=== PATIENT | female | born 1940 | race Caucasian/White ===

== ENCOUNTER 2020-02-03 07:33 | Emergency (ER) | payer MEDICARE, SELFPAY ==
--- NOTE | ~2020-02-03 | XR_ITS ---
EXAMINATION: XR chest 1V portable EXAM DATE: 02/03/2020 08:45 INDICATION: Hypoglycemia. TECHNIQUE: Portable AP frontal chest x-ray was obtained. There is no prior study for comparison. FINDINGS: Moderate chronic hyperinflation. The cardiomediastinal silhouette is prominent but magnifie d on this AP technique. No confluent consolidation, pneumothorax or pleural effusion suspected. There is aortic arteriosclerosis. The bones are osteopenic. There are bony degenerative changes. IMPRESSION: 1. Hyperinflation. Reviewed, dictated and finalized at location B. IMPRESSION: 1. Hyperinflation.
--- NOTE | ~2020-02-03 | XR_ITS ---
EXAMINATION: XR foot RT min 3V EXAM DATE: 02/03/2020 08:46 INDICATION: Postoperative right foot pain. Infection. TECHNIQUE: Right foot dorsoplantar, lateral and oblique projections obtained and reviewed. There is no prior study for comparison. FINDINGS: Surgical changes from probable recent right 5th transmetatarsal amputation, with small foc i of subcutaneous gas identified laterally. Deformities to the 2nd-4th metatarsal bones. There is sof t tissue swelling. No evidence of acute erosive change. No radiopaque foreign bodies identified. 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 IMPRESSION: 1. Subcutaneous gas probably postoperative from recent right 5th transmetatarsal amputation, assumin g surgery was within the last week. Please clinically correlate. 2. Soft tissue swelling. 3. Chronic findings. Reviewed, dictated and finalized at location B. IMPRESSION: 1. Subcutaneous gas probably postoperative from recent right 5th transmetatars al amputation, assuming surgery was within the last week. Please clinically cor relate. 2. Soft tissue swelling. 3. Chronic findings.
[2020-02-03 07:30] VITALS: BP 114/71; PULSE 68; RESP 20; TEMP 36.7; O2SAT 95
--- NOTE | 2020-02-03 07:53 | ECG_ITS ---
Measurements Intervals [place] Rate: 63 P: 83 DC: 164 QRS: 68 QRSD: 87 T: 39 QT: 396 QTc: 408 Interpretive Statements SINUS RHYTHM NORMAL ECG Electronically Signed On 02-03-2020 12:07:46 CDT by David Villasenor D.O.
[2020-02-03 08:00] VITALS: BP 123/45; PULSE 63; RESP 16; O2SAT 98
[2020-02-03 08:02] LABS: Glucose Point of Care 108 (65-105)
--- NOTE | 2020-02-03 08:02 | ED.RECABL ---
HPI - Recheck/Abnormal Lab/Rx General Chief Complaint: Recheck/Abnormal Lab/Rx Stated Complaint: Low Blood Sugar Time Seen by Provider: 02/03/20 07:36 Source: patient Mode of arrival: EMS History of Present Illness HPI narrative: This patient is an 79 year old female with history of DM, HTN, osteomyelitis s/p right partial foot amputation 01/21/20 who presents for evaluation of hypoglycemia. Patient is staying at [facility] and this morning they found patient to have glucose of 32. Patient is unsure if she takes insulin but she states she felt fine before bed. She has no complaints now. She denies chest pain, sob, nausea, vomiting or fever. Related Data Home Medications Medication Instructions Recorded Confirmed albuterol sulfate INHALATION 02/03/20 02/03/20 carvedilol 02/03/20 fluticasone propion-salmeterol INHALATION 02/03/20 furosemide 02/03/20 glimepiride mg 02/03/20 lisinopril 02/03/20 lovastatin mg 02/03/20 potassium chloride meq PO 02/03/20 Allergies Allergy/AdvReac Type Severity Reaction Status Date / Time codeine Allergy Rash Verified 02/03/20 08:28 vancomycin Allergy Difficulty Verified 02/03/20 08:29 Breathing Review of Systems Review of Systems: All systems reviewed & are unremarkable except as noted in HPI and below Constitutional: Constitutional: Denies chills, Denies fever(s) and Denies weakness Cardiovascular: Cardiovascular: Denies chest pain and Denies radiating jaw, neck or arm pain Respiratory: Respiratory: Denies cough, Denies dyspnea and Denies wheezing Gastrointestinal: Gastrointestinal: Denies abdominal pain, Denies nausea and Denies vomiting [facility] Past Medical History Medical History (Updated 02/03/20 @ 11:08 by Serina Mcintosh MD) COPD (chronic obstructive pulmonary disease) Diabetes mellitus Hypertension Hypothyroid Surgical History Surgical History (Updated 02/03/20 @ 08:04 by Serina Mcintosh MD) Partial nontraumatic amputation of right foot Partial traumatic amputation of left foot Exam Const: General: no acute distress and alert Orientation/consciousness: patient oriented x3 (oriented to person, place, and age) HENMT: Head: normocephalic and atraumatic Face and sinus: face symmetric Mouth: Yes Normal oral and palatal mucosa present and Yes lip normal Eyes: Pupils: Equal, round and reactive pupils present EOM: EOMs intact bilaterally Resp: Effort & Inspection: normal respiratory effort, no retractions and no use of accessory muscles Auscultation: clear to auscultation bilaterally Cardio: Rate: regular rate Rhythm: regular rhythm GI: Inspection: non-distended Auscultation: normal bowel sounds and bowel sounds present Skin: Other: right foot with wound with sutures in place, there is opening to wound medial with purulent discharge and erythema Neuro: General: patient oriented x3 and moves all extremities Course Reevaluation(s) Reevaluation #1: I Discussed with patient and family that she has been accepted to [facility] since she has post op infection Date: 02/03/20 Time: 11:06 Consultations Consultation #1: I spoke with Dr. Lisa copeland who request patient to be given teflaro since she has allergy to vancomycin. He states patient may be accepted to tele. Date: 02/03/20 Time: 10:40 Vital Signs Vital signs: Vital Signs Temperature 98.0 F 02/03/20 07:30 Pulse Rate 68 02/03/20 07:30 Respiratory Rate 20 02/03/20 07:30 Blood Pressure 114/71 02/03/20 07:30 Pulse Oximetry 95 02/03/20 07:30 Temperature 98.0 F 02/03/20 07:30 Pulse Rate 64 02/03/20 11:15 Respiratory Rate 18 02/03/20 11:15 Blood Pressure 121/53 L 02/03/20 11:15 Pulse Oximetry 98 02/03/20 11:15 MDM - Recheck/Abnormal Lab/Rx Lab Data Attestation: I reviewed the patient's lab results. Result diagrams: 02/03/20 08:12 02/03/20 08:12 Labs: Lab Results 02/03/20 02/03/20 02/03/20 Range/Units
[2020-02-03 08:23] LABS: Basophils Absolute Auto 0.1 K/mm3 (0.0-0.1); Basophils Percent Auto 0.6 % (0.2-1.2); Eosinophils Percent Auto 4.1 % (0-4.4); Hematocrit 29.6 % (37.0-47.0); Hemoglobin 9.2 g/dL (12.0-15.0); Immature Granulocyte Percent A 2.1 % (0-0.5); Lymphocytes Absolute Auto 1.55 K/mm3 (0.9-3.2); Lymphocytes Percent Auto 6.5 % (18.3-44.2); Mean Corpuscular HGB Conc 31.1 g/dl (32-36); Mean Corpuscular Hemoglobin 29.2 pg (26-34); Mean Platelet Volume 9.5 fl (7.4-10.4); Monocytes Absolute Auto 1.1 K/mm3 (0.1-0.6); Monocytes Percent Auto 4.4 % (2.6-8.5); Neutrophils Absolute Auto 19.7 K/mm3 (1.3-6.7); Neutrophils Percent Auto 82.3 % (45.5-73.1); Platelet Count Result 483 k/mm3 (150-375); Red Blood Count 3.15 M/mm3 (4.2-5.4); Red Cell Distribution Width 14.1 % (11.5-14.5); White Blood Count 23.9 K/mm3 (4.5-10.0)
[2020-02-03 08:34] LABS: Blood Urea Nitrogen 32 mg/dL (7-17); Calcium 8.4 mg/dL (8.4-10.2); Carbon Dioxide 29 mmol/L (22-30); Chloride 103 mmol/L (98-107); Estimated Glomerular Filt Rate 53; Glucose 157 mg/dL (65-105); Potassium 4.6 mmol/L (3.4-5.0); Sodium 137 mmol/L (137-145)
[2020-02-03 09:00] VITALS: BP 109/50; PULSE 63; RESP 18; O2SAT 98
[2020-02-03 10:00] VITALS: BP 107/41; PULSE 63; RESP 16; O2SAT 97
[2020-02-03 10:28] LABS: Glucose Point of Care 157 (65-105)
[2020-02-03] MEDS: SODIUM CHLORIDE 0.9% IV 1,000 ML 999 ML IV CONT (10:52)
[2020-02-03 10:54] LABS: Add Urine Microscopic? YES; Appearance Urine Clear (Clear); Bacteria Urine Trace /hpf; Bilirubin Urine Negative (Negative); Color Urine Yellow (Yellow); Glucose Urine UA Negative (Negative); Ketones Urine Negative (Negative); Leukocyte Esterase Ur Trace LEU/UL (Negative); Mucus Urine Rare /lpf; Nitrate Urine Negative (Negative); Protein Urine 1+ mg/dL (Negative); Specific Grav Ur 1.015 (1.001-1.035); Squamous Epithelial Cell Urine Occasional /hpf (Few); Urobilinogen Urine Negative mg/dL (<2.0)
[2020-02-03 10:55] LABS: Blood Urine Negative (Negative)
[2020-02-03 11:15] VITALS: BP 121/53; PULSE 64; RESP 18; O2SAT 98
== END 2020-02-03 12:00 | disposition short-term general hospital (02) ==
PROVIDERS: Emergency Provider General Practice
DX: T87.43 Infection of amputation stump, right lower extremity (principal); E11.649 Type 2 diabetes mellitus with hypoglycemia without coma; D72.829 Elevated white blood cell count, unspecified; J44.9 Chronic obstructive pulmonary disease, unspecified; I10 Essential (primary) hypertension; E03.9 Hypothyroidism, unspecified; Z89.432 Acquired absence of left foot; Z89.431 Acquired absence of right foot; Z79.84 Long term (current) use of oral hypoglycemic drugs
CPT/HCPCS: 36415; 71045; 73630; 80048; 81001; 85025; 86140; 87086; 93005; 96365; 96367; 99285; J0131; J0712; J2543; J7030

== ENCOUNTER 2020-02-22 16:38 | Observation (INO) | payer MEDICARE, SELFPAY ==
--- NOTE | ~2020-02-22 | XR_ITS ---
EXAMINATION: XR chest 1V portable INDICATION: Shortness of breath and hypoxia TECHNIQUE: Portable AP chest at 1811 hours COMPARISON: 02/03/2020 FINDINGS: The lungs are free of acute opacities. There is no pleural effusion or pneumothorax. The he art size is normal. There is calcified atherosclerosis. Healed left-sided rib fractures are noted. IMPRESSION: 1. No acute cardiopulmonary abnormality. Reviewed, dictated and finalized at location A.
--- NOTE | ~2020-02-22 | NM_ITS ---
EXAMINATION: NM pulmonary perfusion DATE: 02/22/2020 21:10 INDICATION: Shortness of breath TECHNIQUE: 5.23 mCi Tc-99m MAA was administered intravenously for perfusion images. Scintigraphic ida ges of the chest were obtained. COMPARISON: None FINDINGS: Perfusion images show multiple nonsegmental defects in both lungs. IMPRESSION: 1. Low probability for pulmonary embolism. Reviewed, dictated and finalized at location A.
[2020-02-22 16:46] VITALS: BP 106/57; PULSE 63; RESP 20; O2SAT 97
--- NOTE | 2020-02-22 17:28 | ECG_ITS ---
Measurements Intervals [place] Rate: 56 P: 89 TX: 178 QRS: 73 QRSD: 87 T: 69 QT: 397 QTc: 385 Interpretive Statements SINUS BRADYCARDIA BASELINE ARTIFACT- I, III, AVL BORDERLINE ECG Electronically Signed On 02-23-2020 7:35:47 CDT by David Villasenor D.O.
--- NOTE | 2020-02-22 17:46 | ED.GENADULT ---
HPI - General Adult General Chief complaint: Shortness of Breath/Dyspnea Stated complaint: SOB Time Seen by Provider: 02/22/20 16:41 History of Present Illness HPI narrative: Patient is a 79 y/o female sent from [place] for SOB. The severity and onset is unknown. Patient currently denies SOB. She states that she feels fine and does not know why she is here. She also denies any chest pain or cough. Related Data Home Medications Medication Instructions Recorded Confirmed albuterol sulfate 2 inh INHALATION BID 02/03/20 02/03/20 carvedilol 02/03/20 fluticasone propion-salmeterol INHALATION 02/03/20 furosemide 02/03/20 glimepiride mg 02/03/20 lisinopril 02/03/20 lovastatin mg 02/03/20 potassium chloride meq PO 02/03/20 Allergies Allergy/AdvReac Type Severity Reaction Status Date / Time codeine Allergy Rash Verified 02/22/20 16:52 vancomycin Allergy Difficulty Verified 02/22/20 16:52 Breathing Review of Systems Review of Systems: ROS unobtainable: Yes unobtainable due to mental status [facility] Past Medical History Medical History COPD (chronic obstructive pulmonary disease) Diabetes mellitus Hypertension Hypothyroid Surgical History Surgical History Partial nontraumatic amputation of right foot Partial traumatic amputation of left foot Social History Social History Gender identity (if verbalized by the patient): Female Exam Const: General: no acute distress and well developed Orientation/consciousness: oriented to person and oriented to place HENMT: Head: normocephalic Ears: external ears normal General nose exam: Normal external nose present Eyes: General: appearance normal, both eyes and all related structures Conjunctivae: conjunctivae normal Neck: Neck: normal visual inspection and full ROM Chest: Chest palpation & inspection: normal inspection of the chest and no tenderness Resp: Effort & Inspection: normal respiratory effort Auscultation: clear to auscultation bilaterally Cardio: Rate: regular rate Rhythm: regular rhythm GI: GI Palp: No abdominal tenderness and Yes Soft to palpation Skin: General skin exam: normal color and turgor normal Neuro: General: oriented to person and oriented to place Cognition (Neuro): normal cognition Extrem: General: normal to inspection, full ROM and no pedal edema Other: s/p bilateral partial foot amputation Psych: Appearance: grossly normal Mental Status: mental status grossly normal Affect: normal affect Course Consultations Consultation #1: Discussed with Dr. Palma, who agrees to admit. Date: 02/22/20 Time: 22:50 Vital Signs Vital signs: Vital Signs Pulse Rate 63 02/22/20 16:46 Respiratory Rate 20 02/22/20 16:46 Blood Pressure 106/57 L 02/22/20 16:46 Pulse Oximetry 97 02/22/20 16:46 Pulse Rate 88 02/22/20 21:25 Respiratory Rate 20 02/22/20 21:25 Blood Pressure 102/52 L 02/22/20 21:25 Pulse Oximetry 92 02/22/20 21:25 Medical Decision Making Vital Signs Vital Signs: Vital Signs Pulse Rate 63 02/22/20 16:46 Respiratory Rate 20 02/22/20 16:46 Blood Pressure 106/57 L 02/22/20 16:46 Pulse Oximetry 97 02/22/20 16:46 Pulse Rate 88 02/22/20 21:25 Respiratory Rate 20 02/22/20 21:25 Blood Pressure 102/52 L 02/22/20 21:25 Pulse Oximetry 92 02/22/20 21:25 Lab Data Result diagrams: 02/22/20 18:33 02/22/20 18:33 Labs: Lab Results 02/22/20 02/22/20 02/22/20 Range/Units 18:33 18:33 18:33 WBC 11.9 H (4.5-10.0) K/mm3 RBC 3.78 L (4.2-5.4) M/mm3 Hgb 11.0 L (12.0-15.0) g/dL Hct 34.9 L (37.0-47.0) % MCV 92.3 (80-100) fl MCH 29.1 (26-34) pg MCHC 31.5 L (32-36) g/dl RDW 14.7 H (11.5-14.5) % Plt Count 234 D (150-375) k/mm3 MPV 10.0 (7.4-10.4)
[2020-02-22 18:41] LABS: Basophils Absolute Auto 0.1 K/mm3 (0.0-0.1); Basophils Percent Auto 0.8 % (0.2-1.2); Eosinophils Absolute Auto 1.2 K/mm3 (0-0.3); Eosinophils Percent Auto 9.7 % (0-4.4); Hematocrit 34.9 % (37.0-47.0); Immature Granulocyte Absolute 0.06 K/mm3 (0.00-0.031); Immature Granulocyte Percent A 0.5 % (0-0.5); Lymphocytes Absolute Auto 2.36 K/mm3 (0.9-3.2); Lymphocytes Percent Auto 19.9 % (18.3-44.2); Mean Corpuscular HGB Conc 31.5 g/dl (32-36); Mean Corpuscular Hemoglobin 29.1 pg (26-34); Mean Corpuscular Volume 92.3 fl (80-100); Neutrophils Absolute Auto 7.3 K/mm3 (1.3-6.7); Neutrophils Percent Auto 61.1 % (45.5-73.1); Platelet Count Result 234 k/mm3 (150-375); Red Blood Count 3.78 M/mm3 (4.2-5.4); Red Cell Distribution Width 14.7 % (11.5-14.5); White Blood Count 11.9 K/mm3 (4.5-10.0)
[2020-02-22 18:55] LABS: Alanine Aminotransferase 25 U/L (4-35); Albumin Level 3.4 g/dL (3.5-5.1); Alkaline Phosphatase 99 U/L (38-126); Aspartate Amino Transferase 40 U/L (14-36); Bilirubin,Total 0.3 mg/dL (0.2-1.3); Blood Urea Nitrogen 64 mg/dL (7-17); Calcium 9.2 mg/dL (8.4-10.2); Carbon Dioxide 27 mmol/L (22-30); Chloride 101 mmol/L (98-107); Estimated Glomerular Filt Rate 27; Glucose 77 mg/dL (65-105); Potassium 5.4 mmol/L (3.4-5.0); Sodium 135 mmol/L (137-145)
[2020-02-22 19:03] LABS: NT Pro B Type Natriuretic Pept 334 PG/ML (5-100)
[2020-02-22 19:05] LABS: Troponin I < 0.012 ng/mL (0.000-0.034)
[2020-02-22 19:20] VITALS: BP 91/56; PULSE 56; RESP 20; O2SAT 92
[2020-02-22 20:24] VITALS: BP 106/34; PULSE 56; RESP 20; O2SAT 92
[2020-02-22] MEDS: SODIUM CHLORIDE 0.9% IV 1,000 ML 999 ML IV CONT (20:25)
--- NOTE | 2020-02-22 20:41 | PC.NURSE ---
Called lab to draw pt 3 hour
[2020-02-22 21:11] LABS: Troponin I < 0.012 ng/mL (0.000-0.034)
[2020-02-22 21:25] VITALS: BP 102/52; PULSE 88; RESP 20; O2SAT 92
[2020-02-22 23:59] LABS: Troponin I < 0.012 ng/mL (0.000-0.034)
[2020-02-23 00:35] VITALS: BP 110/36; PULSE 61; RESP 16; TEMP 36.5; O2SAT 94; BMI 23.6
[2020-02-23] MEDS: SODIUM CHLORIDE 0.9% IV 1,000 ML 999 ML IV CONT (00:43)
--- NOTE | 2020-02-23 00:54 | ADMGEN ---
This patient, Sandra Levine, was admitted to [facility] Surg Room 323-01. Patient/family oriented to hospital policies and general routines including ID bracelet, bed and alarms, visiting hours, pain management, procedures, bathroom and other care routines, personal items, smoking policy, room service/diet, and visiting hours. Valuables list has been completed. Information on how to activate the Rapid Response Team has been discussed. Patient/Family are encouraged to report perceived risks to care and to ask questions if they do not understand what they are told or what they should do.
[2020-02-23] MEDS: SODIUM CHLORIDE 0.9% IV 1,000 ML 125 ML IV CONT (01:07)
[2020-02-23 06:00] VITALS: BP 113/34; PULSE 60; RESP 16; TEMP 36.7; O2SAT 95
[2020-02-23 06:22] LABS: Blood Urea Nitrogen 56 mg/dL (7-17); Calcium 8.6 mg/dL (8.4-10.2); Carbon Dioxide 23 mmol/L (22-30); Chloride 108 mmol/L (98-107); Estimated Glomerular Filt Rate 36; Glucose 77 mg/dL (65-105); Potassium 4.5 mmol/L (3.4-5.0); Sodium 137 mmol/L (137-145)
[2020-02-23 10:05] LABS: Glucose Point of Care 78 (65-105)
--- NOTE | 2020-02-23 10:21 | PM.IMHP ---
H&P: HPI History of Present Illness Chief complaint: gurpreet Narrative: Sandra Levine is a 79 year old female with a history of COPD, DM noninsulin dependent, hypothyroidism, who presented to the ER from [facility] after the patient was feeling short of breath. Patient states yesterday she was feeling short of breath and cannot get a deep breath than that is why she came to the emergency department. She denies any other associated symptoms of chest pain, fever, chills, cough, lightheadedness, dizziness, nausea, vomiting, abdominal pain, leg swelling, calf pain, change of color to her urine in the Casanova catheter, or confusion. I called the patient's SNF and talked to the nurse in charge of her who stated that yesterday she became very short of breath and was using accessory muscle use. Her oxygen saturation was 92% on room air but normally she is in the upper 90s. he was concerned due to her recent surgery and sudden shortness of breath that she needs to be sent to the emergency room for further evaluation. He stated that this was not like her and they called 911. He denies any confusion or any other associated symptoms other than the shortness of breath. Initial vital signs showed temperature of 97.7F, blood pressure 106/57, heart rate 63, respiratory rate 20, oxygen saturation 97% on room air. Initial labs showed slight leukocytosis at 11,000, normocytic anemia with a hemoglobin of 11/ hematocrit 34%. She appeared dehydrated with a creatinine 1.8, BUN 64, sodium 135, potassium elevated at 5.4. D-dimer was elevated at 5.4. troponin was negative x2. BNP was 334. chest x-ray showed no acute cardiopulmonary disease. Patient was admitted into the hospital for further evaluation of her shortness of breath and to receive a pulmonary perfusion scan to rule out pulmonary embolism. She was started on IV fluid hydration due to dehydration and GURPREET on labs. On January 18, the patient was found to have stepped on a needle and had a deep infection to her right great toe which required amputation at [facility] [place]. She was discharged to [facility] where she received wound care treatment and physical therapy. She developed a severe infection and required IV Zosyn which was discontinued on February 15. Patient's SNF nurse states her wound has been looking were well and is still having packing and dressing changes daily. Code: Full Code POA: Daughter Vladimir PCP: Dr. 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 Needed amputation to all 5 toes Social History Social History Smoking packs per day: 1 Smoking cigarettes per day: 20.0 Years smoked: 50 Smoking pack-years: 50.00 Smoking status: Former smoker Tobacco type: cigarettes Alcohol intake: never Substance use: never Additional living arrangements comments: Currently living at [facility] due to recent toe amputation and needing therapy Occupation/Education: retired Gender identity (if verbalized by the patient): Female Sexual Orientation (if Verbalized by the Patient): Straight or Heterosexual Spiritual care concerns: No Meds Home Medications and Allergies Home Medications Medication Instructions Recorded Confirmed Type albuterol sulfate 2 inh INHALATION BID 02/03/20 02/23/20 History carvedilol [Coreg] 25 mg PO DAILY 02/03/20 History furosemide 40 mg PO DAILY 02/03/20 02/23/20 History
[2020-02-23 10:48] LABS: Basophils Absolute Auto 0.1 K/mm3 (0.0-0.1); Basophils Percent Auto 0.8 % (0.2-1.2); Hematocrit 32.6 % (37.0-47.0); Hemoglobin 10.3 g/dL (12.0-15.0); Immature Granulocyte Absolute 0.04 K/mm3 (0.00-0.031); Immature Granulocyte Percent A 0.5 % (0-0.5); Lymphocytes Percent Auto 21.1 % (18.3-44.2); Mean Corpuscular HGB Conc 31.6 g/dl (32-36); Mean Corpuscular Hemoglobin 29.3 pg (26-34); Mean Corpuscular Volume 92.9 fl (80-100); Monocytes Absolute Auto 0.7 K/mm3 (0.1-0.6); Neutrophils Absolute Auto 4.9 K/mm3 (1.3-6.7); Neutrophils Percent Auto 57.6 % (45.5-73.1); Platelet Count Result 213 k/mm3 (150-375); Red Blood Count 3.51 M/mm3 (4.2-5.4); Red Cell Distribution Width 14.6 % (11.5-14.5); White Blood Count 8.5 K/mm3 (4.5-10.0)
[2020-02-23 11:10] LABS: Troponin I < 0.012 ng/mL (0.000-0.034)
[2020-02-23] MEDS: SODIUM CHLORIDE 0.9% IV 1,000 ML 75 ML IV CONT (12:11)
[2020-02-23 12:16] LABS: Add Urine Microscopic? YES; Appearance Urine Cloudy (Clear); Bacteria Urine Trace /hpf; Bilirubin Urine Negative (Negative); Blood Urine 1+ (Negative); Budding Yeast Urine Present /hpf; Color Urine Straw (Yellow); Glucose Urine UA Negative (Negative); Ketones Urine Negative (Negative); Leukocyte Esterase Ur 3+ LEU/UL (Negative); Mucus Urine Rare /lpf; Nitrate Urine Negative (Negative); Protein Urine Negative (Negative); Specific Grav Ur 1.012 (1.001-1.035); Squamous Epithelial Cell Urine Rare /hpf (Few); Urobilinogen Urine Negative mg/dL (<2.0); WBC Urine >75 /hpf
[2020-02-23 13:36] LABS: Glucose Point of Care 97 (65-105)
[2020-02-23 13:47] VITALS: BP 126/58
[2020-02-23 14:00] VITALS: BP 126/50; PULSE 62; RESP 16; TEMP 36.3; O2SAT 92
--- NOTE | 2020-02-23 14:14 | PM.DS ---
DS: Admitting Diagnosis Admitting Diagnosis Admitting Diagnosis: Shortness of breath DS: Discharge Diagnosis Discharge Diagnosis (1) Breath shortness: Code(s): R06.02 - Shortness of breath Status: Acute Assessment and Plan: She was sent to emergency room due to shortness of breath and using accessory muscles. Could have been secondary to COPD exacerbation or possibly an anxiety attack. She was placed on oxygen in route but is now resting comfortably on room air with 95%. Her lung sounds are clear without any new acute wheezing, rales or rhonchi. Chest x-ray was negative for any acute pulmonary disease. D-dimer was elevated and pulmonary perfusion study was completed showing low probability for PE. Patient is otherwise feeling well at this time without any complaints resting comfortably on room air. She will be discharged back to her SNF to continue with her inhaler as needed for shortness of breath. (2) GURPREET (acute kidney injury): Code(s): N17.9 - Acute kidney failure, unspecified Status: Acute Assessment and Plan: appear to be dehydrated on arrival with her labs showing a creatinine 1.8, BUN 64, and elevated potassium level of 5.4. She was started on IV fluids with improvement of her electrolytes and renal function. Will check BMP in 1 week. (3) COPD (chronic obstructive pulmonary disease): Code(s): J44.9 - Chronic obstructive pulmonary disease, unspecified Status: Acute Assessment and Plan: she is on a p.r.n. albuterol inhaler which the nurse states she has not used in about a month. Will encourage use of this inhaler as needed for shortness of breath or wheezing. (4) Diabetes mellitus: Code(s): E11.9 - Type 2 diabetes mellitus without complications Status: Acute Assessment and Plan: Serum glucose this morning was 77. We are holding her home glimepiride. will have him continue checking her glucose upon discharge. (5) Hypertension: Code(s): I10 - Essential (primary) hypertension Status: Acute Assessment and Plan: blood pressure is stable. Continue her on her home medications. (6) Abnormal urinalysis: Code(s): R82.90 - Unspecified abnormal findings in urine Status: Acute Assessment and Plan: a urinalysis was ordered due to her some slight confusion on where she was and was found to be abnormal with concerns of possible UTI. I called the patient's SNF and inform them to start her on cefdinir 300 mg Q 12 for 7 days and will continue monitoring her urine culture results and will be call if there is any adjustments are needed. DS: Summary Hospital Course Reason for hospitalization: Sandra Levine is a 79 year old female with a history of COPD, DM noninsulin dependent, hypothyroidism, who presented to the ER from [facility] after the patient was feeling short of breath. Initial vital signs showed temperature of 97.7F, blood pressure 106/57, heart rate 63, respiratory rate 20, oxygen saturation 97% on room air. Initial labs showed slight leukocytosis at 11,000, normocytic anemia with a hemoglobin of 11/ hematocrit 34%. She appeared dehydrated with a creatinine 1.8, BUN 64, sodium 135, potassium elevated at 5.4. D-dimer was elevated at 5.4. troponin was negative x2. BNP was 334. chest x-ray showed no acute cardiopulmonary disease. Patient was admitted into the hospital for further evaluation of her shortness of breath and to receive a pulmonary perfusion scan to rule out pulmonary embolism. She was started on IV fluid hydration due to dehydration and GURPREET on labs. please see abov
--- NOTE | 2020-02-25 10:22 | PC.NURSE ---
Urine cx- 50,000-100,000 yeast isolated. KIRILL Rayo aware.
--- NOTE | 2020-02-28 10:40 | PC.NURSE ---
Spoke with Cecilia, nurse at [facility], caring for patient. Gave her order for Fluconazole 100 mg po for 3 days.Instructed her the urine cx grew out yeast. States agreement and understanding. KIRILL Rayo ordered med for patient.
== END 2020-02-23 17:05 ==
LOC: ANHED 23:14 → ANH3MEDSUR 23:23
PROVIDERS: Physician Assistant; Admitting Provider Family Medicine; Emergency Provider Emergency Medicine; PCP Internal Medicine; Visit Provider Family Medicine
DX: N17.9 Acute kidney failure, unspecified (principal); J44.9 Chronic obstructive pulmonary disease, unspecified; R06.02 Shortness of breath; R82.90 Unspecified abnormal findings in urine; E11.9 Type 2 diabetes mellitus without complications; E03.9 Hypothyroidism, unspecified; I10 Essential (primary) hypertension; Z87.891 Personal history of nicotine dependence; Z89.411 Acquired absence of right great toe; Z89.422 Acquired absence of other left toe(s)
CPT/HCPCS: 36415; 71045; 78580; 80048; 80053; 81001; 83880; 84484; 85025; 85380; 87086; 93005; 96360; 96361; 99285; A9540; G0378; J7030

== ENCOUNTER 2021-03-28 09:25 | Emergency (ER) | payer MEDICARE, SELFPAY ==
--- NOTE | ~2021-03-28 | XR_ITS ---
EXAMINATION: XR shoulder LT min 2V DATE: 03/28/2021 09:54 INDICATION: Left shoulder pain. Fall. TECHNIQUE: 4 views of left shoulder were obtained. COMPARISON: Chest single view 02/22/2020 FINDINGS: Bone alignment is normal. There is a nondisplaced avulsion fracture of greater tuberosity. There is moderate osteoarthritis of glenohumeral joint and mild osteoarthritis of acromioclavicular j oint. There are old healed left rib fractures. IMPRESSION: 1. Nondisplaced avulsion fracture of greater tuberosity of proximal left humerus. 2. Polyarticular osteoarthritis. Reviewed, dictated and finalized at location A. IMPRESSION: 1. Nondisplaced avulsion fracture of greater tuberosity of proximal left humeru s. 2. Polyarticular osteoarthritis.
[2021-03-28 09:30] VITALS: BP 153/91; PULSE 92; RESP 14; TEMP 36.5; O2SAT 98
--- NOTE | 2021-03-28 10:08 | ED.FALL ---
HPI - Fall General Chief Complaint: Fall Stated Complaint: Fall, L arm pain Time Seen by Provider: 03/28/21 09:37 Source: RN notes reviewed History of Present Illness HPI Narrative: Patient presents to emergency department from home for left shoulder pain. Patient states yesterday afternoon she tripped and fell onto her left side she states she had pain in her left shoulder since that time pain is with any movement she striking her head or loss of consciousness she denies any other injuries. Patient denies any pain in the elbow or wrist denies any numbness or tingling in the extremities Related Data Home Medications Medication Instructions Recorded Confirmed albuterol sulfate 2 inh INHALATION BID PRN 02/03/20 02/23/20 carvedilol [Coreg] 25 mg PO BID 02/03/20 02/23/20 furosemide 40 mg PO BID 02/03/20 02/23/20 Lantus U-100 Insulin 10 unit SUBCUT HS 02/23/20 02/23/20 levothyroxine 50 mcg PO DAILY 02/23/20 02/23/20 Allergies Allergy/AdvReac Type Severity Reaction Status Date / Time codeine Allergy Rash Verified 02/22/20 16:52 vancomycin Allergy Difficulty Verified 02/22/20 16:52 Breathing Review of Systems Review of Systems: Gen.: Denies fevers or chills Eyes: Denies eye pain or visual change ENT: Denies facial pain Respiratory: Denies shortness of breath CV: Denies chest pain GI: Denies abdominal pain nausea, emesis Musculoskeletal: See HPI Neuro: Denies numbness, tingling, weakness or focal weakness Skin: Denies rash Except as documented, all other systems reviewed and negative [facility] Past Medical History Medical History COPD (chronic obstructive pulmonary disease) Diabetes mellitus Hypertension Hypothyroid Surgical History Surgical History (Updated 02/23/20 @ 10:38 by Indira Chatterjee PA-C) 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 Needed amputation to all 5 toes Social History Social History Smoking packs per day: 1 Smoking cigarettes per day: 20.0 Years smoked: 50 Smoking pack-years: 50.00 Smoking status: Former smoker Tobacco type: cigarettes Alcohol intake: never Substance use: never Additional living arrangements comments: [facility] due to recent toe amputation and needing therapy Gender identity (if verbalized by the patient): Female Spiritual care concerns: No Exam Narrative: APPEARANCE: No acute distress, nontoxic, resting in bed EYES: EOMI HEENT: Normocephalic, atraumatic, RESPIRATORY: No respiratory distress Clear to auscultation bilaterally with no rhonchi wheezing or rales. CARDIOVASCULAR: Regular rate and rhythm without murmurs rubs or gallops. ABDOMINAL: Soft, nontender MUSCULOSKELETAl: No clubbing, cyanosis or edema. Tender to palpation in the left anterior lateral shoulder pain with any movement of the shoulder no tenderness left elbow or wrist, radial pulse 2+ neurovascular intact NEURO: Awake and alert. Following commands, speech normal, no focal deficits SKIN:: Warm, dry. No rashes lesions or abrasions PSYCHIATRIC: Normal affect/mood, Course Course Emergency Course: Discussed with patient results of workup and diagnosis. Discussed need for follow-up with primary care, proper use of medication, and reasons to return to the emergency department. Patient understands and agrees to current treatment plan. Discussed pain medication states she has taken [place] in the past with no allergic reaction Vital Signs Vital signs: Vital Signs Temperature 97.7 F 03/28/21 09:30 Pulse Rate 92 03/28/21 09:30 Respiratory Rate 14 03/28/21 09:30 Blood Pressure 153/91 H 03/28/21 09:30 Pulse Oximetry 98 03/28/21 09:30 Temperature 97.7 F 03/28/21 09:30 Pulse Rate 92 03/28/21 09:30 Respiratory Rate 14 03/28/21 09:3
[2021-03-28] MEDS: HYDROcodone/acetaminophen (*CRX) 5-325 MG TABLET 1 TAB PO (10:23)
[2021-03-28 10:38] VITALS: PULSE 70; RESP 12; O2SAT 99
== END 2021-03-28 10:39 | disposition home or self-care (01) ==
PROVIDERS: Emergency Provider Emergency Medicine; PCP Internal Medicine
DX: S42.255A Nondisplaced fracture of greater tuberosity of left humerus, initial encounter for closed fracture (principal); J44.9 Chronic obstructive pulmonary disease, unspecified; E11.9 Type 2 diabetes mellitus without complications; I10 Essential (primary) hypertension; E03.9 Hypothyroidism, unspecified; Z79.4 Long term (current) use of insulin; Z89.431 Acquired absence of right foot; Z87.891 Personal history of nicotine dependence; Z89.412 Acquired absence of left great toe; Z89.422 Acquired absence of other left toe(s); W01.0XXA Fall on same level from slipping, tripping and stumbling without subsequent striking against object, initial encounter
CPT/HCPCS: 73030; 99284; A4565; A9270

== ENCOUNTER 2021-04-26 14:40 | Emergency (ER) | payer MEDICARE, SELFPAY ==
--- NOTE | ~2021-04-26 | XR_ITS ---
EXAMINATION: XR chest 2V DATE: 04/26/2021 15:57 INDICATION: Shortness of breath. Feeling of fluid on the lungs. TECHNIQUE: frontal and lateral views of the chest were obtained. COMPARISON: Chest radiograph dated 02/22/2020 and left shoulder radiographs dated 03/28/2021 FINDINGS: Costochondral calcification projects over a skin fold at the lateral right lower lung zone. Small lef t pericardial fat pad. No focal airspace opacities, pulmonary edema, pleural effusion or pneumothorax . The cardiomediastinal silhouette is normal. Atherosclerotic aorta. Old healed left rib fractures. S ubacute nondisplaced fracture at the left greater tuberosity. IMPRESSION: 1. No acute cardiopulmonary disease. Reviewed, dictated and finalized at location A.
[2021-04-26 14:50] VITALS: BP 170/71; PULSE 78; RESP 20; TEMP 36.6; O2SAT 95
--- NOTE | 2021-04-26 14:57 | ECG_ITS ---
Measurements Intervals [place] Rate: 74 P: 78 LA: 165 QRS: 64 QRSD: 95 T: 89 QT: 382 QTc: 425 Interpretive Statements SINUS RHYTHM NONSPECIFIC ST & T-WAVE ABNORMALITY- INF/LAT LEADS BASELINE ARTIFACT- AVR, AVL, V3-V6 ABNORMAL ECG Electronically Signed On 04-26-2021 15:02:33 CDT by David Villasenor D.O.
[2021-04-26 15:25] LABS: Basophils Absolute Auto 0.1 K/mm3 (0.0-0.1); Eosinophils Absolute Auto 1.1 K/mm3 (0-0.3); Eosinophils Percent Auto 11.4 % (0-4.4); Hematocrit 40.4 % (37.0-47.0); Hemoglobin 13.2 g/dL (12.0-15.0); Immature Granulocyte Absolute 0.02 K/mm3 (0.00-0.031); Immature Granulocyte Percent A 0.2 % (0-0.5); Lymphocytes Percent Auto 17.1 % (18.3-44.2); Mean Corpuscular HGB Conc 32.7 g/dl (32-36); Mean Corpuscular Volume 94.8 fl (80-100); Mean Platelet Volume 10.4 fl (7.4-10.4); Monocytes Absolute Auto 0.9 K/mm3 (0.1-0.6); Monocytes Percent Auto 9.1 % (2.6-8.5); Neutrophils Absolute Auto 5.7 K/mm3 (1.3-6.7); Neutrophils Percent Auto 61.2 % (45.5-73.1); Platelet Count Result 194 k/mm3 (150-375); Red Blood Count 4.26 M/mm3 (4.2-5.4); Red Cell Distribution Width 13.4 % (11.5-14.5); White Blood Count 9.4 K/mm3 (4.5-10.0)
[2021-04-26 15:36] LABS: Alanine Aminotransferase 25 U/L (4-35); Albumin Level 3.6 g/dL (3.5-5.1); Alkaline Phosphatase 153 U/L (38-126); Anion Gap 6 mmol/L (8-16); Aspartate Amino Transferase 39 U/L (14-36); Bilirubin,Total 0.4 mg/dL (0.2-1.3); Blood Urea Nitrogen 24 mg/dL (7-17); Calcium 8.8 mg/dL (8.4-10.2); Carbon Dioxide 32 mmol/L (22-30); Chloride 101 mmol/L (98-107); Estimated CRCL calculation 30 ml/min; Estimated Glomerular Filt Rate 60; Glucose 236 mg/dL (65-110); Potassium 4.1 mmol/L (3.4-5.0); Sodium 139 mmol/L (137-145)
[2021-04-26 16:00] VITALS: BP 162/66; PULSE 70; RESP 20; O2SAT 98
[2021-04-26 16:30] LABS: NT Pro B Type Natriuretic Pept 614 pg/mL (5-100); Troponin I < 0.012 ng/mL (0.000-0.034)
--- NOTE | 2021-04-26 16:58 | ED.SOB ---
HPI - SOB/Dyspnea General Chief Complaint: Shortness of Breath/Dyspnea Stated Complaint: weakness Time Seen by Provider: 04/26/21 14:48 Source: patient and family Limitations: clinical condition History of Present Illness HPI Narrative: 81-year-old female Her daughter was getting her into the car to go to an appointment when she became short of breath and then drowsy After arriving here things seem to be pretty much back to normal, at any rate she is alert and no longer dyspneic She denied having any chest pain, no swelling, no productive cough or fever She did have a nondisplaced proximal humerus fracture a month ago but has been off of pain medication for 2 weeks and has been doing some light physical therapy Related Data Home Medications Medication Instructions Recorded Confirmed albuterol sulfate 2 inh INHALATION BID PRN 02/03/20 02/23/20 carvedilol [Coreg] 25 mg PO BID 02/03/20 02/23/20 furosemide 40 mg PO BID 02/03/20 02/23/20 Lantus U-100 Insulin 10 unit SUBCUT HS 02/23/20 02/23/20 levothyroxine 50 mcg PO DAILY 02/23/20 02/23/20 Allergies Allergy/AdvReac Type Severity Reaction Status Date / Time codeine Allergy Rash Verified 02/22/20 16:52 vancomycin Allergy Difficulty Verified 02/22/20 16:52 Breathing Review of Systems Review of Systems: All systems reviewed & are unremarkable except as noted in HPI and below Constitutional: Constitutional: Reports no additional constitutional complaints, Denies chills, Reports fatigue, Denies fever(s), Denies headache(s) and Reports weakness Eyes: Eyes: Reports no additional eye complaints and Denies change in vision ENT: Denies headache(s) and Denies sore throat Cardiovascular: Cardiovascular: Denies chest pain and Denies dyspnea Respiratory: Respiratory: Denies cough and Reports dyspnea Gastrointestinal: Gastrointestinal: Denies abdominal pain, Denies diarrhea and Denies vomiting Genitourinary: Genitourinary: Denies urinary frequency and Denies dysuria Musculoskeletal: Musculoskeletal: Denies deformity, Denies arthralgias, Denies joint swelling and Denies numbness Integumentary/Breasts: Skin/Breast: Denies rash and Denies wounds Neurologic: Denies headache(s), Denies focal weakness and Denies numbness Psychiatric: Psychiatric: Reports no additional psychiatric complaints Endocrine: Endocrine: Reports no additional endocrine complaints Hematologic/Lymphatic: Hematologic/Lymphatic: Reports no additional hematologic/lymphatic complaints Allergic/Immunologic: Allergic/Immunologic: Reports no additional allergic/immunologic complaints [facility] Past Medical History Medical History COPD (chronic obstructive pulmonary disease) Diabetes mellitus Hypertension Hypothyroid Surgical History Surgical History (Updated 02/23/20 @ 10:38 by Indira Chatterjee PA-C) 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 Needed amputation to all 5 toes Social History Social History Smoking packs per day: 1 Smoking cigarettes per day: 20.0 Years smoked: 50 Smoking pack-years: 50.00 Smoking status: Former smoker Tobacco type: cigarettes Alcohol intake: never Substance use: never Additional living arrangements comments: Currently living at [facility] due to recent toe amputation and needing therapy Gender identity (if verbalized by the patient): Female Sexual Orientation (if Verbalized by the Patient): Straight or Heterosexual Spiritual care concerns: No Exam Const: General: cooperative, no acute distress and alert Nutritional Appearance: thin Other: Frail, elderly HENMT: Head: normal to inspection, normocephalic, atraumatic, no contusions and no hematomas Ears: external ears normal General nose exam: no epistaxis Eyes: Conjunctiva
[2021-04-26 17:07] VITALS: BP 143/75; PULSE 72; RESP 20; O2SAT 96
[2021-04-26 18:00] VITALS: BP 159/67; PULSE 76; RESP 18; O2SAT 98
[2021-04-26 18:37] LABS: Troponin I < 0.012 ng/mL (0.000-0.034)
[2021-04-26 19:07] VITALS: BP 186/77; PULSE 70; RESP 18; O2SAT 99
[2021-04-26 19:20] VITALS: BP 186/77; PULSE 70; RESP 18; TEMP 36.8; O2SAT 98
== END 2021-04-26 19:20 | disposition home or self-care (01) ==
PROVIDERS: Emergency Provider Emergency Medicine; PCP Internal Medicine
DX: R06.00 Dyspnea, unspecified (principal); J44.9 Chronic obstructive pulmonary disease, unspecified; E11.9 Type 2 diabetes mellitus without complications; I10 Essential (primary) hypertension; E03.9 Hypothyroidism, unspecified; Z79.4 Long term (current) use of insulin; Z89.431 Acquired absence of right foot; Z89.422 Acquired absence of other left toe(s); Z89.412 Acquired absence of left great toe; Z87.891 Personal history of nicotine dependence; R94.31 Abnormal electrocardiogram [ECG] [EKG]
CPT/HCPCS: 36415; 71046; 80053; 83880; 84484; 85025; 93005; 99284

== ENCOUNTER 2021-05-01 07:22 | Outpatient (CLI) | payer MEDICARE, SELFPAY ==
--- NOTE | ~2021-05-01 | US_ITS ---
US right upper quadrant DATE: 05/01/2021 08:11 INDICATION: Elevated liver function tests. Elevated liver enzymes TECHNIQUE: Real-time imaging of liver, pancreas, gallbladder COMPARISON: None FINDINGS: The pancreas is not well demonstrated. There are numerous small dependent gallstones with some shadowing. No gallbladder wall thickening. Ne gative sonographic Thornton's sign. The common bile duct measures 3.8 mm, normal. IMPRESSION: Cholelithiasis Probable approximately 1 cm hepatic cyst Limited evaluation of the pancreas Reviewed, dictated and finalized at Location [facility]. Reviewed, dictated and finalized at location B.
== END 2021-05-01 07:23 | disposition home or self-care (01) ==
PROVIDERS: PCP Internal Medicine; Visit Provider Internal Medicine
DX: R74.8 Abnormal levels of other serum enzymes (principal); K80.20 Calculus of gallbladder without cholecystitis without obstruction
CPT/HCPCS: 76705

== ENCOUNTER 2022-03-28 15:30 | Emergency (ER) | payer MEDICARE, SELFPAY ==
--- NOTE | ~2022-03-28 | CT_ITS ---
EXAMINATION: CT abdomen pelvis w con DATE: 03/28/2022 16:51 INDICATION: Abdominal pain TECHNIQUE: Computed tomography (CT) of the abdomen and pelvis was performed with 100 mL Omnipaque-350 intravenous contrast. Automated exposure control and iterative reconstruction technique were employe d. The dose-length product was 262.94 mGy-cm. COMPARISON: None FINDINGS: Minimal discoid atelectasis/scarring at the lingula. Borderline heart size with atherosclerotic coron deshaun artery calcific location. No pericardial or pleural effusion. 1.2 cm cyst in the right hepatic lo be. Small high attenuation gallstones in the dependent aspect of the otherwise normal gallbladder. No intra or extrahepatic biliary ductal dilation. Splenic calcifications consistent with old granulomat ous disease. Pancreas and bilateral adrenal glands are normal. Multiple bilateral renal cysts the lar gest on the left measuring 2.7 cm. There is calcified atherosclerosis of the aorta and many of the ot her arteries. Fusiform infrarenal abdominal aortic aneurysm measuring up to 4.1 x 3.7 cm. There is mi ld colonic diverticulosis with a sigmoid predominance. There is no adjacent inflammatory change to s uggest diverticulitis. Small bowel and appendix are normal. Small right-sided bladder wall diverticul um. There is subtle haziness to the fat surrounding the bladder which could be seen with cystitis. Th e uterus is not identified and has likely been surgically resected. Pelvic floor relaxation. No free intraperitoneal gas or fluid. No pathologically enlarged abdominal or pelvic lymphadenopathy. Severe lower lumbar facet osteoarthritis. Otherwise mild scattered degenerative skeletal changes. IMPRESSION: 1. Mild haziness to the fat surrounding the bladder which could be seen with cystitis. Correlate with urinalysis. 2. 4.1 x 3.7 cm fusiform infrarenal abdominal aortic aneurysm. 3. Cholelithiasis. 4. Mild diverticulosis. Reviewed, dictated and finalized at location A. IMPRESSION: 1. Mild haziness to the fat surrounding the bladder which could be seen with cy stitis. Correlate with urinalysis. 2. 4.1 x 3.7 cm fusiform infrarenal abdominal aortic aneurysm. 3. Cholelithiasis. 4. Mild diverticulosis.
[2022-03-28 15:37] VITALS: BP 185/81; PULSE 81; RESP 20; TEMP 37.1; O2SAT 92
--- NOTE | 2022-03-28 15:44 | ED.SKABFB ---
HPI - Skin/Abscess/Foreign Bdy General Chief complaint: Skin/Abscess/Foreign Body Stated complaint: left sided abd pain Time Seen by Provider: 03/28/22 15:44 Source: patient and family Mode of arrival: wheelchair Limitations: no limitations History of Present Illness HPI narrative: 81 years old white female came to the emergency room from home complaining of left side abdominal pain for the last 2 to 3 days, today noticed some itching rash at the same area which is painful. She denies any fever, chills, nausea, vomiting. Patient complaining of general weakness, last bowel movement 2 days ago. Patient lives with her daughter and her son-in-law. Her main complaint on arrival to the emergency room is itching rash Related Data Home Medications Medication Instructions Recorded Confirmed albuterol sulfate 90 mcg/actuation 2 inh inhalation BID PRN Shortness 02/03/20 02/23/20 aerosol inhaler Of Breath carvedilol 25 mg tablet (Coreg) 25 mg PO BID 02/03/20 02/23/20 furosemide 40 mg tablet 40 mg PO BID 02/03/20 02/23/20 insulin glargine 100 unit/mL 10 unit subcut HS 02/23/20 02/23/20 subcutaneous solution (Lantus U-100 Insulin) levothyroxine 50 mcg tablet 50 mcg PO DAILY 02/23/20 02/23/20 Allergies Allergy/AdvReac Type Severity Reaction Status Date / Time codeine Allergy Rash Verified 03/28/22 15:42 vancomycin Allergy Difficulty Verified 03/28/22 15:42 Breathing Review of Systems Review of Systems: All systems reviewed & are unremarkable except as noted in HPI and below PMFSH Past Medical History Medical History COPD (chronic obstructive pulmonary disease) Diabetes mellitus Hypertension Hypothyroid Surgical History Surgical History 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 Needed amputation to all 5 toes Social History Social History Smoking packs per day: 1 Smoking cigarettes per day: 20.0 Years smoked: 50 Smoking pack-years: 50.00 Smoking status: Former smoker Tobacco type: cigarettes Alcohol intake: never Substance use: never Additional living arrangements comments: [facility] and needing therapy Gender identity (if verbalized by the patient): Female Sexual Orientation (if Verbalized by the Patient): Straight or Heterosexual Spiritual care concerns: No Exam Narrative: General appearance: Well-developed, well-nourished Skin: Normal color blisterlike rash on the left side of the abdomen and left side of the lower back consistent with shingles. Head: Normocephalic, nontraumatic Eyes: Clear conjunctiva ENT: Oropharynx normal, ears normal, nose normal Neck: Supple, nontender Chest and respiratory: Airway patent, no respiratory distress, no accessory muscle use Heart: Regular rate/rhythm Abdomen: Soft, nontender, no organomegaly, quiet bowel sounds Vascular: Normal peripheral pulses, normal capillary refill. Musculoskeletal: Normal range of motion, nontender back Neurologic: Alert and oriented ?3, [employer] is normal as tested, no gross motor deficit Course Course Emergency Course: Work-up today showed that the patient have elevated lipase, unknown underlying cause, could be the beginning of pancreatitis, patient will be discharged on clear liquid fluid and to follow-up with Dr. Puri tomorrow. Work-up also showed that patient have urinary tract infection which could be asymptomatic and her abdominal pain h
[2022-03-28] MEDS: SODIUM CHLORIDE 0.9% IV 1,000 ML 999 ML IV CONT (16:22)
[2022-03-28 16:30] LABS: Basophils Percent Auto 0.8 % (0.2-1.2); Eosinophils Percent Auto 0.4 % (0-4.4); Hematocrit 42.6 % (37.0-47.0); Hemoglobin 13.7 g/dL (12.0-15.0); Immature Granulocyte Absolute 0.01 K/mm3 (0.00-0.031); Immature Granulocyte Percent A 0.2 % (0-0.5); Lymphocytes Percent Auto 10.4 % (18.3-44.2); Mean Corpuscular HGB Conc 32.2 g/dl (32-36); Mean Corpuscular Hemoglobin 29.8 pg (26-34); Mean Corpuscular Volume 92.6 fl (80-100); Mean Platelet Volume 9.7 fl (7.4-10.4); Monocytes Absolute Auto 0.5 K/mm3 (0.1-0.6); Monocytes Percent Auto 11.2 % (2.6-8.5); Neutrophils Absolute Auto 3.7 K/mm3 (1.3-6.7); Platelet Count Result 142 k/mm3 (150-375); Red Cell Distribution Width 12.5 % (11.5-14.5); White Blood Count 4.8 K/mm3 (4.5-10.0)
[2022-03-28 16:36] LABS: Estimated CRCL calculation 25 ml/min; Estimated Glomerular Filt Rate 48
[2022-03-28 17:01] VITALS: BP 118/74; PULSE 74; RESP 16; TEMP 36.3; O2SAT 100
[2022-03-28 17:32] LABS: Appearance Urine Slightly Cloudy (Clear); Bilirubin Urine Negative (Negative); Blood Urine 1+ (Negative); Color Urine Yellow (Yellow); Glucose Urine UA Negative (Negative); Ketones Urine Negative (Negative); Leukocyte Esterase Ur 3+ LEU/UL (Negative); Nitrate Urine Negative (Negative); Protein Urine 2+ mg/dL (Negative); Specific Grav Ur 1.015 (1.001-1.035); Urobilinogen Urine 0.2 mg/dL (<2.0); pH Urine 7.5 (5.0-9.0)
[2022-03-28 17:35] LABS: Bacteria Urine Trace /hpf; Mucus Urine Rare /lpf; Squamous Epithelial Cell Urine Rare /hpf (Few); WBC Urine >75 /hpf
[2022-03-28 17:36] LABS: Add Urine Microscopic? YES
[2022-03-28 17:40] VITALS: BP 144/86; PULSE 78; RESP 16; O2SAT 97
[2022-03-28 17:43] LABS: Alanine Aminotransferase 18 U/L (6-35); Albumin Level 2.9 g/dL (3.5-5.1); Alkaline Phosphatase 91 U/L (38-126); Anion Gap 3 mmol/L (8-16); Aspartate Amino Transferase 33 U/L (14-36); Bilirubin,Total 0.7 mg/dL (0.2-1.3); Blood Urea Nitrogen 15 mg/dL (7-17); Calcium 7.9 mg/dL (8.4-10.2); Carbon Dioxide 33 mmol/L (22-30); Chloride 99 mmol/L (98-107); Estimated CRCL calculation 30 ml/min; Estimated Glomerular Filt Rate 60; Glucose 114 mg/dL (65-110); Lipase 967 U/L (23-300); Potassium 4.4 mmol/L (3.4-5.0); Sodium 135 mmol/L (137-145)
[2022-03-28 18:27] VITALS: BP 186/68; PULSE 75; RESP 16; O2SAT 95
== END 2022-03-28 18:28 | disposition home or self-care (01) ==
PROVIDERS: Emergency Provider Emergency Medicine; PCP Internal Medicine
DX: B02.9 Zoster without complications (principal); I71.4 Abdominal aortic aneurysm, without rupture; N39.0 Urinary tract infection, site not specified; R74.8 Abnormal levels of other serum enzymes; J44.9 Chronic obstructive pulmonary disease, unspecified; E11.9 Type 2 diabetes mellitus without complications; I10 Essential (primary) hypertension; E03.9 Hypothyroidism, unspecified; Z87.891 Personal history of nicotine dependence; Z79.4 Long term (current) use of insulin; Z89.431 Acquired absence of right foot; Z89.422 Acquired absence of other left toe(s); Z89.412 Acquired absence of left great toe; K80.20 Calculus of gallbladder without cholecystitis without obstruction; K57.90 Diverticulosis of intestine, part unspecified, without perforation or abscess without bleeding
CPT/HCPCS: 36415; 51701; 74177; 80053; 81001; 83690; 85025; 85055; 87086; 87147; 87181; 87186; 96360; 99284; J7030; Q9967

== ENCOUNTER 2023-01-20 23:44 | Observation (INO) | payer MEDICARE, SELFPAY ==
--- NOTE | ~2023-01-20 | XR_ITS ---
Portable chest x-ray Comparison: 04/26/2021 Clinical History: Weakness Findings: Lungs are clear, without focal consolidation or pleural effusion. Suspected COPD. Cardiom ediastinal silhouette is stable. Bones and soft tissues are unremarkable. Impression: COPD. Reviewed, dictated and finalized at location . Impression: COPD.
--- NOTE | ~2023-01-20 | CT_ITS ---
CT of the Abdomen and Pelvis: Indication: Abdominal pain Technique: 2.5 mm axial scans were obtained through the abdomen and pelvis following intravenous adm inistration of 100 cc of Omnipaque 350. Dose reduction technique was used on this scan by utilizing a utomated exposure control and iterative reconstruction technique. The dose-length product (DLP) was 1 95.55 mGy-cm. COMPARISON: 03/28/2022 Findings: Scans through the lung bases are unremarkable. The liver, spleen, and adrenal glands are within normal limits. Small gallstones present. There is be en marked interval progression of dilatation of the main pancreatic duct from the level of the pancre atic neck to the pancreatic tail. No well delineated mass lesion identified on this exam, but there i s abrupt transition point in caliber of the duct at the pancreatic neck. Multiple small bilateral uriel al cysts are present. Infrarenal abdominal aortic aneurysm measures up to 4.2 cm in maximum diameter. There are extensive atherosclerotic calcifications of the abdominal aorta. No lymphadenopathy. No bowel obstruction or bowel wall thickening. There is no evidence to suggest acute appendicitis. Images through the pelvis were performed. There is urinary bladder wall thickening diffusely. No pelv ic mass evident. No ascites. Impression: Interval development of pancreatic ductal dilatation from the level of the pancreatic neck through th e pancreatic tail. No clearly delineated obstructing mass evident on this exam, but underlying mass l esion must be suspected given the abrupt transition dilatation. Consider small IPMN or other neoplasm . Follow-up pre and postcontrast MR/MRCP advised. Urinary bladder wall thickening suggests cystitis. Correlate clinically. 4.2 cm infrarenal abdominal aortic aneurysm. Cholelithiasis. Reviewed, dictated and finalized at location . Impression: Interval development of pancreatic ductal dilatation from the level of the panc reatic neck through the pancreatic tail. No clearly delineated obstructing mass evident on this exam, but underlying mass lesion must be suspected given the a brupt transition dilatation. Consider small IPMN or other neoplasm. Follow-up p re and postcontrast MR/MRCP advised. Urinary bladder wall thickening suggests cystitis. Correlate clinically. 4.2 cm infrarenal abdominal aortic aneurysm. Cholelithiasis.
[2023-01-20 23:37] VITALS: BP 152/118; PULSE 88; RESP 16; TEMP 36.4; O2SAT 95
--- NOTE | 2023-01-20 23:58 | ECG_ITS ---
Measurements Intervals [place] Rate: 90 P: 87 [place]: 165 QRS: 80 QRSD: 88 T: 27 QT: 340 QTc: 417 Interpretive Statements SINUS RHYTHM COMPARED TO ECG 04/26/2021 14:59:47 NO SIGNIFICANT CHANGES Electronically Signed On 01-21-2023 15:02:10 CDT by Jennifer Lundberg M.D.
--- NOTE | 2023-01-21 00:36 | ED.WEAKNESS ---
HPI - Weakness General Chief complaint: Weakness Stated complaint: HYPOTENSIVE, GENERALIZED WEAKNESS Time Seen by Provider: 01/20/23 23:47 History of Present Illness HPI Narrative: This is an 82-year-old female with past history of COPD, diabetes, dementia with baseline orientation x2 brought in by EMS for generalized weakness for the past few days. EMS reports the patient lives alone, was recently discharged from outside hospital for urinary tract infection and family noted progressive weakness and decreased blood pressures. The patient complains of generalized weakness but has no other focal complaints. She denies chest pain or shortness of breath. Related Data Home Medications Medication Instructions Recorded Confirmed albuterol sulfate 90 mcg/actuation 2 inh inhalation BID PRN Shortness 02/03/20 04/01/22 aerosol inhaler Of Breath carvedilol 25 mg tablet (Coreg) 25 mg PO BID 02/03/20 04/01/22 furosemide 40 mg tablet 40 mg PO BID 02/03/20 04/01/22 insulin glargine 100 unit/mL 10 unit subcut HS 02/23/20 04/01/22 subcutaneous solution (Lantus U-100 Insulin) levothyroxine 50 mcg tablet 50 mcg PO DAILY 02/23/20 04/01/22 Allergies Allergy/AdvReac Type Severity Reaction Status Date / Time codeine Allergy Rash Verified 04/01/22 13:35 vancomycin Allergy Difficulty Verified 03/28/22 15:42 Breathing Review of Systems Review of Systems: CONSTITUTIONAL: Denies fever, chills, or sweats. CARDIOVASCULAR: Denies chest pain, palpitations, or edema. RESPIRATORY: Denies cough or dyspnea. GASTROINTESTINAL: Denies abdominal pain, nausea, vomiting, or diarrhea. GENITOURINARY: Denies dysuria or hematuria. MUSCULOSKELETAL: Denies back pain, joint pain, or myalgia. NEUROLOGIC: Denies headache, numbness, dizziness, or weakness. PSYCHIATRIC: Denies anxiety or depression. 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 Needed amputation to all 5 toes Social History Social History Smoking packs per day: 1 Smoking cigarettes per day: 20.0 Years smoked: 50 Smoking pack-years: 50.00 Smoking status: Former smoker Tobacco type: cigarettes Alcohol intake: never Substance use: never Additional living arrangements comments: Currently living at [facility] due to recent toe amputation and needing therapy Occupation/Education: retired Gender identity (if verbalized by the patient): Female Sexual Orientation (if Verbalized by the Patient): Straight or Heterosexual Spiritual care concerns: No Exam Narrative: GENERAL: Well-developed, well-nourished, and in no acute distress. HEAD: Normocephalic, atraumatic. EYES: PERRLA and EOMI. ENT: Nares clear, no rhinorrhea or epistaxis. Mucous membranes moist. Oropharynx without tonsillar hypertrophy exudate or other lesions. Bilateral TMs pearly cota nonbulging NECK: Supple. No adenopathy or masses. No carotid bruits or JVD CHEST: Clear to auscultation. No respiratory distress. No wheezes rales or rhonchi HEART: Regular rate and rhythm. No murmur heard. Normal peripheral pulses. ABDOMEN: Soft, nontender, nondistended, normal active bowel sounds. EXTREMITIES: Normal range of motion. No edema. SKIN: Warm, dry, no rash. NEURO: No focal deficits. Alert and oriented x3. PSYCH: Normal mood and affect. Course Course Emergency Course: 02:00 - Multiple IV attempts by the nursing staff have failed. I attempted to place a left AC ultrasound-guided IV that also failed. Will place a central line f
[2023-01-21] MEDS: CEFEPIME 2 GM/NS 50 ML 2 GM/50 ML BAG IVPB (00:43)
[2023-01-21 00:55] LABS: Need Manual Microscopic Reviewed; RBC Urine >100 /hpf (0-2); Squamous Epithelial Cell Urine Many /hpf (Few); WBC Urine >100 /hpf
[2023-01-21 01:00] LABS: Appearance Urine Cloudy (Clear); Bilirubin Urine 1+ (Negative); Blood Urine 3+ (Negative); Color Urine Amber (Yellow); Glucose Urine UA Negative (Negative); Ketones Urine Trace mg/dL (Negative); Leukocyte Esterase Ur 3+ LEU/UL (Negative); Nitrate Urine Negative (Negative); Protein Urine 2+ mg/dL (Negative); Specific Grav Ur 1.015 (1.001-1.035); Urobilinogen Urine 0.2 mg/dL (<2.0); pH Urine 5.5 (5.0-9.0)
[2023-01-21 01:01] LABS: Bacteria Urine 4+ /hpf
[2023-01-21 01:03] LABS: Add Urine Microscopic? YES
--- NOTE | 2023-01-21 02:15 | PC.NURSE ---
This RN and EDP obtained consent for patient to receive a central line catheter in the femoral artery from daughter who was in the waiting room. EDP went over risks and benefits of this procedure and the placement of the central line. This RN witnessed the consent and witnessed the daughter signing the consent form. The daughter verbalized understanding, and had no further questions at this time for EDP or this RN.
[2023-01-21 03:10] VITALS: PULSE 72
[2023-01-21 03:12] LABS: Basophils Absolute Auto 0.1 K/mm3 (0.0-0.1); Basophils Percent Auto 0.4 % (0.2-1.2); Eosinophils Percent Auto 0.1 % (0-4.4); Hemoglobin 12.5 g/dL (12.0-15.0); Immature Granulocyte Absolute 0.09 K/mm3 (0.00-0.031); Immature Granulocyte Percent A 0.6 % (0-0.5); Immature Platelet Fraction Pct 4.3 % (0.9-11.2); Lymphocytes Absolute Auto 0.45 K/mm3 (0.9-3.2); Lymphocytes Percent Auto 2.9 % (18.3-44.2); Mean Corpuscular HGB Conc 32.1 g/dl (32-36); Mean Corpuscular Hemoglobin 30.1 pg (26-34); Monocytes Percent Auto 6.5 % (2.6-8.5); Neutrophils Absolute Auto 13.8 K/mm3 (1.3-6.7); Neutrophils Percent Auto 89.5 % (45.5-73.1); Platelet Count Result 144 k/mm3 (150-375); Red Blood Count 4.15 M/mm3 (4.2-5.4); Red Cell Distribution Width 14.5 % (11.5-14.5); White Blood Count 15.4 K/mm3 (4.5-10.0)
[2023-01-21 03:17] LABS: Alanine Aminotransferase 21 U/L (6-35); Albumin Level 2.8 g/dL (3.5-5.1); Alkaline Phosphatase 91 U/L (38-126); Anion Gap 11 mmol/L (8-16); Aspartate Amino Transferase 43 U/L (14-36); Bilirubin,Total 0.7 mg/dL (0.2-1.3); Blood Urea Nitrogen 36 mg/dL (7-17); Calcium 8.6 mg/dL (8.4-10.2); Carbon Dioxide 18 mmol/L (22-30); Chloride 106 mmol/L (98-107); Estimated CRCL calculation 20 ml/min; Estimated Glomerular Filt Rate 36; Glucose 150 mg/dL (65-110); Potassium 4.2 mmol/L (3.4-5.0); Sodium 135 mmol/L (137-145)
[2023-01-21 03:19] LABS: Lactic Acid Reflex 1.3 mmol/L (0.7-2.0)
--- NOTE | 2023-01-21 04:43 | PM.IMHP ---
H&P: HPI History of Present Illness Date/Time: 01/21/23 04:43 Chief Complaint: generalized weakness Narrative: This is an 82 yo female with PMHx significant for T2DM, L transmetatarsal amputation, COPD, HTN, was brought to ED for evaluation due to AMS, generalized weakness, according to family. Patient is confused can not give any meaningful hx denies any pain, fevers, rigors, chills, n/v/abdominal pain/diarrhea, cough, sputum production, or pain or burning with urination. Preliminary work up was significant for ua with numerous wbc's present, BMP was significant for Cr of 1.4 BUN 36 a chest xr and a CT of abd/pel are currently in progress Review of Systems Review of Systems: ROS unobtainable: Yes unobtainable due to mental status (confusion, delirium.) [facility] Past Medical History Medical History (Updated 01/21/23 @ 04:58 by Corrie Mckeon MD) Abdominal aortic aneurysm Abdominal pain COPD (chronic obstructive pulmonary disease) Diabetes mellitus Hypertension Hypothyroid Surgical History Surgical History (Updated 01/21/23 @ 04:44 by Corrie Mckeon MD) 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 Needed amputation to all 5 toes Social History Social History Smoking packs per day: 1 Smoking cigarettes per day: 20.0 Years smoked: 50 Smoking pack-years: 50.00 Smoking status: Former smoker Tobacco type: cigarettes Alcohol intake: never Substance use: never Additional living arrangements comments: [facility] and needing therapy Occupation/Education: retired Gender identity (if verbalized by the patient): Female Sexual Orientation (if Verbalized by the Patient): Straight or Heterosexual Spiritual care concerns: No Meds Home Medications and Allergies Home Medications Medication Instructions Recorded Confirmed Type albuterol sulfate 90 mcg/actuation 2 inh inhalation BID PRN Shortness 02/03/20 04/01/22 History aerosol inhaler Of Breath carvedilol 25 mg tablet (Coreg) 25 mg PO BID 02/03/20 04/01/22 History furosemide 40 mg tablet 40 mg PO BID 02/03/20 04/01/22 History insulin glargine 100 unit/mL 10 unit subcut HS 02/23/20 04/01/22 History subcutaneous solution (Lantus U-100 Insulin) levothyroxine 50 mcg tablet 50 mcg PO DAILY 02/23/20 04/01/22 History hydrocodone 5 mg-acetaminophen 325 1 tablet PO QID PRN pain #12 tabs 03/28/21 04/01/22 Rx mg tablet cetirizine 10 mg capsule (Zyrtec) 10 mg PO DAILY PRN allergy 03/28/22 04/01/22 Rx symptoms #30 caps nitrofurantoin 100 mg PO Q12H 5 days #10 caps 03/28/22 04/01/22 Rx monohydrate/macrocrystals 100 mg capsule (Macrobid) tramadol 50 mg tablet (Ultram) 50 mg PO Q6H PRN pain #30 tabs 03/28/22 04/01/22 Rx valacyclovir 1 gram tablet 1,000 mg PO Q8H #21 tabs 03/28/22 04/01/22 Rx (Valtrex) Allergies Allergy/AdvReac Type Severity Reaction Status Date / Time codeine Allergy Rash Verified 04/01/22 13:35 vancomycin Allergy Difficulty Verified 03/28/22 15:42 Breathing Vital Signs Vital Signs - 24 hr 01/20/23 23:37 01/21/23 03:10 Temperature 97.5 F L Pulse Rate 88 72 Respiratory Rate 16 Blood Pressure 152/118 H Pulse Oximetry 95 Oxygen Delivery Room Air Exam Narrative: patient is lying in stretcher Const: General: comfortable, no acute distress, well developed, ill appearing, lethargic, patient obtunded, tired appearing and thin Nutritional Appearance: average body habitus Orientation/consciousness: patient oriented x3 HENMT: Head: normal to inspection, normocephalic and atraumatic Ears: hearing grossly normal bilaterally Face/Nose/Sinus: normal facial exam Face and sinus: normal facial exam Eyes: General: appearance normal, both eyes and all related structures Pupils: Equal, r
[2023-01-21] MEDS: SODIUM CHLORIDE 0.9% IV 1,000 ML 999 ML IV CONT (04:54)
[2023-01-21 05:08] VITALS: BP 122/77
--- NOTE | 2023-01-21 05:46 | ADMGEN ---
This patient, Sandra Levine, was admitted to 3 [facility] Surg Room 324-01. Patient/family oriented to hospital policies and general routines including ID bracelet, bed and alarms, visiting hours, pain management, procedures, bathroom and other care routines, personal items, smoking policy, room service/diet, and visiting hours. Information on how to activate the Rapid Response Team has been discussed. Patient/Family are encouraged to report perceived risks to care and to ask questions if they do not understand what they are told or what they should do.
[2023-01-21 06:10] VITALS: BP 143/106; PULSE 74; RESP 18; TEMP 36.3; O2SAT 100
[2023-01-21 06:20] VITALS: BMI 17.9
[2023-01-21 07:29] LABS: Glucose Point of Care 136 mg/dl (65-105)
[2023-01-21 10:13] VITALS: O2SAT 96
[2023-01-21] MEDS: CHOLECALCIFEROL 1,000 UNITS TABLET 1000 UNITS PO (11:21)
[2023-01-21] MEDS: ATORVASTATIN 10 MG TABLET PO (11:21)
[2023-01-21] MEDS: LOSARTAN POTASSIUM 100 MG TABLET PO (11:21)
[2023-01-21] MEDS: ASPIRIN 81 MG ENTERIC TABLET PO (11:21)
[2023-01-21] MEDS: LEVOTHYROXINE SODIUM 75 MCG TABLET PO (11:21)
[2023-01-21] MEDS: hydrOXYzine HCL 10 MG TABLET PO (11:21)
[2023-01-21] MEDS: MULTIVITAMINS /C LUTEIN (CENTRUM SILVER) TABLET *BKC 1 TAB PO (11:21)
[2023-01-21] MEDS: ONDANSETRON HCL ODT 4 MG TABLET PO (11:21)
[2023-01-21] MEDS: MIRTAZAPINE 15 MG TABLET PO (11:22)
[2023-01-21 11:32] LABS: Glucose Point of Care 130 mg/dl (65-105)
[2023-01-21] MEDS: NEOMYCIN/POLYMYXIN/BACITRACIN OINTMENT PACKET 1 PACKET (12:48)
[2023-01-21 13:58] VITALS: BMI 17.9
[2023-01-21 14:00] VITALS: BP 159/73; PULSE 79; RESP 18; TEMP 35.9; O2SAT 96
--- NOTE | 2023-01-21 14:09 | PCDIET ---
Pt needs assistance with all meals
--- NOTE | 2023-01-21 15:18 | PCPTNOTE ---
Attempted PT evaluation, patient initially agreed, but she refused to continue as she began to sit up. Will follow.
[2023-01-21 16:13] LABS: Glucose Point of Care 159 mg/dl (65-105)
[2023-01-21] MEDS: SODIUM CHLORIDE 0.9% IV 1,000 ML 50 ML IV CONT (20:15)
[2023-01-21] MEDS: CEFEPIME 1 GM/NS 50 ML 1 GM/50 ML BAG IVPB (20:16)
[2023-01-21] MEDS: diphenhydrAMINE HCl CAP 25 MG CAPSULE PO (20:16)
[2023-01-21 20:17] LABS: Glucose Point of Care 159 mg/dl (65-105)
[2023-01-21 21:01] VITALS: BP 118/54; PULSE 71; RESP 16; TEMP 36.5; O2SAT 99
[2023-01-22] MEDS: LEVOTHYROXINE SODIUM 75 MCG TABLET PO (05:33)
[2023-01-22 06:00] VITALS: BP 104/95; PULSE 88; RESP 14; TEMP 36.2; O2SAT 97
[2023-01-22 07:09] LABS: Basophils Absolute Auto 0.1 K/mm3 (0.0-0.1); Basophils Percent Auto 0.7 % (0.2-1.2); Eosinophils Absolute Auto 0.6 K/mm3 (0-0.3); Eosinophils Percent Auto 7.3 % (0-4.4); Hematocrit 33.1 % (37.0-47.0); Hemoglobin 10.5 g/dL (12.0-15.0); Immature Granulocyte Absolute 0.03 K/mm3 (0.00-0.031); Immature Granulocyte Percent A 0.4 % (0-0.5); Immature Platelet Fraction Pct 4.2 % (0.9-11.2); Lymphocytes Absolute Auto 1.39 K/mm3 (0.9-3.2); Lymphocytes Percent Auto 16.4 % (18.3-44.2); Mean Corpuscular HGB Conc 31.7 g/dl (32-36); Mean Corpuscular Hemoglobin 29.3 pg (26-34); Mean Corpuscular Volume 92.5 fl (80-100); Mean Platelet Volume 10.5 fl (7.4-10.4); Monocytes Absolute Auto 0.7 K/mm3 (0.1-0.6); Monocytes Percent Auto 8.4 % (2.6-8.5); Neutrophils Absolute Auto 5.7 K/mm3 (1.3-6.7); Neutrophils Percent Auto 66.8 % (45.5-73.1); Platelet Count Result 143 k/mm3 (150-375); Red Blood Count 3.58 M/mm3 (4.2-5.4); Red Cell Distribution Width 14.4 % (11.5-14.5); White Blood Count 8.5 K/mm3 (4.5-10.0)
[2023-01-22 07:21] LABS: Anion Gap 4 mmol/L (8-16); Blood Urea Nitrogen 26 mg/dL (7-17); Calcium 7.7 mg/dL (8.4-10.2); Carbon Dioxide 22 mmol/L (22-30); Chloride 107 mmol/L (98-107); Estimated CRCL calculation 25 ml/min; Estimated Glomerular Filt Rate 53; Glucose 100 mg/dL (65-110); Potassium 3.8 mmol/L (3.4-5.0); Sodium 133 mmol/L (137-145)
[2023-01-22 07:39] LABS: Glucose Point of Care 97 mg/dl (65-105)
[2023-01-22] MEDS: LOSARTAN POTASSIUM 100 MG TABLET PO (08:46)
[2023-01-22] MEDS: ASPIRIN 81 MG ENTERIC TABLET PO (08:46)
[2023-01-22] MEDS: hydrOXYzine HCL 10 MG TABLET PO (08:46)
[2023-01-22] MEDS: MULTIVITAMINS /C LUTEIN (CENTRUM SILVER) TABLET *BKC 1 TAB PO (08:46)
[2023-01-22] MEDS: CHOLECALCIFEROL 1,000 UNITS TABLET 1000 UNITS PO (08:46)
[2023-01-22] MEDS: ATORVASTATIN 10 MG TABLET PO (08:46)
[2023-01-22] MEDS: MIRTAZAPINE 15 MG TABLET PO (08:46)
[2023-01-22] MEDS: ONDANSETRON HCL ODT 4 MG TABLET PO (08:46)
[2023-01-22] MEDS: CEFEPIME 1 GM/NS 50 ML 1 GM/50 ML BAG IVPB ×2 (09:22→21:28)
--- NOTE | 2023-01-22 10:57 | PM.IMPN ---
Progress Note: A&P Assessment and Plan (1) Acute UTI: Code(s): N39.0 - Urinary tract infection, site not specified Status: Acute Assessment and Plan: Started on Rocephin cx in progress continue to monitor (2) Generalized weakness: Code(s): R53.1 - Weakness Status: Acute Assessment and Plan: Likely secondary to acute illness PT/OT ordered (3) Diabetes mellitus: Code(s): E11.9 - Type 2 diabetes mellitus without complications Status: Acute Assessment and Plan: Continue to monitor Accuchecks ACHS On insulin (4) Partial traumatic amputation of left foot: Code(s): S98.922A - Partial traumatic amputation of left foot, level unspecified, initial encounter Status: Acute Assessment and Plan: Fall precautions (5) GURPREET (acute kidney injury): Code(s): N17.9 - Acute kidney failure, unspecified Status: Acute Assessment and Plan: Improving. Continue IV fluids for 1 more day Likely to be pre renal azotemia continue to monitor Subjective Date/time seen: 01/22/23 10:57 Interval history: No change Review of Systems Review of Systems: ROS unobtainable: Yes unobtainable due to mental status (confusion, delirium.) Exam Const: General: comfortable, no acute distress, well developed, ill appearing, lethargic, patient obtunded, tired appearing and thin Nutritional Appearance: average body habitus Orientation/consciousness: patient oriented x3 HENMT: Head: normal to inspection, normocephalic and atraumatic Ears: hearing grossly normal bilaterally Face/Nose/Sinus: normal facial exam Face and sinus: normal facial exam Eyes: General: appearance normal, both eyes and all related structures Pupils: Equal, round and reactive pupils present EOM: EOMs intact bilaterally Neck: Neck: full ROM, no lymphadenopathy and no JVD Thyroid: thyroid normal Lymphatic: no lymphadenopathy noted Resp: Effort & Inspection: normal respiratory effort and able to speak in complete sentences Auscultation: clear to auscultation bilaterally Cardio: Jugular venous distension: no JVD Rate: regular rate Rhythm: regular rhythm Heart sounds: S1 normal heart sound present and S2 normal heart sound present GI: GI Palp: Yes Soft to palpation and Yes No hepatosplenomegaly present : General: Yes deferred Skin: Rashes: no rashes Wounds: no wounds Neuro: General: oriented to person and CN's II-XI intact bilaterally Cranial nerves: Yes CN's II-XII intact bilaterally and Yes Equal, round and reactive pupils present Cognition (Neuro): abnormal cognition (confusion, delirium) Speech: normal speech Motor exam (neuro): 5/5 motor strength present throughout Extrem: Right lower extremity: foot (amputation of toe) Left lower extremity: foot Details: other (amputation) Objective Data Vital Signs Vital Signs: Vital Signs - 24 hr 01/21/23 14:00 01/21/23 21:01 01/22/23 06:00 Temperature 96.7 F L 97.7 F 97.1 F L Pulse Rate 79 71 88 Respiratory Rate 18 16 14 Blood Pressure 159/73 H 118/54 L 104/95 H Pulse Oximetry 96 99 97 Intake/Output Intake/Output: Intake & Output 01/19/23 01/20/23 01/21/23 01/22/23 23:59 23:59 23:59 23:59 Intake Total 860 / 860 250 / 250 Output Total 500 / 500 200 / 200 Balance 360 / 360 50 / 50 Meds/Results Medications: Active Medications Generic Name Dose Route Start Last Admin Trade Name Freq PRN Reason Stop Dose Admin Albuterol 2 puff 01/21/23 08:46 Albuterol Sulfate (*Sp) Aerosol 1 Puff INHALATION Q12HRT PRN Shortness Of Breath Aspirin 81 mg 01/21/23 09:00 01/22/23 08:46 Aspirin 81 Mg Enteric Tablet PO 81 mg DAILY GENOVEVA Administration Atorvastatin Calcium 10 mg 01/21/23 09:00 01/22/23 08:46 Atorvastatin 10 Mg Tablet PO 10 mg DAILY GENOVEVA Administration Dextrose 12.5 gm 01/21/23 04:36 Dextrose 50% 25 Gm/50 Ml Syringe IV PUSH PRN PRN Hypoglycemia
[2023-01-22 11:26] LABS: Glucose Point of Care 85 mg/dl (65-105)
--- NOTE | 2023-01-22 11:53 | PCCCNOTE ---
Addendum entered by Mireya Nelson RN 01/22/23 12:00: Return phone call received from Octavia, she has reviewed and the is showing correct in the system. Original Note: PASSR completed, incorrect entered by this youth care specialist, entered today's date. PASSR showing that patient will need a legal guardian to sign. Called to [employer] hotline enrique Zaragoza. Mial changed the in the profile but states that this youth care specialist will need to contact the [facility] Octavia Thacker at [phone]. Called and left vmm regarding the noted above. Reviewed Outcomes and patient has corrected in profile and is showing NO Level II required and is no longer showing the banner notification about guardian.
--- NOTE | 2023-01-22 13:29 | PCPTNOTE ---
On 01/22/23, the student, [Evelyn Melendez], provided care and completed [facility] documentation on this patient. I have reviewed the student's documentation and agree with the findings.
[2023-01-22 13:46] VITALS: BP 115/71; PULSE 86; RESP 16; TEMP 35.5; O2SAT 99
[2023-01-22 16:23] LABS: Glucose Point of Care 130 mg/dl (65-105)
[2023-01-22 20:58] VITALS: BP 135/72; PULSE 82; RESP 20; TEMP 36.5; O2SAT 100
[2023-01-22 22:07] LABS: Glucose Point of Care 220 mg/dl (65-105)
[2023-01-22] MEDS: INSULIN GLARGINE (*BKC) 100 UNITS/ML 10 UNITS SUB-Q (22:56)
[2023-01-23] MEDS: LEVOTHYROXINE SODIUM 75 MCG TABLET PO (05:40)
--- NOTE | 2023-01-23 05:57 | PC.NURSE ---
Notified Dr. Cabello of pt's high blood pressure. Orders given to give 0900 Losartan now.
[2023-01-23] MEDS: LOSARTAN POTASSIUM 100 MG TABLET PO (05:58)
[2023-01-23 06:00] VITALS: BP 185/86; PULSE 63; RESP 20; TEMP 35.9; O2SAT 100
[2023-01-23 07:36] LABS: Glucose Point of Care 114 mg/dl (65-105)
[2023-01-23] MEDS: CEFEPIME 1 GM/NS 50 ML 1 GM/50 ML BAG IVPB (08:17)
[2023-01-23 08:20] VITALS: O2SAT 99
[2023-01-23] MEDS: SODIUM CHLORIDE 0.9% IV 1,000 ML 50 ML IV CONT (08:23)
[2023-01-23] MEDS: hydrOXYzine HCL 10 MG TABLET PO (08:24)
[2023-01-23] MEDS: ATORVASTATIN 10 MG TABLET PO (08:24)
[2023-01-23] MEDS: ONDANSETRON HCL ODT 4 MG TABLET PO (08:24)
[2023-01-23] MEDS: CHOLECALCIFEROL 1,000 UNITS TABLET 1000 UNITS PO (08:24)
[2023-01-23] MEDS: ASPIRIN 81 MG ENTERIC TABLET PO (08:24)
[2023-01-23] MEDS: MULTIVITAMINS /C LUTEIN (CENTRUM SILVER) TABLET *BKC 1 TAB PO (08:24)
[2023-01-23] MEDS: MIRTAZAPINE 15 MG TABLET PO (08:24)
[2023-01-23] MEDS: amLODIPine BESYLATE 5 MG TABLET 10 MG PO (10:47)
[2023-01-23 11:37] LABS: Glucose Point of Care 222 mg/dl (65-105)
--- NOTE | 2023-01-23 11:50 | PCNFU ---
Nutrition Follow-Up Complete: Inadequate energy intake related to appetite and ability to feed self as evidenced by nursing report, low BMI, and observation of pt during meal time. Goal:PO intake greater than 50% of meals and supplements Pt is progressing towards goal, continue with same goal. Pt current nutrition is Diabetic soft and bite sized, Ensure pudding BID, Ensure compact BID. Nutrition recommendation: continue with current plan of care Last recorded weight is 41.8 kg. Bowel Motility: +BM 01/22 Labs Reviewed: Hgb:10.5, HCT:33.1, NA:133, BUN:26 Meds Noted: novolog, lantus, remeron Skin: no skin issues noted Additional Notes: Nursing reports pt doing better with meals, ate well for breakfast and was able to feed self. Ate Ensure pudding. Intake 25-50% of meals at this time. Continue to assist and encourage as needed. Monitor intake, wt, labs. Follow up in 7 days.
[2023-01-23] MEDS: INSULIN ASPART (*BKC) 100 UNITS/ML SUB-Q (11:58)
--- NOTE | 2023-01-23 12:12 | PM.DS ---
DS: Admitting Diagnosis Discharge Date 01/23/2023 Admitting Diagnosis UTI DS: Discharge Diagnosis Discharge Diagnosis (1) Acute UTI: Code(s): N39.0 - Urinary tract infection, site not specified Status: Acute (2) Generalized weakness: Code(s): R53.1 - Weakness Status: Acute DS: Summary Hospital Course Hospital Course: This is an 82 yo female with PMHx significant for T2DM, L transmetatarsal amputation, COPD, HTN, was brought to ED for evaluation due to AMS, generalized weakness, according to family. Patient is confused can not give any meaningful hx denies any pain, fevers, rigors, chills, n/v/abdominal pain/diarrhea, cough, sputum production, or pain or burning with urination. Preliminary work up was significant for ua with numerous wbc's present, BMP was significant for Cr of 1.[address] of abd/pel :Interval development of pancreatic ductal dilatation from the level of the pancreatic neck through the pancreatic tail. No clearly delineated obstructing mass evident on this exam, but underlying mass lesion must be suspected given the abrupt transition dilatation. Consider small IPMN or other neoplasm. Follow-up pre and postcontrast MR/MRCP advised. Urinary bladder wall thickening suggests cystitis. Correlate clinically. 4.2 cm infrarenal abdominal aortic aneurysm. Cholelithiasis.. patient was started on IV Rocephin. She responded well to the IV antibiotics. Blood pressure was still elevated so amlodipine was added to her blood pressure medications. At this time she is clinically stable. Her home living conditions are not very well so patient is being discharged to rehab. Recommend outpatient follow-up with PCP regarding the CT abdomen findings which are non urgent. Time Spent with Patient Time attestation: Total time spent providing and/or coordinating discharge services: DS: Data Data Completed and Pending Labs on day of discharge: Labs from last 24 hours 01/23/23 01/23/23 01/22/23 11:32 07:34 20:34 POC Capillary Glucose 222 H 114 H 220 H 01/22/23 16:18 POC Capillary Glucose 130 H Preliminary micro results at discharge 01/21/23 02:58 Blood Culture - Preliminary Blood 01/21/23 02:58 Blood Culture - Preliminary Blood Discharge Plan Discharge Discharging Clinician: Vidal Lim Anticipated Discharge Date/Time: 01/23/23 12:10 Patient Disposition: SNF Activity: no preference Diet: heart healthy Patient Instructions: Heart Failure (DC) Stand Alone Forms: General Discharge Information Follow-up/Referrals: Luisana,Pramod Koroma MD [Primary Care Provider] - Discharge Medications: New amlodipine [Norvasc] 5 mg Tablet 10 mg PO QAM Qty: 30 0RF nitrofurantoin monohyd/m-cryst [Macrobid] 100 mg capsule 100 mg PO Q12H 3 Days Qty: 6 0RF Rx Instructions: must administer with a meal/food Continued albuterol sulfate 90 mcg/actuation HFA aerosol inhaler 2 inh INHALATION BID PRN (Reason: Shortness Of Breath) losartan 50 mg tablet 100 mg PO DAILY atorvastatin 10 mg tablet 10 mg PO DAILY ondansetron HCl 4 mg tablet 4 mg PO DAILY aspirin [Aspir-81] 81 mg Tablet,Delayed Release (Dr/Ec) 81 mg PO DAILY levothyroxine 75 mcg tablet 75 mcg PO DAILY mirtazapine 15 mg tablet 15 mg PO DAILY hydroxyzine HCl 10 mg tablet 10 mg PO DAILY cholecalciferol (vitamin D3) [Vitamin D3] 25 mcg (1,000 unit) Capsule 25 mcg PO DAILY insulin glargine [Lantus Solostar U-100 Insulin] 100 unit/mL (3 mL) insulin pen 15 unit SUBCUT HS Adults Multivitamin 18 mg iron-400 mcg-25 mcg Tablet 1 tablet PO DAILY Zyrtec 10 mg capsule 10 mg PO DAILY PRN (Reason: allergy symptoms) Qty: 30 0RF Date of admission: 01/21/23 04:36 Primary Care Provider: Doreen,Pramod Koroma Admitting Provider: Corrie Mckeon V. Attending physician on admission: Vidal Lim
[2023-01-23 14:00] VITALS: BP 121/57; PULSE 80; RESP 12; TEMP 36.3; O2SAT 94
[2023-01-23 16:29] LABS: Glucose Point of Care 92 mg/dl (65-105)
[2023-01-23 19:33] LABS: Glucose Point of Care 100 mg/dl (65-105)
[2023-01-23 21:10] VITALS: BP 114/46; PULSE 68; RESP 16; TEMP 37.1; O2SAT 99
[2023-01-23 21:29] LABS: Glucose Point of Care 92 mg/dl (65-105)
== END 2023-01-23 21:22 ==
LOC: ANHED 01-21 04:43 → ANH3MEDSUR 01-21 05:12
PROVIDERS: Chiropractor; Admitting Provider Internal Medicine; Emergency Provider Preventive Medicine Aerospace Medicine; PCP Internal Medicine; Visit Provider Hospitalist
DX: N39.0 Urinary tract infection, site not specified (principal); R53.1 Weakness; J44.9 Chronic obstructive pulmonary disease, unspecified; E11.9 Type 2 diabetes mellitus without complications; F03.90 Unspecified dementia, unspecified severity, without behavioral disturbance, psychotic disturbance, mood disturbance, and anxiety; R03.1 Nonspecific low blood-pressure reading; I10 Essential (primary) hypertension; E03.9 Hypothyroidism, unspecified; D69.6 Thrombocytopenia, unspecified; I71.40 Abdominal aortic aneurysm, without rupture, unspecified; K80.20 Calculus of gallbladder without cholecystitis without obstruction; N17.9 Acute kidney failure, unspecified; R79.89 Other specified abnormal findings of blood chemistry; D72.829 Elevated white blood cell count, unspecified; Z89.432 Acquired absence of left foot; Z89.431 Acquired absence of right foot; Z87.891 Personal history of nicotine dependence; Z79.51 Long term (current) use of inhaled steroids; Z79.4 Long term (current) use of insulin; Z79.899 Other long term (current) drug therapy
CPT/HCPCS: 36415; 36556; 71045; 74177; 80048; 80053; 81001; 82948; 83605; 84484; 85025; 85055; 87040; 87086; 93005; 96365; 96366; 97161; 97165; 99285; A9270; C1751; G0378; J0692; J1815; J7030; Q9967

== ENCOUNTER 2023-08-13 22:27 | Inpatient (IN) | payer MEDICARE, MEDICAID, SELFPAY ==
--- NOTE | ~2023-08-13 | XR_ITS ---
Portable chest x-ray Comparison: 08/13/2023 Clinical History: Pneumonia Findings: Lungs are clear, without focal consolidation or pleural effusion. Possible COPD. Cardiome diastinal silhouette is stable. Bones and soft tissues are unremarkable. Impression: Clear lungs. Possible COPD. Reviewed, dictated and finalized at [facility]. IAL SYSTEMS TECHNICIAN Impression: Clear lungs. Possible COPD.
--- NOTE | ~2023-08-13 | CT_ITS ---
EXAMINATION: CT abdomen pelvis wo con DATE: 08/21/2023 08:51 INDICATION: Diverticulitis. TECHNIQUE: Computed tomography (CT) of the abdomen and pelvis was performed without intravenous contr ast. Automated exposure control and iterative reconstruction technique were employed. The dose-length product was 228.40 mGy-cm. COMPARISON: CT abdomen and pelvis 08/18/2023, 03/28/22 FINDINGS: There is a small loculated left pleural effusion. There is bronchiectasis bilaterally. The heart size is normal. There are coronary artery calcifications. No pericardial effusion. There is a 1 0 mm cyst in the liver. There are gallstones in the gallbladder, which is normal in size. There is ca lcified atherosclerosis of the aorta and many of the other arteries. Calcifications in the spleen are consistent with old granulomatous disease. The pancreas and adrenal glands are normal. There are cys ts in the kidneys measuring up to 2.1 cm on the left. There is mild left hydronephrosis and hydrouret er. There is a 4.3 cm fusiform aneurysm of infrarenal aorta. There is a small volume of ascites. Ther e is a right inguinal hernia containing ascites. There are scattered diverticula in the colon. There is fat stranding around a diverticulum of the sigmoid colon with foci of free intraperitoneal gas lourdes r this area, consistent with diverticulitis. There is edema of the body wall and intra-abdominal fat. Pelvic floor dysfunction is noted. There is mild lumbar spondylosis. IMPRESSION: 1. Sigmoid diverticulitis with microperforation. 2. Small volume of ascites, worsened from 08/18/2023. 3. Small loculated left pleural effusion, new from 08/18/2023. 4. 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 5. Persistent mild left hydronephrosis and hydroureter. Reviewed, dictated and finalized at location E. ING AID ASSEMBLY SUPERVISOR
--- NOTE | ~2023-08-13 | XR_ITS ---
EXAMINATION: XR chest 1V portable Exam Date/Time: 08/13/2023 22:37 SUPERVISOR COOPERAGE SHOP HISTORY: weakness Comparison: 01/21/2023. RESULT: Lines, tubes, and devices: None. Lungs and pleura: Senescent/emphysematous change, otherwise clear. Cardiomediastinal silhouette: Stable. Other: No acute osseous or upper abdominal finding. IMPRESSION: No acute cardiopulmonary process. 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 RVISOR COOPERAGE SHOP
--- NOTE | ~2023-08-13 | XR_ITS ---
EXAMINATION: XR knee RT 3V DATE: 08/14/2023 10:57 INDICATION: Acute right knee pain. TECHNIQUE: 3 views of right knee were obtained. COMPARISON: None. FINDINGS: Bone alignment is normal. No fracture. There is mild tricompartmental osteoarthritis. No kn ee joint effusion. IMPRESSION: 1. Mild right knee osteoarthritis. Reviewed, dictated and finalized at location A. CAID BUSINESS ANALYST
--- NOTE | ~2023-08-13 | XR_ITS ---
Portable chest x-ray Comparison: 08/18/2023 Clinical History: Pleural effusion Findings: Lungs are clear, without focal consolidation or pleural effusion. Suspected COPD. Cardiom ediastinal silhouette is stable. Bones and soft tissues are unremarkable. Impression: Clear lungs. Suspected COPD. Reviewed, dictated and finalized at location . LFISH SORTER Impression: Clear lungs. Suspected COPD.
--- NOTE | ~2023-08-13 | CT_ITS ---
EXAMINATION: CT abdomen pelvis wo con DATE: 08/18/2023 11:09 INDICATION: Abdominal pain and anemia. TECHNIQUE: Computed tomography (CT) of the abdomen and pelvis was performed with 100 mL Omnipaque-350 intravenous contrast. Automated exposure control and iterative reconstruction technique were employe d. The dose-length product was 388.27 mGy-cm. COMPARISON: 01/21/2023 FINDINGS: Mild discoid atelectasis/scarring at the lingula. Heart size is normal. No pericardial or pleural eff usion. Small sliding-type hiatal hernia. There is a small amount of free intraperineal gas seen bilat erally in the nondependent upper abdomen. Spurs arise from a perforated sigmoid diverticulitis with i nflammatory stranding and small amount of additional extraluminal gas in the adjacent sigmoid mesente ry. No bowel obstruction. Normal appendix. Again seen is a subcapsular low-attenuation cyst cyst at t he right hepatic lobe. A few small calcified gallstones in the dependent aspect of the normal gallbla dder. No intra or extrahepatic biliary ductal dilation. Small calcified granulomata in the spleen and one in the liver. Again seen is dilation of the main pancreatic duct at the body the pancreas likely sequela of chronic pancreatitis. Bilateral adrenal glands are normal. Again seen is mild bilateral r enal atrophy with a few bilateral small low-attenuation renal cysts the largest on the left measuring 2.0 cm in maximal diameter. There is mild left hydroureteronephrosis extending the length of the ure ter to the ureterovesicular junction. No evident obstructing stones or masses identified. There are s ome wall thickening at the bladder and mild stranding to the surrounding fat suspicious for cystitis. Small amount of free fluid in the pelvis. No abscess. There is calcified atherosclerosis of the aort a and many of the other arteries. Fusiform infrarenal abdominal aortic aneurysm measuring up to 4.2 x 4.0 cm in maximal diameter. No pathologically enlarged abdominal or pelvic lymphadenopathy. Small a mount of fat and ascites extending into a small right femoral hernia. Mild lumbar and lower thoracic spondylosis with moderate to severe lower facet osteoarthritis with lower lumbar predominant. IMPRESSION: 1. Perforated sigmoid diverticulitis with free intraperineal gas but without evident abscess. Finding s were discussed with Miryam Quinones, the nurse caring for the patient, at 12:45 PM. 2. Persistent dilation of the main pancreatic duct likely sequela of chronic pancreatitis. 3. Cholelithiasis. 4. Mild left hydroureteronephrosis without evident obstructing stone or mass. 5. Mild bladder wall thickening and some from trace stranding in the surrounding fat suspicious for c ystitis. 6. Small amount of ascites in the pelvis including within a small otherwise fat-containing right femo ral hernia. 7. 4.2 cm fusiform infrarenal abdominal aortic aneurysm. Reviewed, dictated and finalized at location A. CUTTING MACHINE OPERATOR IMPRESSION: 1. Perforated sigmoid diverticulitis with free intraperineal gas but without ev ident abscess. Findings were discussed with Miryam Quinones, the nurse caring for the patient, at 12:45 PM. 2. Persistent dilation of the main pancreatic duct likely sequela of chronic pa ncreatitis. 3. Cholelithiasis. 4. Mild left hydroureteronephrosis without evident obstructing stone or mass. 5. Mild bladder wall thickening and some from trace stranding in the surroundin g fat suspicious for cystitis. 6. Small amount of ascites in the pelvis including within a small otherwise fat -containing right femoral hernia. 7. 4.2 cm fusiform infrarenal abdominal aortic aneurysm.
--- NOTE | ~2023-08-13 | CT_ITS ---
EXAMINATION: CT brain wo con DATE: 08/13/2023 22:53 INDICATION: altered mental status . TECHNIQUE: Computed tomography (CT) of the head was performed without intravenous contrast. The mA wa s adjusted according to patient size. Iterative reconstruction technique was employed. The dose-lengt h product was 605.33 mGy-cm. COMPARISON: None. FINDINGS: No acute intracranial hemorrhage or extra-axial fluid collection. No hydrocephalus, mass, or herniation. No acute ischemic infarct. Unremarkable dural venous sinus attenuation. No acute osseous abnormality. The aerated spaces are clear. Moderate atrophy and chronic white matter change. Atherosclerotic intracranial calcification. Bilater al lens replacements. 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 Focal area of left frontal encephalomalacia . Right caudate head and left thalamic lacunar infarcts. 1.7 cm partially calcified soft tissue nodul e over the right frontal scalp. IMPRESSION: No acute intracranial process. 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 OPERATIONS DIRECTOR
--- NOTE | ~2023-08-13 | US_ITS ---
EXAMINATION: US venous doppler [facility] DATE: 08/24/2023 16:09 INDICATION: rule out DVT . TECHNIQUE: Grayscale images without and with compression and Doppler images of the bilateral lower ex tremity veins were obtained. COMPARISON: None FINDINGS: The right common femoral vein, profunda (deep) femoral vein, femoral vein, popliteal vein, peroneal v ein, posterior tibial veins, and greater saphenous vein are patent. The left common femoral vein, profunda (deep) femoral vein, femoral vein, popliteal vein, peroneal v ein, posterior tibial veins, and greater saphenous vein are patent. IMPRESSION: Patent bilateral lower extremity veins. No evidence of deep venous thrombosis. 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 SORTER
[2023-08-13 22:31] VITALS: BP 118/44; PULSE 74; RESP 16; TEMP 36.8; O2SAT 95
--- NOTE | 2023-08-13 22:33 | ECG_ITS ---
Measurements Intervals [place] Rate: 67 P: 76 MA: 166 QRS: 61 QRSD: 93 T: 90 QT: 390 QTc: 413 Interpretive Statements SINUS RHYTHM CANNOT RULE OUT SEPTAL INFARCT, AGE INDETERMINATE BORDERLINE ST-T WAVE ABNORMALITY- DIFFUSE LEADS BASELINE ARTIFACT- I, II ABNORMAL ECG COMPARED TO ECG 01/21/2023 00:13:16 NO SIGNIFICANT CHANGES Electronically Signed On 08-14-2023 6:39:29 PEBBLE MILL OPERATOR by David Villasenor D.O.
[2023-08-14] VITALS (29 sets, daily range): BP systolic 100–121; BP diastolic 41–54; PULSE 58–82; RESP 12–18; TEMP 36.4–36.6; O2SAT 94–100; BMI 18.6
[2023-08-14 00:36] LABS: Basophils Percent Auto 0.3 % (0.2-1.2); Eosinophils Absolute Auto 0.1 K/mm3 (0-0.3); Eosinophils Percent Auto 0.4 % (0-4.4); Hematocrit 29.4 % (37.0-47.0); Hemoglobin 9.3 g/dL (12.0-15.0); Immature Granulocyte Absolute 0.08 K/mm3 (0.00-0.031); Immature Granulocyte Percent A 0.6 % (0-0.5); Lymphocytes Absolute Auto 1.84 K/mm3 (0.9-3.2); Lymphocytes Percent Auto 13.8 % (18.3-44.2); Mean Corpuscular HGB Conc 31.6 g/dl (32-36); Mean Corpuscular Hemoglobin 28.2 pg (26-34); Mean Corpuscular Volume 89.1 fl (80-100); Mean Platelet Volume 10.1 fl (7.4-10.4); Monocytes Absolute Auto 1.2 K/mm3 (0.1-0.6); Monocytes Percent Auto 8.9 % (2.6-8.5); Neutrophils Absolute Auto 10.1 K/mm3 (1.3-6.7); Platelet Count Result 246 k/mm3 (150-375); White Blood Count 13.3 K/mm3 (4.5-10.0)
[2023-08-14 00:46] LABS: INR 2.8; Prothrombin Time 31.6 Seconds (11.1-14.7)
[2023-08-14 00:47] LABS: Lactic Acid Reflex 0.5 mmol/L (0.7-2.0); Partial Thromboplastin Time 55.8 SECONDS (22.3-36.8)
[2023-08-14 00:50] LABS: Alanine Aminotransferase 11 U/L (6-35); Albumin Level 2.8 g/dL (3.5-5.1); Alkaline Phosphatase 66 U/L (38-126); Anion Gap 7 mmol/L (8-16); Aspartate Amino Transferase 21 U/L (14-36); Bilirubin,Total 0.8 mg/dL (0.2-1.3); Blood Urea Nitrogen 39 mg/dL (7-17); Carbon Dioxide 30 mmol/L (22-30); Chloride 99 mmol/L (98-107); Estimated CRCL calculation 19 ml/min; Estimated Glomerular Filt Rate 36; Glucose 107 mg/dL (65-110); Magnesium 1.8 mg/dL (1.6-2.3); Potassium 2.7 mmol/L (3.4-5.0); Sodium 136 mmol/L (137-145)
[2023-08-14 00:58] LABS: Troponin I < 0.012 ng/mL (0.000-0.034)
[2023-08-14 01:10] LABS: Procalcitonin 0.2 ng/mL
[2023-08-14 01:15] LABS: Influenza A QL RT-PCR Negative (Negative); Influenza B QL RT-PCR Negative (Negative); RSV RNA, RT-PCR Negative (Negative); SARS-CoV-2 RNA PCR Negative (Negative)
[2023-08-14 02:10] LABS: Appearance Urine Turbid (Clear); Bacteria Urine 4+ /hpf; Bilirubin Urine Negative (Negative); Blood Urine 3+ (Negative); Color Urine Yellow (Yellow); Glucose Urine UA Negative (Negative); Hyaline Casts Urine Present /lpf; Ketones Urine Negative (Negative); Leukocyte Esterase Ur 3+ LEU/UL (Negative); Need Manual Microscopic Reviewed; Nitrate Urine Negative (Negative); Non Pathogenic Casts >20; Protein Urine 2+ mg/dL (Negative); RBC Urine 21-50 /hpf (0-2); Specific Grav Ur 1.011 (1.001-1.035); Squamous Epithelial Cell Urine Few /hpf (Few); WBC Urine >100 /hpf; pH Urine 6.5 (5.0-9.0)
[2023-08-14] MEDS: SODIUM CHLORIDE 0.9% IV 1,000 ML 999 ML IV CONT (02:10)
[2023-08-14 02:12] LABS: Add Urine Microscopic? YES
[2023-08-14 02:29] LABS: Troponin I < 0.012 ng/mL (0.000-0.034)
--- NOTE | 2023-08-14 03:25 | ED.GENADULT ---
HPI - General Adult General Chief complaint: Altered Mental Status Stated complaint: altered mental status Time Seen by Provider: 08/13/23 22:27 History of Present Illness HPI narrative: Patient is a 83-year-old female who presents emergency department with chief complaint of generalized weakness patient is a resident of local nursing facility and was found to be decreased responsive today. The patient is normally responsive verbal and is normally a and O times 1-2 today patient was only a and O x1 an extremely drowsy. Related Data Home Medications Medication Instructions Recorded Confirmed albuterol sulfate 90 mcg/actuation 2 inh inhalation BID PRN Shortness 02/03/20 01/30/23 aerosol inhaler Of Breath aspirin 81 mg tablet,delayed 81 mg PO DAILY 01/21/23 01/30/23 release atorvastatin 10 mg tablet 10 mg PO DAILY 01/21/23 01/30/23 cholecalciferol (vitamin D3) 25 25 mcg PO DAILY 01/21/23 01/30/23 mcg (1,000 unit) capsule (Vitamin D3) hydroxyzine HCl 10 mg tablet 10 mg PO DAILY 01/21/23 01/30/23 insulin glargine 100 unit/mL (3 15 unit subcut HS 01/21/23 01/30/23 mL) subcutaneous pen (Lantus Solostar U-100 Insulin) levothyroxine 75 mcg tablet 75 mcg PO DAILY 01/21/23 01/30/23 losartan 50 mg tablet 100 mg PO DAILY 01/21/23 01/30/23 mirtazapine 15 mg tablet 15 mg PO DAILY 01/21/23 01/30/23 multivit with minerals-iron 18 1 tablet PO DAILY 01/21/23 01/30/23 mg-folic ac 400 mcg-vit K 25 mcg tablet (Adults Multivitamin) ondansetron HCl 4 mg tablet 4 mg PO DAILY 01/21/23 01/30/23 Allergies Allergy/AdvReac Type Severity Reaction Status Date / Time codeine Allergy Rash Verified 01/21/23 10:56 vancomycin Allergy Difficulty Verified 01/21/23 10:56 Breathing Review of Systems Review of Systems: A 10 system review of systems was completed on the patient and is negative except for what is stated in the HPI. Nursing and ancillary documentation was reviewed. 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 Needed amputation to all 5 toes Family History Family History Sibling Diabetes mellitus Social History Social History Smoking packs per day: 1 Smoking cigarettes per day: 20.0 Years smoked: 50 Smoking pack-years: 50.00 Smoking status: Former smoker Tobacco type: cigarettes Alcohol intake: never Substance use: never Additional living arrangements comments: Currently living at [facility] due to recent toe amputation and needing therapy Occupation/Education: retired Gender identity (if verbalized by the patient): Female Sexual Orientation (if Verbalized by the Patient): Straight or Heterosexual Spiritual care concerns: No Exam Narrative: GENERAL: Ill-appearing, thin, and in no acute distress. HEAD: Normocephalic, atraumatic. EYES: PERRLA and EOMI. ENT: Nares clear, no rhinorrhea or epistaxis. Mucous membranes moist. NECK: Supple. CHEST: Clear to auscultation. No respiratory distress. HEART: Regular rate and rhythm. No murmur heard. Normal peripheral pulses. ABDOMEN: Soft, nontender, nondistended, normal active bowel sounds. EXTREMITIES: Normal range of motion. No edema. SKIN: Warm, dry, no rash. NEURO: No focal deficits. Alert and oriented x1. PSYCH: Normal mood and affect. Course Vital Signs Vital signs: Vital Signs Temperature 36.8 C 08/13/23 22:31 Pulse Rate 74 08/13/23 22:31 Respiratory Rat
[2023-08-14] MEDS: KCL 20 MEQ/SW 100 ML 100 ML 50 MEQ IVPB ×2 (03:37→05:21)
[2023-08-14] MEDS: SODIUM CHLORIDE 0.9% IV 1,000 ML 125 ML IV CONT ×2 (05:21→20:00)
--- NOTE | 2023-08-14 05:39 | PC.NURSE ---
Pt admitted for UTI, low potassium levels. Pt is a&o x0-1 and very lethargic. Pt currently receiving fluids and IV potassium. Pt is resting comfortably in bed. Pt arrived from [facility]. Pt's call light within reach, night light on in the room, pt close to the nurse's station for better monitoring. Pt sleeping/resting. Skin intact.
[2023-08-14 08:11] LABS: Glucose Point of Care 77 mg/dl (65-105)
[2023-08-14 08:22] LABS: Hematocrit 30.1 % (37.0-47.0); Hemoglobin 9.5 g/dL (12.0-15.0); Mean Corpuscular HGB Conc 31.6 g/dl (32-36); Mean Corpuscular Hemoglobin 28.4 pg (26-34); Mean Corpuscular Volume 89.9 fl (80-100); Platelet Count Result 230 k/mm3 (150-375); Red Blood Count 3.35 M/mm3 (4.2-5.4); Red Cell Distribution Width 14.2 % (11.5-14.5); White Blood Count 11.2 K/mm3 (4.5-10.0)
[2023-08-14 08:23] LABS: Basophils Absolute Auto 0.1 K/mm3 (0.0-0.1); Basophils Percent Auto 0.4 % (0.2-1.2); Eosinophils Absolute Auto 0.2 K/mm3 (0-0.3); Eosinophils Percent Auto 1.7 % (0-4.4); Hematocrit 29.6 % (37.0-47.0); Hemoglobin 9.1 g/dL (12.0-15.0); Immature Granulocyte Absolute 0.05 K/mm3 (0.00-0.031); Immature Granulocyte Percent A 0.4 % (0-0.5); Lymphocytes Absolute Auto 1.51 K/mm3 (0.9-3.2); Lymphocytes Percent Auto 13.5 % (18.3-44.2); Mean Corpuscular HGB Conc 30.7 g/dl (32-36); Mean Corpuscular Volume 91.1 fl (80-100); Mean Platelet Volume 9.8 fl (7.4-10.4); Monocytes Absolute Auto 0.9 K/mm3 (0.1-0.6); Monocytes Percent Auto 8.3 % (2.6-8.5); Neutrophils Absolute Auto 8.4 K/mm3 (1.3-6.7); Neutrophils Percent Auto 75.7 % (45.5-73.1); Platelet Count Result 235 k/mm3 (150-375); Red Blood Count 3.25 M/mm3 (4.2-5.4); Red Cell Distribution Width 14.2 % (11.5-14.5); White Blood Count 11.2 K/mm3 (4.5-10.0)
[2023-08-14] MEDS: CHOLECALCIFEROL 1,000 UNITS TABLET 1000 UNITS PO (08:29)
[2023-08-14] MEDS: MIRTAZAPINE 15 MG TABLET PO (08:29)
[2023-08-14] MEDS: ATORVASTATIN 10 MG TABLET PO (08:29)
[2023-08-14] MEDS: LOSARTAN POTASSIUM 50 MG TABLET 100 MG PO (08:29)
[2023-08-14] MEDS: PANTOPRAZOLE 40 MG TABLET PO (08:29)
[2023-08-14] MEDS: APIXABAN 5 MG TABLET PO ×2 (08:29→17:08)
[2023-08-14] MEDS: LEVOTHYROXINE SODIUM 75 MCG TABLET PO (08:30)
[2023-08-14] MEDS: hydrOXYzine HCL 10 MG TABLET PO (08:30)
[2023-08-14] MEDS: amLODIPine BESYLATE 5 MG TABLET 10 MG PO (08:30)
[2023-08-14 08:34] LABS: Alanine Aminotransferase 10 U/L (6-35); Albumin Level 2.7 g/dL (3.5-5.1); Alkaline Phosphatase 63 U/L (38-126); Anion Gap 6 mmol/L (8-16); Aspartate Amino Transferase 20 U/L (14-36); Bilirubin,Total 0.5 mg/dL (0.2-1.3); Blood Urea Nitrogen 34 mg/dL (7-17); Carbon Dioxide 28 mmol/L (22-30); Chloride 105 mmol/L (98-107); Estimated CRCL calculation 18 ml/min; Estimated Glomerular Filt Rate 36; Glucose 81 mg/dL (65-110); Potassium 3.8 mmol/L (3.4-5.0); Sodium 139 mmol/L (137-145)
--- NOTE | 2023-08-14 10:21 | PM.IMHP ---
H&P: HPI History of Present Illness Date/Time: 08/14/23 10:21 Chief Complaint: AMS Narrative: Patient is an 83-year-old presented [facility]. Per ER notes staff had reported patient was lethargic with altered mental status prior to arrival. Patient seen bedside alert and oriented and answering questions appropriately however still lethargic with main complaints of left knee pain. Patient does not recall any fall at the nursing patient is a poor historian above events leading up to her arrival to the emergency department. CT head was negative for any acute findings, CXR with no acute cardiopulmonary process, labs showing leukocytosis of 13 and urinary tract infection. Patient did have complaints of abdominal pain to palpation have not noted any urinary output and bladder scan was ordered. Patient denied any chest pain, SOB, Nausea, vomiting, changes bowels, fever, chills, or urinary complaints. Patient with GURPREET/CKD creatinine 1.4 likely secondary to patient's UTI and dehydration however patient creatinine was 1.4 on last admission could be close to baseline. 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 Needed amputation to all 5 toes Family History Family History Sibling Diabetes mellitus Social History Social History Smoking packs per day: 1 Smoking cigarettes per day: 20.0 Years smoked: 50 Smoking pack-years: 50.00 Smoking status: Former smoker Alcohol intake: never Substance use: never Additional living arrangements comments: Currently living at [facility] due to recent toe amputation and needing therapy Occupation/Education: retired Gender identity (if verbalized by the patient): Female Sexual Orientation (if Verbalized by the Patient): Straight or Heterosexual Spiritual care concerns: No Meds Home Medications and Allergies Home Medications Medication Instructions Recorded Confirmed Type albuterol sulfate 90 mcg/actuation 2 inh inhalation BID PRN Shortness 02/03/20 08/14/23 History aerosol inhaler Of Breath cetirizine 10 mg capsule (Zyrtec) 10 mg PO DAILY PRN allergy 03/28/22 08/14/23 Rx symptoms #30 caps aspirin 81 mg tablet,delayed 81 mg PO DAILY 01/21/23 08/14/23 History release atorvastatin 10 mg tablet 10 mg PO DAILY 01/21/23 08/14/23 History cholecalciferol (vitamin D3) 25 25 mcg PO DAILY 01/21/23 08/14/23 History mcg (1,000 unit) capsule (Vitamin D3) hydroxyzine HCl 10 mg tablet 10 mg PO DAILY 01/21/23 08/14/23 History insulin glargine 100 unit/mL (3 15 unit subcut HS 01/21/23 08/14/23 History mL) subcutaneous pen (Lantus Solostar U-100 Insulin) levothyroxine 75 mcg tablet 75 mcg PO DAILY 01/21/23 08/14/23 History losartan 50 mg tablet 100 mg PO DAILY 01/21/23 08/14/23 History mirtazapine 15 mg tablet 15 mg PO DAILY 01/21/23 08/14/23 History ondansetron HCl 4 mg tablet 4 mg PO DAILY 01/21/23 08/14/23 History amlodipine 5 mg tablet (Norvasc) 10 mg PO QAM #30 tabs 01/23/23 08/14/23 Rx apixaban 5 mg tablet (Eliquis) 5 mg PO BID 08/14/23 08/14/23 History benzocaine 20 %-menthol 0.1 %-zinc 1 ea mucous membrane TID PRN mouth 08/14/23 08/14/23 History chloride 0.15 % mucosal gel sores (Orajel 3X Mouth Sores) furosemide 20 mg tablet 20 mg PO DAILY
[2023-08-14 12:00] LABS: Glucose Point of Care 169 mg/dl (65-105)
[2023-08-14 17:06] LABS: Glucose Point of Care 226 mg/dl (65-105)
[2023-08-14] MEDS: INSULIN ASPART (*BKC) 100 UNITS/ML SUB-Q (17:09)
[2023-08-14] MEDS: INSULIN GLARGINE (*BKC) 100 UNITS/ML 15 UNITS SUB-Q (19:58)
[2023-08-14 20:20] LABS: Glucose Point of Care 175 mg/dl (65-105)
[2023-08-15] VITALS (9 sets, daily range): BP systolic 98–102; BP diastolic 44–48; PULSE 60–73; RESP 17–18; TEMP 36.8–37.6; O2SAT 94–95
[2023-08-15] MEDS: SODIUM CHLORIDE 0.9% IV 1,000 ML 125 ML IV CONT (05:26)
[2023-08-15] MEDS: LEVOTHYROXINE SODIUM 75 MCG TABLET PO (05:27)
[2023-08-15 06:17] LABS: Basophils Percent Auto 0.4 % (0.2-1.2); Eosinophils Absolute Auto 0.6 K/mm3 (0-0.3); Hematocrit 28.3 % (37.0-47.0); Hemoglobin 8.9 g/dL (12.0-15.0); Immature Granulocyte Absolute 0.03 K/mm3 (0.00-0.031); Immature Granulocyte Percent A 0.3 % (0-0.5); Lymphocytes Absolute Auto 1.56 K/mm3 (0.9-3.2); Lymphocytes Percent Auto 16.4 % (18.3-44.2); Mean Corpuscular HGB Conc 31.4 g/dl (32-36); Mean Corpuscular Hemoglobin 28.8 pg (26-34); Mean Corpuscular Volume 91.6 fl (80-100); Mean Platelet Volume 10.7 fl (7.4-10.4); Monocytes Absolute Auto 0.7 K/mm3 (0.1-0.6); Monocytes Percent Auto 7.8 % (2.6-8.5); Neutrophils Absolute Auto 6.6 K/mm3 (1.3-6.7); Neutrophils Percent Auto 69.1 % (45.5-73.1); Platelet Count Result 256 k/mm3 (150-375); Red Blood Count 3.09 M/mm3 (4.2-5.4); White Blood Count 9.5 K/mm3 (4.5-10.0)
[2023-08-15 06:28] LABS: Anion Gap 6 mmol/L (8-16); Blood Urea Nitrogen 24 mg/dL (7-17); Calcium 8.1 mg/dL (8.4-10.2); Carbon Dioxide 25 mmol/L (22-30); Chloride 110 mmol/L (98-107); Estimated CRCL calculation 25 ml/min; Estimated Glomerular Filt Rate 53; Glucose 65 mg/dL (65-110); Potassium 3.1 mmol/L (3.4-5.0); Sodium 141 mmol/L (137-145)
[2023-08-15 08:04] LABS: Glucose Point of Care 67 mg/dl (65-105)
[2023-08-15] MEDS: APIXABAN 5 MG TABLET PO ×2 (08:57→17:36)
[2023-08-15] MEDS: PANTOPRAZOLE 40 MG TABLET PO (08:57)
[2023-08-15] MEDS: MIRTAZAPINE 15 MG TABLET PO (08:57)
[2023-08-15] MEDS: ATORVASTATIN 10 MG TABLET PO (08:57)
[2023-08-15] MEDS: hydrOXYzine HCL 10 MG TABLET PO (08:57)
[2023-08-15] MEDS: CHOLECALCIFEROL 1,000 UNITS TABLET 1000 UNITS PO (08:57)
[2023-08-15] MEDS: amLODIPine BESYLATE 5 MG TABLET 10 MG PO (08:57)
[2023-08-15] MEDS: LOSARTAN POTASSIUM 50 MG TABLET 100 MG PO (08:57)
[2023-08-15] MEDS: GLUCOSE ORAL GEL 15 GM OF GLUCSE IN 37.5 GM TUBE PO (12:17)
[2023-08-15 12:18] LABS: Glucose Point of Care 59 mg/dl (65-105)
[2023-08-15] MEDS: POTASSIUM CHLORIDE INJ 40 MEQ in SODIUM CHLORIDE 0.9% IV 500 ML 130 MEQ IVPB (12:26)
--- NOTE | 2023-08-15 12:26 | PM.IMPN ---
Progress Note: A&P Assessment and Plan (1) Altered mental status: Qualifiers: Altered mental status type: disorientation Qualified Code(s): R41.0 - Disorientation, unspecified Code(s): R41.82 - Altered mental status, unspecified Status: Acute (2) Acute hypokalemia: Code(s): E87.6 - Hypokalemia Status: Acute (3) GURPREET (acute kidney injury): Code(s): N17.9 - Acute kidney failure, unspecified Status: Acute (4) Generalized weakness: Code(s): R53.1 - Weakness Status: Acute (5) Acute UTI: Code(s): N39.0 - Urinary tract infection, site not specified Status: Acute (6) Abdominal pain: Qualifiers: Abdominal location: generalized Qualified Code(s): R10.84 - Generalized abdominal pain Code(s): R10.9 - Unspecified abdominal pain Status: Acute (7) Diabetes mellitus: Qualifiers: Diabetes mellitus type: type 2 Diabetes mellitus usp insulin use: with usp use Diabetes mellitus complication status: without complication Qualified Code(s): E11.9 - Type 2 diabetes mellitus without complications; Z79.4 - senior living (current) use of insulin Code(s): E11.9 - Type 2 diabetes mellitus without complications Status: Acute (8) COPD (chronic obstructive pulmonary disease): Qualifiers: COPD type: unspecified COPD Qualified Code(s): J44.9 - Chronic obstructive pulmonary disease, unspecified Code(s): J44.9 - Chronic obstructive pulmonary disease, unspecified Status: Acute (9) Knee pain, right: Qualifiers: Chronicity: acute Qualified Code(s): M25.561 - Pain in right knee Code(s): M25.561 - Pain in right knee Status: Acute (10) Hypertension: Qualifiers: Hypertension type: primary hypertension Qualified Code(s): I10 - Essential (primary) hypertension Code(s): I10 - Essential (primary) hypertension Status: Acute (11) Bacteremia: Code(s): R78.81 - Bacteremia Status: Acute Plan Bacteremia -Gram + cocci aerobic bottle -responding to Rocephin -allergic to vancomycin -ID consulted for further recommendations -F/U cultures 48hrs AMS-RESOLVED -POA per ED notes alert and oriented now but lethargic -CT head negative -UTI+ UTI -Urine cultures Proteus Mirabilis -Continue IV hydration. -Monitor CBC, CMP watch for sepsis. -Monitor vital signs. -Start Rocephin -Monitor for obstructive uropathy and pyelonephritis Acute on chronic renal failure-RESOLVED -CKD 3 -Gentle IV hydration. -Cr 1.4 POA appears close to baseline -Avoid nephrotoxic drugs. -Monitor antihypertensive drug therapy. -Avoid NSAIDs. -Routine CMP monitoring GFR. -Monitor electrolytes especially potassium. -Antibiotic doses depending on creatinine clearance. -Pharmacy does medications. -Routine follow-up with Nephrology as an outpatient. Jzbvpafetik-[id number] -2.7 POA -replenshised -continue to trend and replenish as needed -continious cardiac monitoring Generalized Weakness -Secondary to UTI -PT/OT -IV fluids -recent LT toes amputated at [facility] for therapy Acute RT knee pain -XR showing OA -NSAIDS -PT/OT ABD Pain-RESOLVED -No N/V -Mild tenderness to palpation -no Urine output noted -bladder scan ordered -HX of AAA 4.[address] scan COPD -Stable -supplemental oxygen PRN -resume home inhaler Diabetes -Accu-Cheks a.c. HS -sliding scale insulin -resume patient's home long-acting -Diabetic diet -consult to dietitian -Optimize Donnie inhibitors and statins. -Watch for hypoglycemia/hypoglycemic protocol ordered HTN HX -Stable -resumed home medication -BP per unit policy Code status: DNR DVT prophylaxis: Eliquis Stress ulcer prophylaxis: Protonix 40 daily PT/OT notes: PT/OT Pending (SNF return) Disposition: Patient continues admission to the Medical/telemetry unit for further aisha
[2023-08-15 12:47] LABS: Glucose Point of Care 107 mg/dl (65-105)
--- NOTE | 2023-08-15 14:41 | PCOTNOTE ---
The patient treatment was not able to be completed patient with PT. Will follow up tomorrow. Will plan to continue treatment per plan of care.
[2023-08-15 17:12] LABS: Glucose Point of Care 115 mg/dl (65-105)
[2023-08-15 21:11] LABS: Glucose Point of Care 147 mg/dl (65-105)
[2023-08-16] VITALS (10 sets, daily range): BP systolic 105–119; BP diastolic 37–47; PULSE 67–87; RESP 14–18; TEMP 37.5–37.7; O2SAT 93–100
[2023-08-16] MEDS: LEVOTHYROXINE SODIUM 75 MCG TABLET PO (05:52)
[2023-08-16 08:23] LABS: Glucose Point of Care 64 mg/dl (65-105)
[2023-08-16 08:26] LABS: Basophils Absolute Auto 0.1 K/mm3 (0.0-0.1); Basophils Percent Auto 0.6 % (0.2-1.2); Eosinophils Absolute Auto 0.6 K/mm3 (0-0.3); Eosinophils Percent Auto 7.6 % (0-4.4); Hematocrit 30.6 % (37.0-47.0); Hemoglobin 9.2 g/dL (12.0-15.0); Immature Granulocyte Absolute 0.04 K/mm3 (0.00-0.031); Immature Granulocyte Percent A 0.5 % (0-0.5); Lymphocytes Absolute Auto 1.19 K/mm3 (0.9-3.2); Lymphocytes Percent Auto 14.8 % (18.3-44.2); Mean Corpuscular HGB Conc 30.1 g/dl (32-36); Mean Corpuscular Hemoglobin 27.8 pg (26-34); Mean Corpuscular Volume 92.4 fl (80-100); Mean Platelet Volume 9.7 fl (7.4-10.4); Monocytes Absolute Auto 0.8 K/mm3 (0.1-0.6); Monocytes Percent Auto 9.8 % (2.6-8.5); Neutrophils Absolute Auto 5.4 K/mm3 (1.3-6.7); Neutrophils Percent Auto 66.7 % (45.5-73.1); Platelet Count Result 315 k/mm3 (150-375); Red Blood Count 3.31 M/mm3 (4.2-5.4); Red Cell Distribution Width 14.1 % (11.5-14.5); White Blood Count 8.1 K/mm3 (4.5-10.0)
[2023-08-16 08:45] LABS: Alanine Aminotransferase 11 U/L (6-35); Albumin Level 2.8 g/dL (3.5-5.1); Alkaline Phosphatase 69 U/L (38-126); Anion Gap 6 mmol/L (8-16); Aspartate Amino Transferase 25 U/L (14-36); Bilirubin,Total 0.3 mg/dL (0.2-1.3); Blood Urea Nitrogen 14 mg/dL (7-17); Calcium 8.4 mg/dL (8.4-10.2); Carbon Dioxide 26 mmol/L (22-30); Chloride 109 mmol/L (98-107); Estimated CRCL calculation 28 ml/min; Estimated Glomerular Filt Rate 60; Glucose 64 mg/dL (65-110); Potassium 4.1 mmol/L (3.4-5.0); Sodium 141 mmol/L (137-145)
[2023-08-16] MEDS: hydrOXYzine HCL 10 MG TABLET PO (09:31)
[2023-08-16] MEDS: MIRTAZAPINE 15 MG TABLET PO (09:31)
[2023-08-16] MEDS: CHOLECALCIFEROL 1,000 UNITS TABLET 1000 UNITS PO (09:32)
[2023-08-16] MEDS: ATORVASTATIN 10 MG TABLET PO (09:32)
[2023-08-16] MEDS: PANTOPRAZOLE 40 MG TABLET PO (09:32)
[2023-08-16] MEDS: amLODIPine BESYLATE 5 MG TABLET 10 MG PO (09:32)
[2023-08-16] MEDS: APIXABAN 5 MG TABLET PO ×2 (09:32→16:33)
[2023-08-16] MEDS: LOSARTAN POTASSIUM 50 MG TABLET 100 MG PO (09:32)
[2023-08-16 09:43] LABS: Glucose Point of Care 67 mg/dl (65-105)
--- NOTE | 2023-08-16 09:51 | PM.IMPN ---
Progress Note: A&P Assessment and Plan (1) Altered mental status: Qualifiers: Altered mental status type: disorientation Qualified Code(s): R41.0 - Disorientation, unspecified Code(s): R41.82 - Altered mental status, unspecified Status: Acute (2) Acute hypokalemia: Code(s): E87.6 - Hypokalemia Status: Acute (3) GURPREET (acute kidney injury): Code(s): N17.9 - Acute kidney failure, unspecified Status: Acute (4) Generalized weakness: Code(s): R53.1 - Weakness Status: Acute (5) Acute UTI: Code(s): N39.0 - Urinary tract infection, site not specified Status: Acute (6) Abdominal pain: Qualifiers: Abdominal location: generalized Qualified Code(s): R10.84 - Generalized abdominal pain Code(s): R10.9 - Unspecified abdominal pain Status: Acute (7) Diabetes mellitus: Qualifiers: Diabetes mellitus type: type 2 Diabetes mellitus assisted insulin use: with assisted use Diabetes mellitus complication status: without complication Qualified Code(s): E11.9 - Type 2 diabetes mellitus without complications; Z79.4 - FPC (current) use of insulin Code(s): E11.9 - Type 2 diabetes mellitus without complications Status: Acute (8) COPD (chronic obstructive pulmonary disease): Qualifiers: COPD type: unspecified COPD Qualified Code(s): J44.9 - Chronic obstructive pulmonary disease, unspecified Code(s): J44.9 - Chronic obstructive pulmonary disease, unspecified Status: Acute (9) Knee pain, right: Qualifiers: Chronicity: acute Qualified Code(s): M25.561 - Pain in right knee Code(s): M25.561 - Pain in right knee Status: Acute (10) Hypertension: Qualifiers: Hypertension type: primary hypertension Qualified Code(s): I10 - Essential (primary) hypertension Code(s): I10 - Essential (primary) hypertension Status: Acute (11) Bacteremia: Code(s): R78.81 - Bacteremia Status: Acute Plan Bacteremia -Gram + cocci aerobic bottle -responding to Rocephin -allergic to vancomycin -ID consulted for further recommendations -F/U cultures 48hrs AMS-RESOLVED -POA per ED notes alert and oriented now but lethargic -CT head negative -UTI+ UTI -Urine cultures Proteus Mirabilis -Continue IV hydration. -Monitor CBC, CMP watch for sepsis. -Monitor vital signs. -Rocephin -Monitor for obstructive uropathy and pyelonephritis Acute on chronic renal failure-RESOLVED -CKD 3 -Gentle IV hydration. -Cr 1.4 POA appears close to baseline -Avoid nephrotoxic drugs. -Monitor antihypertensive drug therapy. -Avoid NSAIDs. -Routine CMP monitoring GFR. -Monitor electrolytes especially potassium. -Antibiotic doses depending on creatinine clearance. -Pharmacy does medications. -Routine follow-up with Nephrology as an outpatient. Fifekjgnhmq-GLA-[id number] -2.7 POA -replenshised -continue to trend and replenish as needed -continious cardiac monitoring Generalized Weakness-Improving -Secondary to UTI -PT/OT -IV fluids -recent LT toes amputated at [facility] for therapy Acute RT knee pain -XR showing OA -NSAIDS -PT/OT ABD Pain-RESOLVED -No N/V -Mild tenderness to palpation -no Urine output noted -bladder scan ordered -HX of AAA 4.[address] scan COPD -Stable -supplemental oxygen PRN -resume home inhaler Diabetes -Accu-Cheks a.c. HS -sliding scale insulin -resume patient's home long-acting -Diabetic diet -consult to dietitian -Optimize Donnie inhibitors and statins. -Watch for hypoglycemia/hypoglycemic protocol ordered HTN HX -Stable -resumed home medication -BP per unit policy Code status: DNR DVT prophylaxis: Eliquis Stress ulcer prophylaxis: Protonix 40 daily PT/OT notes: PT/OT Pending (SNF return) Disposition: Patient continues admission to the Medical/telemetry unit for further
[2023-08-16] MEDS: DEXTROSE 50% 25 GM/50 ML SYRINGE IV PUSH (09:59)
[2023-08-16 10:30] LABS: Glucose Point of Care 165 mg/dl (65-105)
[2023-08-16 12:26] LABS: Glucose Point of Care 226 mg/dl (65-105)
[2023-08-16] MEDS: INSULIN ASPART (*BKC) 100 UNITS/ML SUB-Q (12:40)
--- NOTE | 2023-08-16 14:00 | PCOTNOTE ---
Attempted to see pt for Occupational Therapy treatment. Pt declined to participate in session today due to increase pain and not feeling well. Pt was educated on the importance of mobility and sitting up in chair to increase strengthening and decrease stiffness. Pt continues to declined and will not open eyes when speaking with therapist. Will continue per poc duration/frequency tomorrow.
[2023-08-16 17:03] LABS: Glucose Point of Care 146 mg/dl (65-105)
[2023-08-16 19:59] LABS: Glucose Point of Care 141 mg/dl (65-105)
[2023-08-17] VITALS (12 sets, daily range): BP systolic 106–161; BP diastolic 41–52; PULSE 63–93; RESP 12–17; TEMP 37–38.1; O2SAT 95–97
[2023-08-17] MEDS: ACETAMINOPHEN 325 MG TABLET 650 MG PO ×2 (01:59→18:00)
[2023-08-17] MEDS: LEVOTHYROXINE SODIUM 75 MCG TABLET PO (04:56)
[2023-08-17 05:14] LABS: Basophils Percent Auto 0.8 % (0.2-1.2); Eosinophils Absolute Auto 0.3 K/mm3 (0-0.3); Eosinophils Percent Auto 6.7 % (0-4.4); Hematocrit 24.7 % (37.0-47.0); Hemoglobin 7.5 g/dL (12.0-15.0); Immature Granulocyte Absolute 0.02 K/mm3 (0.00-0.031); Immature Granulocyte Percent A 0.4 % (0-0.5); Lymphocytes Percent Auto 16.3 % (18.3-44.2); Mean Corpuscular HGB Conc 30.4 g/dl (32-36); Mean Corpuscular Volume 92.2 fl (80-100); Monocytes Absolute Auto 0.7 K/mm3 (0.1-0.6); Monocytes Percent Auto 13.3 % (2.6-8.5); Neutrophils Absolute Auto 3.1 K/mm3 (1.3-6.7); Neutrophils Percent Auto 62.5 % (45.5-73.1); Platelet Count Result 266 k/mm3 (150-375); Red Blood Count 2.68 M/mm3 (4.2-5.4); Red Cell Distribution Width 13.8 % (11.5-14.5); White Blood Count 4.9 K/mm3 (4.5-10.0)
[2023-08-17 05:35] LABS: Alanine Aminotransferase 10 U/L (6-35); Albumin Level 2.4 g/dL (3.5-5.1); Alkaline Phosphatase 46 U/L (38-126); Anion Gap 3 mmol/L (8-16); Aspartate Amino Transferase 28 U/L (14-36); Bilirubin,Total 0.4 mg/dL (0.2-1.3); Blood Urea Nitrogen 12 mg/dL (7-17); Calcium 7.9 mg/dL (8.4-10.2); Carbon Dioxide 23 mmol/L (22-30); Chloride 110 mmol/L (98-107); Estimated CRCL calculation 28 ml/min; Estimated Glomerular Filt Rate 60; Glucose 79 mg/dL (65-110); Potassium 4.1 mmol/L (3.4-5.0); Sodium 136 mmol/L (137-145)
[2023-08-17 07:57] LABS: Glucose Point of Care 66 mg/dl (65-105)
[2023-08-17 08:03] LABS: Iron 28 ug/dL (37-170)
[2023-08-17] MEDS: GLUCAGON FOR INJ 1 MG VIAL IM (08:11)
[2023-08-17 08:12] LABS: Percent Iron Saturation 14 % (20-50)
[2023-08-17 08:43] LABS: Glucose Point of Care 101 mg/dl (65-105)
--- NOTE | 2023-08-17 12:00 | PM.IMPN ---
Progress Note: A&P Assessment and Plan (1) Altered mental status: Qualifiers: Altered mental status type: disorientation Qualified Code(s): R41.0 - Disorientation, unspecified Code(s): R41.82 - Altered mental status, unspecified Status: Acute (2) Acute hypokalemia: Code(s): E87.6 - Hypokalemia Status: Acute (3) GURPREET (acute kidney injury): Code(s): N17.9 - Acute kidney failure, unspecified Status: Acute (4) Generalized weakness: Code(s): R53.1 - Weakness Status: Acute (5) Acute UTI: Code(s): N39.0 - Urinary tract infection, site not specified Status: Acute (6) Abdominal pain: Qualifiers: Abdominal location: generalized Qualified Code(s): R10.84 - Generalized abdominal pain Code(s): R10.9 - Unspecified abdominal pain Status: Acute (7) Diabetes mellitus: Qualifiers: Diabetes mellitus complication status: without complication Diabetes mellitus buttermaker helper insulin use: with buttermaker helper use Diabetes mellitus type: type 2 Qualified Code(s): E11.9 - Type 2 diabetes mellitus without complications; Z79.4 - USP (current) use of insulin Code(s): E11.9 - Type 2 diabetes mellitus without complications Status: Acute (8) COPD (chronic obstructive pulmonary disease): Qualifiers: COPD type: unspecified COPD Qualified Code(s): J44.9 - Chronic obstructive pulmonary disease, unspecified Code(s): J44.9 - Chronic obstructive pulmonary disease, unspecified Status: Acute (9) Knee pain, right: Qualifiers: Chronicity: acute Qualified Code(s): M25.561 - Pain in right knee Code(s): M25.561 - Pain in right knee Status: Acute (10) Hypertension: Qualifiers: Hypertension type: primary hypertension Qualified Code(s): I10 - Essential (primary) hypertension Code(s): I10 - Essential (primary) hypertension Status: Acute (11) Bacteremia: Code(s): R78.81 - Bacteremia Status: Ruled-out (12) Iron deficiency anemia: Qualifiers: Iron deficiency anemia type: inadequate dietary iron intake Qualified Code(s): D50.8 - Other iron deficiency anemias Code(s): D50.9 - Iron deficiency anemia, unspecified Status: Acute Plan anemia -likely secondary to iron deficiency -poor intake currently -iron panel -Ferrous sulfate b.i.d. started -No blood in stool or sputum -will hold eliquis x 1 day -Transfuse if Hgb <7.0 AMS-RESOLVED -POA per ED notes alert and oriented now but lethargic -CT head negative -UTI+ UTI -Urine cultures Proteus Mirabilis -Continue IV hydration. -Monitor CBC, CMP watch for sepsis. -Monitor vital signs. -de-escalated to Bactrim p.o. -Monitor for obstructive uropathy and pyelonephritis Acute on chronic renal failure-RESOLVED -CKD 3 -Gentle IV hydration. -Cr 1.4 POA appears close to baseline -Avoid nephrotoxic drugs. -Monitor antihypertensive drug therapy. -Avoid NSAIDs. -Routine CMP monitoring GFR. -Monitor electrolytes especially potassium. -Antibiotic doses depending on creatinine clearance. -Pharmacy does medications. -Routine follow-up with Nephrology as an outpatient. Fyecsesrvbp-RJE-LELYHCFX -2.7 POA -replenished -continue to trend and replenish as needed -continuous cardiac monitoring Generalized Weakness -Secondary to UTI -PT/OT -IV fluids -recent LT toes amputated at [facility] for therapy Acute RT knee pain -XR showing OA -NSAIDS -PT/OT ABD Pain-RESOLVED -No N/V -Mild tenderness to palpation -no Urine output noted -bladder scan ordered -HX of AAA 4.[address] scan COPD -Stable -supplemental oxygen PRN -resume home inhaler Diabetes -Having episodes of hypoglycemia eating poorly -Accu-Cheks a.c. HS -sliding scale insulin -Holding home long-acting -Diabetic diet -consult to dietitian -Optimize Donnie inhibitors and statins. -
[2023-08-17 12:21] LABS: Glucose Point of Care 79 mg/dl (65-105)
[2023-08-17 13:48] LABS: IFOB Positive Control Positive; Immunochemical Fecal Occult Bl Positive (N)
[2023-08-17] MEDS: SALINE LOCK FLUSH 10 ML IV PUSH ×2 (14:14→21:22)
--- NOTE | 2023-08-17 16:41 | PCOTNOTE ---
Per RN, pt is not appropriate to be seen for Occupational Therapy treatment today. RN is reporting that pt is very lethargic and sleeping all day, not alert, not eating, and has low blood sugar. Will continue per poc duration/frequency when appropriate.
[2023-08-17 17:07] LABS: Glucose Point of Care 83 mg/dl (65-105)
[2023-08-17] MEDS: FERROUS SULFATE 325 MG TABLET DR PO (17:57)
[2023-08-17] MEDS: SULFAMETHOXAZOLE/TRIMETHOPRIM 800/160 MG DS TABLET 1 TAB PO (21:21)
[2023-08-17 21:27] LABS: Glucose Point of Care 66 mg/dl (65-105)
[2023-08-17] MEDS: DEXTROSE 50% 25 GM/50 ML SYRINGE IV PUSH (21:32)
[2023-08-17 21:53] LABS: Glucose Point of Care 142 mg/dl (65-105)
[2023-08-18] VITALS (13 sets, daily range): BP systolic 103–138; BP diastolic 42–52; PULSE 73–93; RESP 14–16; TEMP 36.5–38.1; O2SAT 90–99
[2023-08-18] MEDS: SALINE LOCK FLUSH 10 ML IV PUSH ×3 (05:18→20:45)
[2023-08-18] MEDS: LEVOTHYROXINE SODIUM 75 MCG TABLET PO (05:18)
[2023-08-18 05:29] LABS: Glucose Point of Care 104 mg/dl (65-105)
[2023-08-18 05:33] LABS: Basophils Percent Auto 0.5 % (0.2-1.2); Eosinophils Absolute Auto 0.3 K/mm3 (0-0.3); Eosinophils Percent Auto 4.3 % (0-4.4); Hematocrit 28.2 % (37.0-47.0); Hemoglobin 8.6 g/dL (12.0-15.0); Immature Granulocyte Absolute 0.05 K/mm3 (0.00-0.031); Immature Granulocyte Percent A 0.8 % (0-0.5); Lymphocytes Absolute Auto 0.62 K/mm3 (0.9-3.2); Lymphocytes Percent Auto 10.3 % (18.3-44.2); Mean Corpuscular HGB Conc 30.5 g/dl (32-36); Mean Corpuscular Hemoglobin 27.8 pg (26-34); Mean Corpuscular Volume 91.3 fl (80-100); Mean Platelet Volume 9.6 fl (7.4-10.4); Monocytes Absolute Auto 0.7 K/mm3 (0.1-0.6); Monocytes Percent Auto 10.8 % (2.6-8.5); Neutrophils Absolute Auto 4.4 K/mm3 (1.3-6.7); Neutrophils Percent Auto 73.3 % (45.5-73.1); Platelet Count Result 290 k/mm3 (150-375); Red Blood Count 3.09 M/mm3 (4.2-5.4); Red Cell Distribution Width 13.9 % (11.5-14.5)
[2023-08-18 05:40] LABS: Alanine Aminotransferase 13 U/L (6-35); Albumin Level 2.8 g/dL (3.5-5.1); Alkaline Phosphatase 73 U/L (38-126); Anion Gap 9 mmol/L (8-16); Aspartate Amino Transferase 30 U/L (14-36); Bilirubin,Total 0.3 mg/dL (0.2-1.3); Blood Urea Nitrogen 9 mg/dL (7-17); Calcium 8.4 mg/dL (8.4-10.2); Carbon Dioxide 22 mmol/L (22-30); Chloride 105 mmol/L (98-107); Estimated CRCL calculation 28 ml/min; Estimated Glomerular Filt Rate 60; Glucose 75 mg/dL (65-110); Potassium 3.6 mmol/L (3.4-5.0); Sodium 136 mmol/L (137-145)
[2023-08-18 08:38] LABS: Glucose Point of Care 72 mg/dl (65-105)
[2023-08-18] MEDS: amLODIPine BESYLATE 5 MG TABLET 10 MG PO (08:45)
[2023-08-18] MEDS: ATORVASTATIN 10 MG TABLET PO (08:45)
[2023-08-18] MEDS: LOSARTAN POTASSIUM 50 MG TABLET 100 MG PO (08:45)
[2023-08-18] MEDS: MIRTAZAPINE 15 MG TABLET PO (08:45)
[2023-08-18] MEDS: FERROUS SULFATE 325 MG TABLET DR PO ×2 (08:46→17:12)
[2023-08-18] MEDS: CHOLECALCIFEROL 1,000 UNITS TABLET 1000 UNITS PO (08:46)
[2023-08-18] MEDS: PANTOPRAZOLE SODIUM IV 40 MG VIAL IV PUSH (08:46)
[2023-08-18] MEDS: hydrOXYzine HCL 10 MG TABLET PO (08:46)
[2023-08-18] MEDS: SULFAMETHOXAZOLE/TRIMETHOPRIM 800/160 MG DS TABLET 1 TAB PO (08:46)
--- NOTE | 2023-08-18 10:55 | PM.IMPN ---
Progress Note: A&P Assessment and Plan (1) Altered mental status: Qualifiers: Altered mental status type: disorientation Qualified Code(s): R41.0 - Disorientation, unspecified Code(s): R41.82 - Altered mental status, unspecified Status: Acute (2) Acute hypokalemia: Code(s): E87.6 - Hypokalemia Status: Acute (3) GURPREET (acute kidney injury): Code(s): N17.9 - Acute kidney failure, unspecified Status: Acute (4) Generalized weakness: Code(s): R53.1 - Weakness Status: Acute (5) Acute UTI: Code(s): N39.0 - Urinary tract infection, site not specified Status: Acute (6) Abdominal pain: Qualifiers: Abdominal location: generalized Qualified Code(s): R10.84 - Generalized abdominal pain Code(s): R10.9 - Unspecified abdominal pain Status: Acute (7) Diabetes mellitus: Qualifiers: Diabetes mellitus type: type 2 Diabetes mellitus custodial insulin use: with custodial use Diabetes mellitus complication status: without complication Qualified Code(s): E11.9 - Type 2 diabetes mellitus without complications; Z79.4 - senior living (current) use of insulin Code(s): E11.9 - Type 2 diabetes mellitus without complications Status: Acute (8) COPD (chronic obstructive pulmonary disease): Qualifiers: COPD type: unspecified COPD Qualified Code(s): J44.9 - Chronic obstructive pulmonary disease, unspecified Code(s): J44.9 - Chronic obstructive pulmonary disease, unspecified Status: Acute (9) Knee pain, right: Qualifiers: Chronicity: acute Qualified Code(s): M25.561 - Pain in right knee Code(s): M25.561 - Pain in right knee Status: Acute (10) Hypertension: Qualifiers: Hypertension type: primary hypertension Qualified Code(s): I10 - Essential (primary) hypertension Code(s): I10 - Essential (primary) hypertension Status: Acute (11) Bacteremia: Code(s): R78.81 - Bacteremia Status: Ruled-out (12) Iron deficiency anemia: Qualifiers: Iron deficiency anemia type: inadequate dietary iron intake Qualified Code(s): D50.8 - Other iron deficiency anemias Code(s): D50.9 - Iron deficiency anemia, unspecified Status: Acute Plan anemia -Stable today 08/18/2023 -likely secondary to iron deficiency -poor intake currently -iron panel -Ferrous sulfate b.i.d. started -No blood in stool or sputum reported -Occult stool positive -GI consulted for any further recommendations -ABD CT pending -will hold eliquis -Transfuse if Hgb <7.0 Fever -Blood cultures NGTD -CT abd order reports pain and occult stool positive -CXR to r/o PNA some consolidation heard AMS-RESOLVED -POA per ED notes alert and oriented now but lethargic -CT head negative -UTI+ UTI -Urine cultures Proteus Mirabilis -Continue IV hydration. -Monitor CBC, CMP watch for sepsis. -Monitor vital signs. -de-escalated to Bactrim p.o. -Monitor for obstructive uropathy and pyelonephritis Acute on chronic renal failure-RESOLVED -CKD 3 -Gentle IV hydration. -Cr 1.4 POA appears close to baseline -Avoid nephrotoxic drugs. -Monitor antihypertensive drug therapy. -Avoid NSAIDs. -Routine CMP monitoring GFR. -Monitor electrolytes especially potassium. -Antibiotic doses depending on creatinine clearance. -Pharmacy does medications. -Routine follow-up with Nephrology as an outpatient. Mnyrmcdceyx-IKI-[id number] -2.7 POA -replenished -continue to trend and replenish as needed -continuous cardiac monitoring Generalized Weakness -Secondary to UTI -PT/OT -IV fluids -recent LT toes amputated at [facility] for therapy Acute RT knee pain -XR showing OA -NSAIDS -PT/OT COPD -Stable -supplemental oxygen PRN -resume home inhaler Diabetes -Having episodes of hypoglycemia eating poorly -Accu-Cheks a.c. HS -sliding scale insulin -Holding
[2023-08-18 11:43] LABS: Glucose Point of Care 69 mg/dl (65-105)
--- NOTE | 2023-08-18 11:49 | WPDGICN ---
Assessment and Plan Assessment and plan (1) Acute on chronic anemia: Code(s): D64.9 - Anemia, unspecified Status: Acute Assessment and Plan: no overt gib but had occult blood in stool daughter says that had unremarkable colonoscopy few years ago given advanced age, dementia and no obvious GIB family decided against colonoscopy and continue just to monitor (2) Altered mental status: Qualifiers: Altered mental status type: disorientation Qualified Code(s): R41.0 - Disorientation, unspecified Code(s): R41.82 - Altered mental status, unspecified Status: Acute Assessment and Plan: h/o dementia better since admission (3) Occult blood in stools: Code(s): R19.5 - Other fecal abnormalities Status: Acute (4) GURPREET (acute kidney injury): Code(s): N17.9 - Acute kidney failure, unspecified Status: Acute Assessment and Plan: resolved (5) Acute UTI: Code(s): N39.0 - Urinary tract infection, site not specified Status: Acute Assessment and Plan: on treatment (6) Dementia: Code(s): F03.90 - Unspecified dementia, unspecified severity, without behavioral disturbance, psychotic disturbance, mood disturbance, and anxiety Status: Acute (7) COPD (chronic obstructive pulmonary disease): Qualifiers: COPD type: unspecified COPD Qualified Code(s): J44.9 - Chronic obstructive pulmonary disease, unspecified Code(s): J44.9 - Chronic obstructive pulmonary disease, unspecified Status: Acute GI Consult Note Consult date/time: 08/18/23 11:49 Reason for consult: occult blood stool HPI: Sandra Levine is a 83 year old female who is a longterm patient with dementia, HTN, COD, DM, on eliquis. She was admitted 4 days ago with lethargic and UTI, started on abx. Noted also anemia with hgb ~ 8-9 (few months ago 10), work up c/w DEMAR. Occult blood stool positive but RN told me that had brown stool and no signs of overt gib. Patient is awake but alert 1-2 (she knows that is in the hospita, I am 24 yo ). I talked to daughter in the phone. 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 Needed amputation to all 5 toes Family History Family History Sibling Diabetes mellitus Social History Social History Smoking packs per day: 1 Smoking cigarettes per day: 20.0 Years smoked: 50 Smoking pack-years: 50.00 Smoking status: Former smoker Alcohol intake: never Substance use: never Additional living arrangements comments: Currently living at [facility] due to recent toe amputation and needing therapy Occupation/Education: retired Gender identity (if verbalized by the patient): Female Sexual Orientation (if Verbalized by the Patient): Straight or Heterosexual Spiritual care concerns: No Meds Home Medications and Allergies Home Medications Medication Instructions Recorded Confirmed Type albuterol sulfate 90 mcg/actuation 2 inh inhalation BID PRN Shortness 02/03/20 08/14/23 History aerosol inhaler Of Breath cetirizine 10 mg capsule (Zyrtec) 10 mg PO DAILY PRN allergy 03/28/22 08/14/23 Rx symptoms #30 caps aspirin 81 mg tablet,delayed 81 mg PO DAILY 01/21/23 08/14/23 History release
[2023-08-18 12:12] LABS: Glucose Point of Care 98 mg/dl (65-105)
[2023-08-18] MEDS: PIPERACILLIN/TAZ 2.25G/NS 50ML 2.25 GM/50 ML BAG IVPB ×3 (13:40→23:25)
[2023-08-18] MEDS: SODIUM CHLORIDE 0.9% IV 1,000 ML 100 ML IV CONT (14:11)
[2023-08-18 14:27] LABS: Lactic Acid Reflex 0.8 mmol/L (0.7-2.0)
--- NOTE | 2023-08-18 14:34 | PM.CNGS ---
Assessment and Plan Assessment and plan (1) Diverticulitis of colon with perforation: Code(s): K57.20 - Diverticulitis of large intestine with perforation and abscess without bleeding Status: Acute Assessment and Plan: Patient found to have CT evidence of perforated sigmoid diverticulitis with a small amount of free intraperitoneal air localized near the sigmoid and a small area distant in the upper abdomen. She is hemodynamically stable and actually not complaining of any abdominal pain at this time. She has tenderness across the lower abdomen worse in the left lower quadrant. No diffuse peritoneal signs or significant abdominal distention. I discussed the case with Dr. Soto. We would recommend to continue with conservative treatment with broad-spectrum IV antibiotics, bowel rest, and IV fluids. Agree with continuing IV Zosyn for now. Will make her NPO except ice chips and sips of meds. Will continue to closely monitor with serial abdominal exams and labs. I discussed the plan with the patient's daughter/POA. We discussed that hopefully this will continue to improve with IV antibiotics, and that we try to avoid surgery acutely as it comes with a higher risk of a colostomy. Along with the risks of a colostomy, she would also be a higher risk surgical candidate given her advanced age and multiple co-morbidities listed below. The patient's daughter understands and agrees with the plan. (2) Acute UTI: Code(s): N39.0 - Urinary tract infection, site not specified Status: Acute Assessment and Plan: Urine cx growing proteus mirabilis. IV Zosyn will cover for her UTI. Bactrim stopped. (3) Acute on chronic anemia: Code(s): D64.9 - Anemia, unspecified Status: Acute Assessment and Plan: GI consulted and family decided to avoid a colonoscopy at this time and monitor. She has not required any transfusions. Stool occult positive, but no overt bleeding noted. She is currently on iron with previous iron studies suggesting iron deficiency anemia. (4) Dementia: Code(s): F03.90 - Unspecified dementia, unspecified severity, without behavioral disturbance, psychotic disturbance, mood disturbance, and anxiety Status: Acute Assessment and Plan: Oriented to 1-2 at baseline but typically more alert than she is today. Apparently this improved initially after admission, but she is more lethargic today. (5) Anticoagulated by anticoagulation treatment: Code(s): Z79.01 - court worker (current) use of anticoagulants Status: Acute Assessment and Plan: Eliquis on hold for anemia, continue to hold for now. Unclear why she is taking Eliquis after questioning the daughter and reviewing her chart. (6) COPD (chronic obstructive pulmonary disease): Qualifiers: COPD type: unspecified COPD Qualified Code(s): J44.9 - Chronic obstructive pulmonary disease, unspecified Code(s): J44.9 - Chronic obstructive pulmonary disease, unspecified Status: Acute (7) Diabetes mellitus: Qualifiers: Diabetes mellitus type: type 2 Diabetes mellitus irrigator gravity flow insulin use: with care home use Diabetes mellitus complication status: without complication Qualified Code(s): E11.9 - Type 2 diabetes mellitus without complications; Z79.4 - MCFP (current) use of insulin Code(s): E11.9 - Type 2 diabetes mellitus without complications Status: Acute (8) Hypertension: Qualifiers: Hypertension type: primary hypertension Qualified Code(s): I10 - Essential (primary) hypertension Code(s): I10 - Essential (primary) hypertension Status: Acute Plan I have discussed the patient's case and plan of care with Dr. Soto. History of Present Illness Consult details Consult date: 08/18/23 Reason for consult: other (Perforated diverticulitis) Requesting physician: Isha Glasgow, BUDGET EXAMINER Narrative: This is an 83-year-old woman who we have been asked to
[2023-08-18 17:09] LABS: Glucose Point of Care 68 mg/dl (65-105)
[2023-08-18] MEDS: DEXTROSE 50% 25 GM/50 ML SYRINGE IV PUSH (17:12)
[2023-08-18] MEDS: ACETAMINOPHEN 325 MG TABLET 650 MG PO (17:12)
[2023-08-18 17:42] LABS: Glucose Point of Care 145 mg/dl (65-105)
[2023-08-18] MEDS: DEXTROSE 5%/0.9% SOD CHL 1,000 ML 100 ML IV CONT (18:01)
[2023-08-18] MEDS: FAMOTIDINE 20 MG TABLET PO (20:45)
[2023-08-18 23:29] LABS: Glucose Point of Care 161 mg/dl (65-105)
[2023-08-19] VITALS (13 sets, daily range): BP systolic 105–132; BP diastolic 36–82; PULSE 66–78; RESP 16–18; TEMP 36.6–37.1; O2SAT 90–93
[2023-08-19] MEDS: DEXTROSE 5%/0.9% SOD CHL 1,000 ML 100 ML IV CONT ×2 (04:30→15:07)
[2023-08-19] MEDS: LEVOTHYROXINE SODIUM 75 MCG TABLET PO (05:36)
[2023-08-19] MEDS: SALINE LOCK FLUSH 10 ML IV PUSH ×3 (05:36→20:04)
[2023-08-19] MEDS: PIPERACILLIN/TAZ 2.25G/NS 50ML 2.25 GM/50 ML BAG IVPB ×3 (05:36→17:28)
[2023-08-19 05:45] LABS: Glucose Point of Care 179 mg/dl (65-105)
[2023-08-19 06:06] LABS: Basophils Percent Auto 0.2 % (0.2-1.2); Eosinophils Absolute Auto 0.4 K/mm3 (0-0.3); Eosinophils Percent Auto 6.7 % (0-4.4); Hematocrit 27.2 % (37.0-47.0); Hemoglobin 8.3 g/dL (12.0-15.0); Immature Granulocyte Absolute 0.04 K/mm3 (0.00-0.031); Immature Granulocyte Percent A 0.7 % (0-0.5); Lymphocytes Absolute Auto 0.67 K/mm3 (0.9-3.2); Lymphocytes Percent Auto 12.2 % (18.3-44.2); Mean Corpuscular HGB Conc 30.5 g/dl (32-36); Mean Corpuscular Hemoglobin 28.1 pg (26-34); Mean Corpuscular Volume 92.2 fl (80-100); Mean Platelet Volume 9.4 fl (7.4-10.4); Monocytes Absolute Auto 0.7 K/mm3 (0.1-0.6); Monocytes Percent Auto 12.2 % (2.6-8.5); Neutrophils Absolute Auto 3.8 K/mm3 (1.3-6.7); Platelet Count Result 262 k/mm3 (150-375); Red Blood Count 2.95 M/mm3 (4.2-5.4); White Blood Count 5.5 K/mm3 (4.5-10.0)
[2023-08-19 06:22] LABS: Alanine Aminotransferase 12 U/L (6-35); Albumin Level 2.5 g/dL (3.5-5.1); Alkaline Phosphatase 65 U/L (38-126); Anion Gap 7 mmol/L (8-16); Aspartate Amino Transferase 32 U/L (14-36); Bilirubin,Total 0.3 mg/dL (0.2-1.3); Blood Urea Nitrogen 7 mg/dL (7-17); Calcium 7.7 mg/dL (8.4-10.2); Carbon Dioxide 23 mmol/L (22-30); Chloride 108 mmol/L (98-107); Estimated CRCL calculation 25 ml/min; Estimated Glomerular Filt Rate 53; Glucose 180 mg/dL (65-110); Potassium 3.8 mmol/L (3.4-5.0); Sodium 138 mmol/L (137-145)
--- NOTE | 2023-08-19 07:33 | P.CDI_ITS ---
CDI Query Clarification Request BMI 18.7 Nutritional Diagnostic Statement Moderate Malnutrition related to increased protein needs in the setting of chronic disease (COPD) as evidenced by <75% of estimated protein needs >7days ; mild muscle wasting (temporalis) and mild subcutaneous fat loss (orbital fat pads). Please refer to the comprehensive nutrition assessment for further information. Please clarify severity of protein calorie malnutrition if known: * Mild * Moderate * Severe * Other/Unspecified <Isha Lopes RN - Last Filed: 08/19/23 07:38> Clarified Diagnosis Clarified Diagnosis: Moderate Malnutrition -Secondary diverticulitis with perforation -NPO status <Isha Glasgow APRN - Last Filed: 08/19/23 10:38>
--- NOTE | 2023-08-19 07:46 | P.CDI_ITS ---
CDI Query Clarification Request Documentation in the medical record indicates that this patient has been diagnosed as having the symptoms of ALTERED MENTAL STATUS. Additional findings also documented in the medical record : * Infection: UTI * Leukocytosis (WBC 13) * Positive Urine Culture ( 08/14/23) * Acute hypokalemia * Bun 34 Creatinine 1.40 ( 08/14/23) * Dehydration Based on your medical judgement , can you further clarify in the progress notes if these findings associated with altered mental status are due to a definite or suspected underlying neurological cause such as: * Metabolic Encephalopathy * Toxic Encephalopathy * Altered mental status without encephalopathy * Other conditions (Please specify) * None of the above/Not applicable/Unknown Thank you! <Isha Lopes RN - Last Filed: 08/19/23 08:01> Clarified Diagnosis Clarified Diagnosis: Metabolic encephalopathy secondary to UTI and dehydration-resolved -At baseline HX of dementia <Isha Glasgow APRN - Last Filed: 08/19/23 10:36>
--- NOTE | 2023-08-19 07:46 | WPDCDIQUERY2 ---
CDI Query Clarification Request Documentation in the medical record indicates that this patient has been diagnosed as having the symptoms of ALTERED MENTAL STATUS. Additional findings also documented in the medical record : Infection: UTI Leukocytosis (WBC 13) Positive Urine Culture ( 08/14/23) Acute hypokalemia Bun 34 Creatinine 1.40 ( 08/14/23) Dehydration Based on your medical judgement , can you further clarify in the progress notes if these findings associated with altered mental status are due to a definite or suspected underlying neurological cause such as: Metabolic Encephalopathy Toxic Encephalopathy Altered mental status without encephalopathy Other conditions (Please specify) None of the above/Not applicable/Unknown Thank you! <Isha Lopes RN - Last Filed: 08/19/23 08:01> Clarified Diagnosis Clarified Diagnosis: Metabolic encephalopathy secondary to UTI and dehydration-resolved -At baseline HX of dementia <Isha Glasgow APRN - Last Filed: 08/19/23 10:36>
[2023-08-19 08:40] LABS: Glucose Point of Care 162 mg/dl (65-105)
[2023-08-19] MEDS: amLODIPine BESYLATE 5 MG TABLET 10 MG PO (08:52)
[2023-08-19] MEDS: CHOLECALCIFEROL 1,000 UNITS TABLET 1000 UNITS PO (08:52)
[2023-08-19] MEDS: ATORVASTATIN 10 MG TABLET PO (08:52)
[2023-08-19] MEDS: FERROUS SULFATE 325 MG TABLET DR PO ×2 (08:53→17:28)
[2023-08-19] MEDS: LOSARTAN POTASSIUM 50 MG TABLET 100 MG PO (08:53)
[2023-08-19] MEDS: MIRTAZAPINE 15 MG TABLET PO (08:53)
[2023-08-19] MEDS: hydrOXYzine HCL 10 MG TABLET PO (08:53)
[2023-08-19] MEDS: FAMOTIDINE 20 MG TABLET PO ×2 (08:53→20:02)
--- NOTE | 2023-08-19 10:38 | PM.IMPN ---
Progress Note: A&P Assessment and Plan (1) Altered mental status: Qualifiers: Altered mental status type: disorientation Qualified Code(s): R41.0 - Disorientation, unspecified Code(s): R41.82 - Altered mental status, unspecified Status: Acute (2) Acute hypokalemia: Code(s): E87.6 - Hypokalemia Status: Acute (3) GURPREET (acute kidney injury): Code(s): N17.9 - Acute kidney failure, unspecified Status: Acute (4) Generalized weakness: Code(s): R53.1 - Weakness Status: Acute (5) Acute UTI: Code(s): N39.0 - Urinary tract infection, site not specified Status: Acute (6) Abdominal pain: Qualifiers: Abdominal location: generalized Qualified Code(s): R10.84 - Generalized abdominal pain Code(s): R10.9 - Unspecified abdominal pain Status: Acute (7) Diabetes mellitus: Qualifiers: Diabetes mellitus type: type 2 Diabetes mellitus chcf insulin use: with chcf use Diabetes mellitus complication status: without complication Qualified Code(s): E11.9 - Type 2 diabetes mellitus without complications; Z79.4 - custodial (current) use of insulin Code(s): E11.9 - Type 2 diabetes mellitus without complications Status: Acute (8) COPD (chronic obstructive pulmonary disease): Qualifiers: COPD type: unspecified COPD Qualified Code(s): J44.9 - Chronic obstructive pulmonary disease, unspecified Code(s): J44.9 - Chronic obstructive pulmonary disease, unspecified Status: Acute (9) Knee pain, right: Qualifiers: Chronicity: acute Qualified Code(s): M25.561 - Pain in right knee Code(s): M25.561 - Pain in right knee Status: Acute (10) Hypertension: Qualifiers: Hypertension type: primary hypertension Qualified Code(s): I10 - Essential (primary) hypertension Code(s): I10 - Essential (primary) hypertension Status: Acute (11) Bacteremia: Code(s): R78.81 - Bacteremia Status: Ruled-out (12) Iron deficiency anemia: Qualifiers: Iron deficiency anemia type: inadequate dietary iron intake Qualified Code(s): D50.8 - Other iron deficiency anemias Code(s): D50.9 - Iron deficiency anemia, unspecified Status: Acute (13) Diverticulitis of colon with perforation: Code(s): K57.20 - Diverticulitis of large intestine with perforation and abscess without bleeding Status: Acute (14) Dementia: Qualifiers: Dementia type: unspecified type Dementia severity: mild Dementia behavioral or psychological symptom: without behavioral, psychotic, or mood disturbance or anxiety Qualified Code(s): F03.A0 - Unspecified dementia, mild, without behavioral disturbance, psychotic disturbance, mood disturbance, and anxiety Code(s): F03.90 - Unspecified dementia, unspecified severity, without behavioral disturbance, psychotic disturbance, mood disturbance, and anxiety Status: Acute (15) Acute on chronic anemia: Code(s): D64.9 - Anemia, unspecified Status: Acute (16) Occult blood in stools: Code(s): R19.5 - Other fecal abnormalities Status: Acute (17) Moderate protein-calorie malnutrition: Code(s): E44.0 - Moderate protein-calorie malnutrition Status: Acute Plan Diverticulitis with perforation no abscess -CT ABD/pelvis -Zosyn IV -NPO with ice chips/bowel rest -surgery consulted -conservative management -Daily imaging for improvement anemia -Stable trending flat -likely secondary to iron deficiency -poor intake currently -iron panel -Ferrous sulfate b.i.d. started -No blood in stool or sputum reported -Occult stool positive -GI consulted for any further recommendations -refused colonoscopy -holding eliquis -<7.0 transfuse Fever-Resolved -Blood cultures NGTD -CT abd order reports pain and occult stool positive -CXR to r/o PNA some consolidati
--- NOTE | 2023-08-19 10:56 | PCNFU ---
Nutrition Follow-Up Complete: Moderate Malnutrition related to increased protein needs in the setting of chronic disease (COPD) as evidenced by <75% of estimated protein needs > 7days; mild muscle wasting (temporalis)and milk subcutaneous fat loss (orbital fat pads). Goal: Adequate Intake of at least 75% of meals/supplements Patient is not meeting goal at this time. Will continue goal. Pt current nutrition is NPO. Last recorded weight is 43.4 kg, no new weight to report. Bowel Motility: NO BM Labs Reviewed:Glu 180, Alb 2.5,Hct 27.2,Hgb 8.3 Meds Noted:Zosyn, Remeron, Dextrose, Ferrous Sulfate Skin: WNL Additional Notes: Patient NPO with perforated bowel, plans to continue bowel rest at this time. Agree with diet orders. RD will monitor weight, labs, skin, oral intake, meds every 3 days.
[2023-08-19 11:43] LABS: Glucose Point of Care 194 mg/dl (65-105)
--- NOTE | 2023-08-19 11:59 | PM.PNGS ---
Progress Note: A&P Assessment and Plan (1) Diverticulitis of colon with perforation: Code(s): K57.20 - Diverticulitis of large intestine with perforation and abscess without bleeding Status: Acute Assessment and Plan: Patient's clinical exam and findings are much less severe than what is noted on her CT scan. Today, she has no tenderness at all. There is no peritoneal signs. There are no masses. Her white blood cell count remains normal. She has good bowel sounds. I will go ahead and try her on full liquids. Continue Zosyn (2) Acute UTI: Code(s): N39.0 - Urinary tract infection, site not specified Status: Acute Assessment and Plan: Being treated with Zosyn antibiotics (3) Anticoagulated by anticoagulation treatment: Code(s): Z79.01 - joint terminal attack controller (current) use of anticoagulants Status: Acute Assessment and Plan: Eliquis is on hold. Protime quite elevated on admission. Will recheck coags tomorrow. (4) Dementia: Qualifiers: Dementia type: unspecified type Dementia severity: mild Dementia behavioral or psychological symptom: without behavioral, psychotic, or mood disturbance or anxiety Qualified Code(s): F03.A0 - Unspecified dementia, mild, without behavioral disturbance, psychotic disturbance, mood disturbance, and anxiety Code(s): F03.90 - Unspecified dementia, unspecified severity, without behavioral disturbance, psychotic disturbance, mood disturbance, and anxiety Status: Chronic (5) Iron deficiency anemia: Qualifiers: Iron deficiency anemia type: inadequate dietary iron intake Qualified Code(s): D50.8 - Other iron deficiency anemias Code(s): D50.9 - Iron deficiency anemia, unspecified Status: Chronic (6) Bacteremia: Code(s): R78.81 - Bacteremia Status: Ruled-out Assessment and Plan: Likely a skin contaminant. No clinical significance. Subjective Subjective Date/Time Seen: 08/19/23 11:59 Patient reports: no new complaints, afebrile and other (Sleepy again today. Denies any abdominal pain. Still NPO) Review of Systems Review of Systems: ROS unobtainable: Yes unobtainable due to medical condition Exam Const: General: comfortable, lethargic, tired appearing and average body habitus GI: Inspection: non-distended GI Palp: Yes Soft to palpation, No Tenderness to palpation present (GI), No Guarding due to palpation present (GI) and No Rebound tenderness present Auscultation: normal bowel sounds Psych: Insight: Poor insight present (Psych) Judgement: Poor judgement present (Psych) Objective Data Vital Signs Vital Signs: Vital Signs - 24 hr 08/18/23 13:17 08/18/23 12:00 08/18/23 16:00 Temperature 36.9 C Pulse Rate 79 82 77 Respiratory Rate 14 Blood Pressure 103/48 L Pulse Oximetry 99 08/18/23 17:10 08/18/23 17:12 08/18/23 18:12 Temperature 38.1 C H 38.1 C H 37.6 C Pulse Rate 84 Respiratory Rate 16 Blood Pressure 121/42 L Pulse Oximetry 92 08/18/23 19:41 08/18/23 20:00 08/18/23 23:36 Temperature 36.5 C 36.7 C Pulse Rate 73 76 86 Respiratory Rate 16 16 Blood Pressure 128/45 L 116/52 L Pulse Oximetry 90 91 08/19/23 00:00 08/19/23 03:45 08/19/23 04:00 Temperature 36.7 C Pulse Rate 70 77 76 Respiratory Rate 17 Blood Pressure 116/82 Pulse Oximetry 93 Intake/Output Intake/Output: Intake & Output 08/16/23 08/17/23 08/18/23 08/19/23 23:59 23:59 23:59 23:59 Intake Total 1680 383 352 4068 Balance 1680 031 507 3460 Meds/Results Medications: Active Medications Generic Name Dose Route Start Last Admin Trade Name Freq PRN Reason Stop Dose Admin Acetaminophen 650 mg 08/14/23 03:23 08/18/23 17:12 Acetaminophen 325 Mg Tablet PO 650 mg Q4H PRN Administration Mild Pain (1-3) or Fever Albuterol 2 puff 08/14/23 07:54 Albuterol Sulfate (*Sp) Aerosol 1 Puff INHALATION BID PRN Shortness Of Debra
[2023-08-19 17:21] LABS: Glucose Point of Care 182 mg/dl (65-105)
[2023-08-19 20:24] LABS: Glucose Point of Care 164 mg/dl (65-105)
[2023-08-20] VITALS (8 sets, daily range): BP systolic 120–132; BP diastolic 43–49; PULSE 66–81; RESP 16–18; TEMP 36.4–36.7; O2SAT 90–92
[2023-08-20] MEDS: DEXTROSE 5%/0.9% SOD CHL 1,000 ML 100 ML IV CONT ×3 (00:04→22:46)
[2023-08-20] MEDS: PIPERACILLIN/TAZ 2.25G/NS 50ML 2.25 GM/50 ML BAG IVPB ×4 (00:04→17:32)
[2023-08-20] MEDS: ACETAMINOPHEN 325 MG TABLET 650 MG PO (03:41)
[2023-08-20] MEDS: LORATADINE 10 MG TABLET PO (03:41)
[2023-08-20] MEDS: SALINE LOCK FLUSH 10 ML IV PUSH ×3 (05:30→21:56)
[2023-08-20 05:34] LABS: Basophils Percent Auto 0.5 % (0.2-1.2); Eosinophils Absolute Auto 0.4 K/mm3 (0-0.3); Eosinophils Percent Auto 10.2 % (0-4.4); Immature Granulocyte Absolute 0.03 K/mm3 (0.00-0.031); Immature Granulocyte Percent A 0.8 % (0-0.5); Lymphocytes Absolute Auto 1.01 K/mm3 (0.9-3.2); Lymphocytes Percent Auto 25.8 % (18.3-44.2); Mean Corpuscular HGB Conc 29.6 g/dl (32-36); Mean Corpuscular Hemoglobin 27.9 pg (26-34); Mean Corpuscular Volume 94.1 fl (80-100); Mean Platelet Volume 9.8 fl (7.4-10.4); Monocytes Absolute Auto 0.4 K/mm3 (0.1-0.6); Monocytes Percent Auto 11.3 % (2.6-8.5); Neutrophils Percent Auto 51.4 % (45.5-73.1); Platelet Count Result 256 k/mm3 (150-375); Red Blood Count 2.87 M/mm3 (4.2-5.4); Red Cell Distribution Width 14.3 % (11.5-14.5); White Blood Count 3.9 K/mm3 (4.5-10.0)
[2023-08-20 05:39] LABS: INR 1.2; Prothrombin Time 15.7 Seconds (11.1-14.7)
[2023-08-20 05:40] LABS: Alanine Aminotransferase 10 U/L (6-35); Albumin Level 2.1 g/dL (3.5-5.1); Alkaline Phosphatase 55 U/L (38-126); Anion Gap 4 mmol/L (8-16); Aspartate Amino Transferase 26 U/L (14-36); Bilirubin,Total 0.2 mg/dL (0.2-1.3); Blood Urea Nitrogen 4 mg/dL (7-17); Calcium 7.3 mg/dL (8.4-10.2); Carbon Dioxide 22 mmol/L (22-30); Chloride 113 mmol/L (98-107); Estimated CRCL calculation 28 ml/min; Estimated Glomerular Filt Rate 60; Glucose 181 mg/dL (65-110); Partial Thromboplastin Time 33.6 SECONDS (22.3-36.8); Potassium 3.5 mmol/L (3.4-5.0); Sodium 139 mmol/L (137-145)
[2023-08-20 07:58] LABS: Platelet Estimate Adequate (Adequate)
[2023-08-20 07:59] LABS: Burr Cells 1+ (NORMAL); Hypochromasia 1+ (NORMAL); Poikilocytosis 1+ (NORMAL); Schistocytes Rare (NORMAL)
[2023-08-20 08:15] LABS: Glucose Point of Care 167 mg/dl (65-105)
[2023-08-20] MEDS: FAMOTIDINE 20 MG TABLET PO ×2 (08:46→21:56)
[2023-08-20] MEDS: LOSARTAN POTASSIUM 50 MG TABLET 100 MG PO (08:46)
[2023-08-20] MEDS: ATORVASTATIN 10 MG TABLET PO (08:46)
[2023-08-20] MEDS: hydrOXYzine HCL 10 MG TABLET PO (08:46)
[2023-08-20] MEDS: CHOLECALCIFEROL 1,000 UNITS TABLET 1000 UNITS PO (08:46)
[2023-08-20] MEDS: MIRTAZAPINE 15 MG TABLET PO (08:46)
[2023-08-20] MEDS: amLODIPine BESYLATE 5 MG TABLET 10 MG PO (08:46)
[2023-08-20] MEDS: FERROUS SULFATE 325 MG TABLET DR PO ×2 (08:46→17:32)
[2023-08-20 11:53] LABS: Glucose Point of Care 208 mg/dl (65-105)
[2023-08-20] MEDS: INSULIN ASPART (*BKC) 100 UNITS/ML SUB-Q (11:54)
--- NOTE | 2023-08-20 14:25 | PM.PNGS ---
Progress Note: A&P Assessment and Plan (1) Diverticulitis of colon with perforation: Code(s): K57.20 - Diverticulitis of large intestine with perforation and abscess without bleeding Status: Acute Assessment and Plan: Patient more awake and alert. Tolerated full liquid breakfast and took in quite a bit orally. This is much better than the last 2 days. No abdominal pain and no abdominal tenderness. Will repeat CT scan tomorrow to evaluate for radiographic signs of improvement. (2) Acute UTI: Code(s): N39.0 - Urinary tract infection, site not specified Status: Acute Assessment and Plan: Proteus parabola 6, sensitive to most antibiotics. (3) GURPREET (acute kidney injury): Code(s): N17.9 - Acute kidney failure, unspecified Status: Acute Assessment and Plan: Improved from admission (4) Anticoagulated by anticoagulation treatment: Code(s): Z79.01 - alf (current) use of anticoagulants Status: Acute Assessment and Plan: Eliquis on hold. PT PTT nearly normal. Recheck today. (5) Dementia: Qualifiers: Dementia type: unspecified type Dementia severity: mild Dementia behavioral or psychological symptom: without behavioral, psychotic, or mood disturbance or anxiety Qualified Code(s): F03.A0 - Unspecified dementia, mild, without behavioral disturbance, psychotic disturbance, mood disturbance, and anxiety Code(s): F03.90 - Unspecified dementia, unspecified severity, without behavioral disturbance, psychotic disturbance, mood disturbance, and anxiety Status: Chronic (6) Acute on chronic anemia: Code(s): D64.9 - Anemia, unspecified Status: Acute Assessment and Plan: H&H relatively stable last 4 days. Subjective Subjective Date/Time Seen: 08/20/23 14:25 Patient reports: feels better, pain is less (Patient denies abdominal pain), tolerating liquids well, no bowel movement and afebrile Interval history: Alert and conversant today. This is the 1st time I have seen her this way. Denies having abdominal pain. Review of Systems Review of Systems: ROS unobtainable: Yes unobtainable due to medical condition Exam Const: General: comfortable, no acute distress, alert and awake GI: Inspection: non-distended GI Palp: No Soft to palpation and No Tenderness to palpation present (GI) Auscultation: normal bowel sounds Objective Data Vital Signs Vital Signs: Vital Signs - 24 hr 08/19/23 16:01 08/19/23 16:00 08/19/23 19:53 Temperature 36.6 C 36.8 C Pulse Rate 73 70 72 Respiratory Rate 18 16 Blood Pressure 132/72 105/36 L Pulse Oximetry 92 91 Oxygen Delivery 08/19/23 20:00 08/19/23 23:30 08/19/23 20:00 Temperature 36.6 C Pulse Rate 72 78 Respiratory Rate 16 Blood Pressure 116/47 L Pulse Oximetry 90 Oxygen Delivery Room Air 08/20/23 00:00 08/20/23 03:39 08/20/23 04:00 Temperature 36.7 C Pulse Rate 73 72 69 Respiratory Rate 17 Blood Pressure 124/43 L Pulse Oximetry 90 Oxygen Delivery 08/20/23 08:00 08/20/23 08:01 08/20/23 08:46 Temperature 36.6 C Pulse Rate 67 67 Respiratory Rate 17 Blood Pressure 120/48 L Pulse Oximetry 92 Oxygen Delivery Room Air Intake/Output Intake/Output: Intake & Output 08/17/23 08/18/23 08/19/23 08/20/23 23:59 23:59 23:59 23:59 Intake Total 570 546 7357 2610 Balance 245 481 3794 2610 Meds/Results Medications: Active Medications Generic Name Dose Route Start Last Admin Trade Name Freq PRN Reason Stop Dose Admin Acetaminophen 650 mg 08/14/23 03:23 08/20/23 03:41 Acetaminophen 325 Mg Tablet PO 650 mg Q4H PRN Administration Mild Pain (1-3) or Fever Albuterol 2 puff 08/14/23 07:54 Albuterol Sulfate (*Sp) Aerosol 1 Puff INHALATION BID PRN Shortness Of Breath Amlodipine Besylate 10 mg 08/14/23 09:00 08/20/23 08:46 Amlodipine Besylate 5 Mg Tablet PO 10 mg QAM SC
--- NOTE | 2023-08-20 14:29 | PM.IMPN ---
Progress Note: A&P Assessment and Plan (1) Altered mental status: Qualifiers: Altered mental status type: disorientation Qualified Code(s): R41.0 - Disorientation, unspecified Code(s): R41.82 - Altered mental status, unspecified Status: Resolved Assessment and Plan: CT head negative UTI+ (2) GURPREET (acute kidney injury): Code(s): N17.9 - Acute kidney failure, unspecified Status: Acute Assessment and Plan: Cr 0.9, continue to monitor -Avoid NSAIDs. -Monitor electrolytes especially potassium. -Routine follow-up with Nephrology as an outpatient. 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 (5) Abdominal pain: Qualifiers: Abdominal location: generalized Qualified Code(s): R10.84 - Generalized abdominal pain Code(s): R10.9 - Unspecified abdominal pain Status: Acute (6) Diabetes mellitus: Qualifiers: Diabetes mellitus type: type 2 Diabetes mellitus intermediate school teacher insulin use: with intermediate school teacher use Diabetes mellitus complication status: without complication Qualified Code(s): E11.9 - Type 2 diabetes mellitus without complications; Z79.4 - terminal operations manager (current) use of insulin Code(s): E11.9 - Type 2 diabetes mellitus without complications Status: Chronic Assessment and Plan: -Accu-Cheks a.c. HS, hypoglycemic protocol -sliding scale insulin-holding -Holding home long-acting (7) COPD (chronic obstructive pulmonary disease): Qualifiers: COPD type: unspecified COPD Qualified Code(s): J44.9 - Chronic obstructive pulmonary disease, unspecified Code(s): J44.9 - Chronic obstructive pulmonary disease, unspecified Status: Chronic Assessment and Plan: -supplemental oxygen PRN -resume home inhaler (8) Hypertension: Qualifiers: Hypertension type: primary hypertension Qualified Code(s): I10 - Essential (primary) hypertension Code(s): I10 - Essential (primary) hypertension Status: Chronic Assessment and Plan: Stable, con't to monitor continue home medication (9) Bacteremia: Code(s): R78.81 - Bacteremia Status: Ruled-out Assessment and Plan: Blood cultures NGTD CT abd order reports pain and occult stool positive CXR negative for acute process (10) Iron deficiency anemia: Qualifiers: Iron deficiency anemia type: inadequate dietary iron intake Qualified Code(s): D50.8 - Other iron deficiency anemias Code(s): D50.9 - Iron deficiency anemia, unspecified Status: Chronic Assessment and Plan: -likely secondary to iron deficiency -poor intake currently -Ferrous sulfate b.i.d. started -Occult stool positive -GI consulted -refused colonoscopy - continue to monitor -holding eliquis -<7.0 transfuse (11) Diverticulitis of colon with perforation: Code(s): K57.20 - Diverticulitis of large intestine with perforation and abscess without bleeding Status: Acute Assessment and Plan: as shown on CT A/pelvis Continue Zosyn IV trial full liquids surgery consulted - conservative management (12) Dementia: Qualifiers: Dementia type: unspecified type Dementia severity: mild Dementia behavioral or psychological symptom: without behavioral, psychotic, or mood disturbance or anxiety Qualified Code(s): F03.A0 - Unspecified dementia, mild, without behavioral disturbance, psychotic disturbance, mood disturbance, and anxiety Code(s): F03.90 - Unspecified dementia, unspecified severity, without behavioral disturbance, psychotic disturbance, mood
[2023-08-20 17:00] LABS: Glucose Point of Care 157 mg/dl (65-105)
[2023-08-20 20:50] LABS: Glucose Point of Care 202 mg/dl (65-105)
[2023-08-21] VITALS: BP 129/43; PULSE 79; RESP 18; TEMP 36.4; O2SAT 95
[2023-08-21] MEDS: PIPERACILLIN/TAZ 2.25G/NS 50ML 2.25 GM/50 ML BAG IVPB ×5 (00:38→23:14)
[2023-08-21 03:46] VITALS: BP 132/57; PULSE 76; RESP 18; TEMP 36.6; O2SAT 92
[2023-08-21] MEDS: SALINE LOCK FLUSH 10 ML IV PUSH ×3 (05:41→20:52)
[2023-08-21] MEDS: LEVOTHYROXINE SODIUM 75 MCG TABLET PO (05:41)
[2023-08-21 05:56] LABS: Basophils Percent Auto 0.8 % (0.2-1.2); Eosinophils Absolute Auto 0.5 K/mm3 (0-0.3); Eosinophils Percent Auto 10.2 % (0-4.4); Hematocrit 26.7 % (37.0-47.0); Hemoglobin 8.1 g/dL (12.0-15.0); Immature Granulocyte Absolute 0.07 K/mm3 (0.00-0.031); Immature Granulocyte Percent A 1.5 % (0-0.5); Lymphocytes Absolute Auto 1.18 K/mm3 (0.9-3.2); Lymphocytes Percent Auto 24.5 % (18.3-44.2); Mean Corpuscular HGB Conc 30.3 g/dl (32-36); Mean Corpuscular Hemoglobin 27.6 pg (26-34); Mean Corpuscular Volume 91.1 fl (80-100); Mean Platelet Volume 9.4 fl (7.4-10.4); Monocytes Absolute Auto 0.4 K/mm3 (0.1-0.6); Monocytes Percent Auto 8.3 % (2.6-8.5); Neutrophils Absolute Auto 2.6 K/mm3 (1.3-6.7); Neutrophils Percent Auto 54.7 % (45.5-73.1); Platelet Count Result 280 k/mm3 (150-375); Red Blood Count 2.93 M/mm3 (4.2-5.4); Red Cell Distribution Width 14.3 % (11.5-14.5); White Blood Count 4.8 K/mm3 (4.5-10.0)
[2023-08-21 06:12] LABS: Alanine Aminotransferase 12 U/L (6-35); Albumin Level 2.5 g/dL (3.5-5.1); Alkaline Phosphatase 69 U/L (38-126); Anion Gap 6 mmol/L (8-16); Aspartate Amino Transferase 28 U/L (14-36); Bilirubin,Total 0.2 mg/dL (0.2-1.3); Calcium 7.6 mg/dL (8.4-10.2); Carbon Dioxide 21 mmol/L (22-30); Chloride 113 mmol/L (98-107); Estimated CRCL calculation 31 ml/min; Estimated Glomerular Filt Rate > 60; Glucose 211 mg/dL (65-110); Potassium 3.1 mmol/L (3.4-5.0); Sodium 140 mmol/L (137-145)
[2023-08-21 06:22] LABS: Blood Urea Nitrogen < 2 mg/dL (7-17)
[2023-08-21 08:13] LABS: Glucose Point of Care 205 mg/dl (65-105)
--- NOTE | 2023-08-21 08:25 | PM.PNGS ---
Progress Note: A&P Assessment and Plan (1) Diverticulitis of colon with perforation: Code(s): K57.20 - Diverticulitis of large intestine with perforation and abscess without bleeding Status: Acute Assessment and Plan: Mental status improved again today. Ate a little better yesterday. Patient to have CT scan abdomen and pelvis today. Continue Zosyn for diverticulitis. (2) Acute UTI: Code(s): N39.0 - Urinary tract infection, site not specified Status: Acute Assessment and Plan: Proteus mirabilis, sensitive to most antibiotics. This is day 7 of IV antibiotics. (3) GURPREET (acute kidney injury): Code(s): N17.9 - Acute kidney failure, unspecified Status: Acute Assessment and Plan: Improved from admission (4) Anticoagulated by anticoagulation treatment: Code(s): Z79.01 - care home (current) use of anticoagulants Status: Acute Assessment and Plan: Apixaban on hold (5) Dementia: Qualifiers: Dementia type: unspecified type Dementia severity: mild Dementia behavioral or psychological symptom: without behavioral, psychotic, or mood disturbance or anxiety Qualified Code(s): F03.A0 - Unspecified dementia, mild, without behavioral disturbance, psychotic disturbance, mood disturbance, and anxiety Code(s): F03.90 - Unspecified dementia, unspecified severity, without behavioral disturbance, psychotic disturbance, mood disturbance, and anxiety Status: Chronic (6) Acute on chronic anemia: Code(s): D64.9 - Anemia, unspecified Status: Acute Assessment and Plan: H&H low but stable. Probably drifting down due to dilutional effects. Consider diuretic. Subjective Subjective Date/Time Seen: 08/21/23 08:26 Patient reports: no new complaints, pain is less, bowel movement and afebrile Interval history: Awake and alert again today. Denies any abdominal pain Review of Systems Review of Systems: ROS unobtainable: Yes unobtainable due to medical condition (Dementia) Exam Const: General: comfortable, no acute distress, alert and awake GI: Inspection: normal to inspection and non-distended GI Palp: Yes Soft to palpation and No Tenderness to palpation present (GI) Auscultation: normal bowel sounds Objective Data Vital Signs Vital Signs: Vital Signs - 24 hr 08/20/23 08:46 08/20/23 12:00 08/20/23 16:00 Temperature 36.6 C 36.4 C Pulse Rate 66 81 Respiratory Rate 17 16 Blood Pressure 122/46 L 132/44 L Pulse Oximetry 92 90 Oxygen Delivery Room Air 08/20/23 19:34 08/21/23 00:00 08/21/23 03:46 Temperature 36.5 C 36.4 C 36.6 C Pulse Rate 76 79 76 Respiratory Rate 18 18 18 Blood Pressure 132/49 L 129/43 L 132/57 L Pulse Oximetry 90 95 92 Oxygen Delivery Intake/Output Intake/Output: Intake & Output 08/18/23 08/19/23 08/20/23 08/21/23 23:59 23:59 23:59 23:59 Intake Total 943 2270 3780 100 Balance 943 2270 3780 100 Meds/Results Medications: Active Medications Generic Name Dose Route Start Last Admin Trade Name Freq PRN Reason Stop Dose Admin Acetaminophen 650 mg 08/14/23 03:23 08/20/23 03:41 Acetaminophen 325 Mg Tablet PO 650 mg Q4H PRN Administration Mild Pain (1-3) or Fever Albuterol 2 puff 08/14/23 07:54 Albuterol Sulfate (*Sp) Aerosol 1 Puff INHALATION BID PRN Shortness Of Breath Amlodipine Besylate 10 mg 08/14/23 09:00 08/20/23 08:46 Amlodipine Besylate 5 Mg Tablet PO 10 mg QAM GENOVEVA Administration Atorvastatin Calcium 10 mg 08/14/23 09:00 08/20/23 08:46 Atorvastatin 10 Mg Tablet PO 10 mg DAILY GENOVEVA Administration Dextrose 12.5 gm 08/14/23 07:58 08/18/23 17:12 Dextrose 50% 25 Gm/50 Ml Syringe IV PUSH 12.5 gm PRN PRN Administration Hypoglycemia Protocol Famotidine 20 mg 08/18/23 21:00 08/20/23 21:56 Famotidine 20 Mg Tablet PO 20 mg Q12HR GENOVEVA Administration Ferrous Sulfate 325 mg 08/17/23 1
--- NOTE | 2023-08-21 08:35 | PCOTNOTE ---
The patient treatment was not able to be completed. Patient out of the room. Will plan to continue treatment per plan of care.
[2023-08-21 09:06] VITALS: BP 159/61; PULSE 70; RESP 16; TEMP 36.3; O2SAT 92
[2023-08-21 09:13] VITALS: RESP 16; O2SAT 92
[2023-08-21] MEDS: DEXTROSE 5%/0.9% SOD CHL 1,000 ML 100 ML IV CONT (09:13)
[2023-08-21] MEDS: hydrOXYzine HCL 10 MG TABLET PO (09:14)
[2023-08-21] MEDS: POTASSIUM CHLORIDE 20 MEQ PACKET (FOR LIQUID) 40 MEQ PO (09:14)
[2023-08-21] MEDS: amLODIPine BESYLATE 5 MG TABLET 10 MG PO (09:15)
[2023-08-21] MEDS: CHOLECALCIFEROL 1,000 UNITS TABLET 1000 UNITS PO (09:15)
[2023-08-21] MEDS: MIRTAZAPINE 15 MG TABLET PO (09:15)
[2023-08-21] MEDS: FUROSEMIDE 20 MG TABLET PO (09:15)
[2023-08-21] MEDS: FERROUS SULFATE 325 MG TABLET DR PO ×2 (09:15→17:03)
[2023-08-21] MEDS: LOSARTAN POTASSIUM 50 MG TABLET 100 MG PO (09:15)
[2023-08-21] MEDS: ATORVASTATIN 10 MG TABLET PO (09:15)
[2023-08-21] MEDS: FAMOTIDINE 20 MG TABLET PO ×2 (09:15→20:52)
--- NOTE | 2023-08-21 11:05 | PCNFU ---
Nutrition Follow-Up Complete: Moderate Malnutrition related to increased protein needs in the setting of chronic disease (COPD) as evidenced by <75% of estimated portein needs > 7days; mild muscle wasting (temporalis)and milk subcutaneous fat loss (orbital fat pads). goal: Adequate Intake of at least 75% of meals/supplements patient is progressing towards goal. We will continue current goal. Pt current nutrition is Full liquids with Ensure compact BID. Last recorded weight is 43.4 kg, last reported weight 08/14. Recommend reweigh. Bowel Motility: +Bm reported 08/20 Labs Reviewed:Glu 211, K 3.1,Alb 2.5 Meds Noted:Zosyn, Remeron, Synthroid, Lasix,Lipitor Skin: WNL Additional Notes: Diet order has advanced to full liquids after bowel perforation. Oral Intake 10% of liquids reported. Ensure compact BID has been added. Recommend nutritional ice cream BID as well for an additional 300 kcals and [address] will monitor weight, labs, skin, oral intake, meds every 5 days.
[2023-08-21 12:05] LABS: Glucose Point of Care 240 mg/dl (65-105)
[2023-08-21] MEDS: INSULIN ASPART (*BKC) 100 UNITS/ML SUB-Q (12:10)
--- NOTE | 2023-08-21 14:24 | P.PNIM_ITS ---
Progress Note: A&P Assessment and Plan (1) Altered mental status: Qualifiers: Altered mental status type: disorientation Qualified Code(s): R41.0 - Disorientation, unspecified Code(s): R41.82 - Altered mental status, unspecified Status: Resolved Assessment and Plan: * CT head negative * UTI+ (2) GURPREET (acute kidney injury): Code(s): N17.9 - Acute kidney failure, unspecified Status: Resolved Assessment and Plan: * Cr 0.8, continue to monitor * Monitor electrolytes especially potassium. * Routine follow-up with Nephrology as an outpatient. (3) Generalized weakness: Code(s): R53.1 - Weakness Status: Acute Assessment and Plan: * Secondary to UTI/diverticulitis * PT/OT * recent LT toes amputated at SNF for therapy (4) Acute UTI: Code(s): N39.0 - Urinary tract infection, site not specified Status: Acute Assessment and Plan: * Urine cultures Proteus Mirabilis * Bactrim p.o. 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 HS, hypoglycemic protocol -sliding scale insulin-holding -Holding home long-acting (7) COPD (chronic obstructive pulmonary disease): Qualifiers: COPD type: unspecified COPD Qualified Code(s): J44.9 - Chronic obstructive pulmonary disease, unspecified Code(s): J44.9 - Chronic obstructive pulmonary disease, unspecified Status: Chronic Assessment and Plan: -supplemental oxygen PRN -resume home inhaler (8) Hypertension: Qualifiers: Hypertension type: primary hypertension Qualified Code(s): I10 - Essential (primary) hypertension Code(s): I10 - Essential (primary) hypertension Status: Chronic Assessment and Plan: * Stable, con't to monitor * continue home medication (9) Bacteremia: Code(s): R78.81 - Bacteremia Status: Ruled-out Assessment and Plan: * Blood cultures NGTD * CT abd order reports pain and occult stool positive * CXR negative for acute process (10) Iron deficiency anemia: Qualifiers: Iron deficiency anemia type: inadequate dietary iron intake Qualified Code(s): D50.8 - Other iron deficiency anemias Code(s): D50.9 - Iron deficiency anemia, unspecified Status: Chronic Assessment and Plan: * likely secondary to iron deficiency * poor intake currently * Ferrous sulfate b.i.d. started * Occult stool positive * GI consulted -refused colonoscopy - continue to monitor * holding eliquis (11) Diverticulitis of colon with perforation: Code(s): K57.20 - Diverticulitis of large intestine with perforation and abscess without bleeding Status: Acute Assessment and Plan: * as shown on CT A/pelvis * Continue Zosyn IV * trial full liquids * surgery consulted - conservative management * repeat CTA 08/21 showed Sigmoid diverticuliti
--- NOTE | 2023-08-21 14:24 | PM.IMPN ---
Progress Note: A&P Assessment and Plan (1) Altered mental status: Qualifiers: Altered mental status type: disorientation Qualified Code(s): R41.0 - Disorientation, unspecified Code(s): R41.82 - Altered mental status, unspecified Status: Resolved Assessment and Plan: CT head negative UTI+ (2) GURPREET (acute kidney injury): Code(s): N17.9 - Acute kidney failure, unspecified Status: Resolved Assessment and Plan: Cr 0.8, continue to monitor Monitor electrolytes especially potassium. Routine follow-up with Nephrology as an outpatient. (3) Generalized weakness: Code(s): R53.1 - Weakness Status: Acute Assessment and Plan: Secondary to UTI/diverticulitis PT/OT recent LT toes amputated at SNF for therapy (4) Acute UTI: Code(s): N39.0 - Urinary tract infection, site not specified Status: Acute Assessment and Plan: Urine cultures Proteus Mirabilis Bactrim p.o. (5) Abdominal pain: Qualifiers: Abdominal location: generalized Qualified Code(s): R10.84 - Generalized abdominal pain Code(s): R10.9 - Unspecified abdominal pain Status: Acute (6) Diabetes mellitus: Qualifiers: Diabetes mellitus type: type 2 Diabetes mellitus care home insulin use: with termite control representative use Diabetes mellitus complication status: without complication Qualified Code(s): E11.9 - Type 2 diabetes mellitus without complications; Z79.4 - [facility] (current) use of insulin Code(s): E11.9 - Type 2 diabetes mellitus without complications Status: Chronic Assessment and Plan: -Accu-Cheks a.c. HS, hypoglycemic protocol -sliding scale insulin-holding -Holding home long-acting (7) COPD (chronic obstructive pulmonary disease): Qualifiers: COPD type: unspecified COPD Qualified Code(s): J44.9 - Chronic obstructive pulmonary disease, unspecified Code(s): J44.9 - Chronic obstructive pulmonary disease, unspecified Status: Chronic Assessment and Plan: -supplemental oxygen PRN -resume home inhaler (8) Hypertension: Qualifiers: Hypertension type: primary hypertension Qualified Code(s): I10 - Essential (primary) hypertension Code(s): I10 - Essential (primary) hypertension Status: Chronic Assessment and Plan: Stable, con't to monitor continue home medication (9) Bacteremia: Code(s): R78.81 - Bacteremia Status: Ruled-out Assessment and Plan: Blood cultures NGTD CT abd order reports pain and occult stool positive CXR negative for acute process (10) Iron deficiency anemia: Qualifiers: Iron deficiency anemia type: inadequate dietary iron intake Qualified Code(s): D50.8 - Other iron deficiency anemias Code(s): D50.9 - Iron deficiency anemia, unspecified Status: Chronic Assessment and Plan: likely secondary to iron deficiency poor intake currently Ferrous sulfate b.i.d. started Occult stool positive GI consulted -refused colonoscopy - continue to monitor holding eliquis (11) Diverticulitis of colon with perforation: Code(s): K57.20 - Diverticulitis of large intestine with perforation and abscess without bleeding Status: Acute Assessment and Plan: as shown on CT A/pelvis Continue Zosyn IV trial full liquids surgery consulted - conservative management repeat CTA 08/21 showed Sigmoid diverticulitis with microperforation. Small volume of ascites, worsened from 08/18/2023. Small loculated left pleural effusion, new from 08/18/2023. 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 Persistent mild left hydronephrosis and hydroureter. (12) Dementia: Qualifiers: Dementia type: unspecified type Dementia severity: mild Dementia behavioral or psychological symptom: without behavioral, psychotic, or mood disturbance or anxiety Qualified Code(s): F03.
[2023-08-21 14:36] VITALS: BP 141/70; PULSE 85; RESP 18; TEMP 36.3; O2SAT 97
[2023-08-21 16:56] LABS: Glucose Point of Care 197 mg/dl (65-105)
[2023-08-21 19:18] VITALS: BP 149/59; PULSE 76; RESP 18; TEMP 36.7; O2SAT 95
[2023-08-21 22:22] LABS: Glucose Point of Care 189 mg/dl (65-105)
[2023-08-22] VITALS (7 sets, daily range): BP systolic 113–133; BP diastolic 42–78; PULSE 68–84; RESP 17–20; TEMP 36.1–36.8; O2SAT 90–97
[2023-08-22 05:30] LABS: Basophils Percent Auto 0.7 % (0.2-1.2); Eosinophils Absolute Auto 0.3 K/mm3 (0-0.3); Eosinophils Percent Auto 7.4 % (0-4.4); Hematocrit 25.6 % (37.0-47.0); Hemoglobin 7.5 g/dL (12.0-15.0); Immature Granulocyte Absolute 0.04 K/mm3 (0.00-0.031); Immature Granulocyte Percent A 0.9 % (0-0.5); Lymphocytes Percent Auto 34.9 % (18.3-44.2); Mean Corpuscular HGB Conc 29.3 g/dl (32-36); Mean Corpuscular Hemoglobin 27.2 pg (26-34); Mean Corpuscular Volume 92.8 fl (80-100); Mean Platelet Volume 9.3 fl (7.4-10.4); Monocytes Absolute Auto 0.4 K/mm3 (0.1-0.6); Monocytes Percent Auto 8.3 % (2.6-8.5); Neutrophils Absolute Auto 2.2 K/mm3 (1.3-6.7); Neutrophils Percent Auto 47.8 % (45.5-73.1); Platelet Count Result 249 k/mm3 (150-375); Red Blood Count 2.76 M/mm3 (4.2-5.4); Red Cell Distribution Width 14.8 % (11.5-14.5); White Blood Count 4.6 K/mm3 (4.5-10.0)
[2023-08-22 05:40] LABS: Alanine Aminotransferase 11 U/L (6-35); Albumin Level 2.4 g/dL (3.5-5.1); Alkaline Phosphatase 68 U/L (38-126); Anion Gap 6 mmol/L (8-16); Aspartate Amino Transferase 26 U/L (14-36); Bilirubin,Total 0.2 mg/dL (0.2-1.3); Calcium 7.8 mg/dL (8.4-10.2); Carbon Dioxide 22 mmol/L (22-30); Chloride 113 mmol/L (98-107); Estimated CRCL calculation 28 ml/min; Estimated Glomerular Filt Rate 60; Glucose 132 mg/dL (65-110); Potassium 3.7 mmol/L (3.4-5.0); Sodium 141 mmol/L (137-145)
[2023-08-22 05:45] LABS: Blood Urea Nitrogen < 2 mg/dL (7-17)
[2023-08-22] MEDS: LEVOTHYROXINE SODIUM 75 MCG TABLET PO (05:59)
[2023-08-22] MEDS: PIPERACILLIN/TAZ 2.25G/NS 50ML 2.25 GM/50 ML BAG IVPB ×4 (05:59→23:16)
[2023-08-22 06:00] LABS: Anisocytosis 1+ (NORMAL); Hypochromasia 1+ (NORMAL); Platelet Estimate Adequate (Adequate); Poikilocytosis 1+ (NORMAL)
[2023-08-22] MEDS: SALINE LOCK FLUSH 10 ML IV PUSH ×3 (06:00→22:46)
[2023-08-22 06:01] LABS: Burr Cells 1+ (NORMAL); Ovalocytes 1+ (NORMAL); Schistocytes None Seen (NORMAL)
[2023-08-22 08:47] LABS: Glucose Point of Care 105 mg/dl (65-105)
[2023-08-22] MEDS: FERROUS SULFATE 325 MG TABLET DR PO ×2 (09:53→17:42)
[2023-08-22] MEDS: ATORVASTATIN 10 MG TABLET PO (09:53)
[2023-08-22] MEDS: amLODIPine BESYLATE 5 MG TABLET 10 MG PO (09:53)
[2023-08-22] MEDS: CHOLECALCIFEROL 1,000 UNITS TABLET 1000 UNITS PO (09:53)
[2023-08-22] MEDS: hydrOXYzine HCL 10 MG TABLET PO (09:53)
[2023-08-22] MEDS: MIRTAZAPINE 15 MG TABLET PO (09:53)
[2023-08-22] MEDS: FUROSEMIDE 20 MG TABLET PO (09:53)
[2023-08-22] MEDS: FAMOTIDINE 20 MG TABLET PO (09:53)
[2023-08-22] MEDS: ACETAMINOPHEN 325 MG TABLET 650 MG PO (10:10)
[2023-08-22 12:03] LABS: Glucose Point of Care 111 mg/dl (65-105)
[2023-08-22] MEDS: LOSARTAN POTASSIUM 50 MG TABLET 100 MG PO (12:28)
--- NOTE | 2023-08-22 14:48 | P.PNIM_ITS ---
Progress Note: A&P Assessment and Plan (1) Altered mental status: Qualifiers: Altered mental status type: disorientation Qualified Code(s): R41.0 - Disorientation, unspecified Code(s): R41.82 - Altered mental status, unspecified Status: Resolved Assessment and Plan: * CT head negative * UTI+ (2) GURPREET (acute kidney injury): Code(s): N17.9 - Acute kidney failure, unspecified Status: Resolved Assessment and Plan: * Cr 0.9, continue to monitor * Monitor electrolytes especially potassium. * Routine follow-up with Nephrology as an outpatient. (3) Generalized weakness: Code(s): R53.1 - Weakness Status: Acute Assessment and Plan: * Secondary to UTI/diverticulitis * PT/OT * recent LT toes amputated at SNF for therapy (4) Acute UTI: Code(s): N39.0 - Urinary tract infection, site not specified Status: Acute Assessment and Plan: * Urine cultures Proteus Mirabilis * Bactrim course completed * will order repeat culture (5) Abdominal pain: Qualifiers: Abdominal location: generalized Qualified Code(s): R10.84 - Generalized abdominal pain Code(s): R10.9 - Unspecified abdominal pain Status: Acute Assessment and Plan: * repeat CT showed sigmoid diverticulitis with microperforation. Small volume of ascites, worsened from 08/18/2023. Small loculated left pleural effusion, new from 08/18/2023. 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 Persistent mild left hydronephrosis and hydroureter. * general surgery consulted and following * tolerating low fiber diet * continue Zosyn (6) Diabetes mellitus: Qualifiers: Diabetes mellitus complication status: without complication Diabetes mellitus supervisor intermediates insulin use: with supervisor intermediates use Diabetes mellitus type: type 2 Qualified Code(s): E11.9 - Type 2 diabetes mellitus without complications; Z79.4 - [facility] (current) use of insulin Code(s): E11.9 - Type 2 diabetes mellitus without complications Status: Chronic Assessment and Plan: * Accu-Cheks a.c. HS, hypoglycemic protocol * sliding scale insulin-holding * Holding home long-acting (7) COPD (chronic obstructive pulmonary disease): Qualifiers: COPD type: unspecified COPD Qualified Code(s): J44.9 - Chronic obstructive pulmonary disease, unspecified Code(s): J44.9 - Chronic obstructive pulmonary disease, unspecified Status: Chronic Assessment and Plan: * supplemental oxygen PRN * resume home inhaler (8) Hypertension: Qualifiers: Hypertension type: primary hypertension Qualified Code(s): I10 - Essential (primary) hypertension Code(s): I10 - Essential (primary) hypertension Status: Chronic Assessment and Plan: * Stable, con't to monitor * continue home medication (9) Bacteremia: Code(s): R78.81 - Bacteremia Status: Ruled-out Assessment and Plan: * Blood cultures NGTD * CT abd order reports pain and occult stool positive * CXR negative for acute process (10) Iron deficiency anemia: Qualifiers: Iron deficiency anemia type: inadequate dietary iron intake Qualified Code(s): D50.8 - Other iron deficiency anemias Code(s): D50.9 - Iron deficiency anemia, unspecified Status: Chronic Assessment and Plan: * likely secondary to iron deficiency * poor intake currently * Ferrous sulfate b.i.d. started * Occult stool positive * GI consult
--- NOTE | 2023-08-22 14:48 | PM.IMPN ---
Progress Note: A&P Assessment and Plan (1) Altered mental status: Qualifiers: Altered mental status type: disorientation Qualified Code(s): R41.0 - Disorientation, unspecified Code(s): R41.82 - Altered mental status, unspecified Status: Resolved Assessment and Plan: CT head negative UTI+ (2) GURPREET (acute kidney injury): Code(s): N17.9 - Acute kidney failure, unspecified Status: Resolved Assessment and Plan: Cr 0.9, continue to monitor Monitor electrolytes especially potassium. Routine follow-up with Nephrology as an outpatient. (3) Generalized weakness: Code(s): R53.1 - Weakness Status: Acute Assessment and Plan: Secondary to UTI/diverticulitis PT/OT recent LT toes amputated at SNF for therapy (4) Acute UTI: Code(s): N39.0 - Urinary tract infection, site not specified Status: Acute Assessment and Plan: Urine cultures Proteus Mirabilis Bactrim course completed will order repeat culture (5) Abdominal pain: Qualifiers: Abdominal location: generalized Qualified Code(s): R10.84 - Generalized abdominal pain Code(s): R10.9 - Unspecified abdominal pain Status: Acute Assessment and Plan: repeat CT showed sigmoid diverticulitis with microperforation. Small volume of ascites, worsened from 08/18/2023. Small loculated left pleural effusion, new from 08/18/2023. 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 Persistent mild left hydronephrosis and hydroureter. general surgery consulted and following tolerating low fiber diet continue Zosyn (6) Diabetes mellitus: Qualifiers: Diabetes mellitus complication status: without complication Diabetes mellitus mcfp insulin use: with mcfp use Diabetes mellitus type: type 2 Qualified Code(s): E11.9 - Type 2 diabetes mellitus without complications; Z79.4 - halfway (current) use of insulin Code(s): E11.9 - Type 2 diabetes mellitus without complications Status: Chronic Assessment and Plan: Accu-Cheks a.c. HS, hypoglycemic protocol sliding scale insulin-holding Holding home long-acting (7) COPD (chronic obstructive pulmonary disease): Qualifiers: COPD type: unspecified COPD Qualified Code(s): J44.9 - Chronic obstructive pulmonary disease, unspecified Code(s): J44.9 - Chronic obstructive pulmonary disease, unspecified Status: Chronic Assessment and Plan: supplemental oxygen PRN resume home inhaler (8) Hypertension: Qualifiers: Hypertension type: primary hypertension Qualified Code(s): I10 - Essential (primary) hypertension Code(s): I10 - Essential (primary) hypertension Status: Chronic Assessment and Plan: Stable, con't to monitor continue home medication (9) Bacteremia: Code(s): R78.81 - Bacteremia Status: Ruled-out Assessment and Plan: Blood cultures NGTD CT abd order reports pain and occult stool positive CXR negative for acute process (10) Iron deficiency anemia: Qualifiers: Iron deficiency anemia type: inadequate dietary iron intake Qualified Code(s): D50.8 - Other iron deficiency anemias Code(s): D50.9 - Iron deficiency anemia, unspecified Status: Chronic Assessment and Plan: likely secondary to iron deficiency poor intake currently Ferrous sulfate b.i.d. started Occult stool positive GI consulted -refused colonoscopy - continue to monitor holding eliquis (11) Diverticulitis of colon with perforation: Code(s): K57.20 - Diverticulitis of large intestine with perforation and abscess without bleeding Status: Acute Assessment and Plan: as shown on CT A/pelvis Continue Zosyn IV tolerating low fiber diet surgery consulted - conservative management repeat CTA 08/21 showed Sigmoid diverticulitis with microperforation. Small vo
--- NOTE | 2023-08-22 15:47 | WPDPN ---
Progress Note: A&P Assessment and Plan (1) Diverticulitis of colon with perforation: Code(s): K57.20 - Diverticulitis of large intestine with perforation and abscess without bleeding Status: Acute Plan Progress note written on paper as computer system was down when I saw the patient. Please see paper record. Subjective Date/time seen: 08/22/23 15:47 Objective Data Vital Signs Vital Signs: Vital Signs - 24 hr 08/21/23 19:18 08/22/23 00:00 08/22/23 04:00 Temperature 36.7 C 36.8 C 36.7 C Pulse Rate 76 70 72 Respiratory Rate 18 18 18 Blood Pressure 149/59 H 127/42 L 124/43 L Pulse Oximetry 95 92 90 Oxygen Delivery 08/22/23 09:22 08/22/23 09:50 08/22/23 11:05 Temperature 36.7 C Pulse Rate 68 Respiratory Rate 17 18 Blood Pressure 113/48 L 128/50 L Pulse Oximetry 95 95 Oxygen Delivery Room Air 08/22/23 14:03 Temperature 36.3 C L Pulse Rate 84 Respiratory Rate 18 Blood Pressure 129/78 Pulse Oximetry 97 Oxygen Delivery Intake/Output Intake/Output: Intake & Output 08/19/23 08/20/23 08/21/23 08/22/23 23:59 23:59 23:59 23:59 Intake Total 2270 3780 1819 100 Balance 2270 3780 1819 100 Meds/Results Medications: Active Medications Generic Name Dose Route Start Last Admin Trade Name Freq PRN Reason Stop Dose Admin Acetaminophen 650 mg 08/14/23 03:23 08/22/23 10:10 Acetaminophen 325 Mg Tablet PO 650 mg Q4H PRN Administration Mild Pain (1-3) or Fever Albuterol 2 puff 08/14/23 07:54 Albuterol Sulfate (*Sp) Aerosol 1 Puff INHALATION BID PRN Shortness Of Breath Amlodipine Besylate 10 mg 08/14/23 09:00 08/22/23 09:53 Amlodipine Besylate 5 Mg Tablet PO 10 mg QAM GENOVEVA Administration Atorvastatin Calcium 10 mg 08/14/23 09:00 08/22/23 09:53 Atorvastatin 10 Mg Tablet PO 10 mg DAILY GENOVEVA Administration Dextrose 12.5 gm 08/14/23 07:58 08/18/23 17:12 Dextrose 50% 25 Gm/50 Ml Syringe IV PUSH 12.5 gm PRN PRN Administration Hypoglycemia Protocol Famotidine 20 mg 08/18/23 21:00 08/22/23 09:53 Famotidine 20 Mg Tablet PO 20 mg Q12HR GENOVEVA Administration Ferrous Sulfate 325 mg 08/17/23 17:00 08/22/23 09:53 Ferrous Sulfate [address] PO 325 mg BID GENOVEVA Administration Furosemide 20 mg 08/21/23 09:00 08/22/23 09:53 Furosemide 20 Mg Tablet PO 20 mg DAILY GENOVEVA Administration Glucagon 1 mg 08/14/23 07:58 08/17/23 08:11 Glucagon For Inj 1 Mg Vial IM 1 mg PRN PRN Administration Hypoglycemia Protocol Glucose 15 gm 08/14/23 07:58 08/15/23 12:17 Glucose Oral Gel 15 Gm Of Glucse In 37.5 Gm Tube PO 15 gm PRN PRN Administration Hypoglycemia Protocol Hydroxyzine HCl 10 mg 08/14/23 09:00 08/22/23 09:53 Hydroxyzine Hcl 10 Mg Tablet PO 10 mg DAILY GENOVEVA Administration Dextrose 1,000 mls @ 100 mls/hr 08/14/23 07:58 Dextrose 5% 1,000 Ml IVPB PRN PRN Hypoglycemia Protocol Piperacillin Sod/Tazobactam Sod 2.25 gm in 50 mls @ 100 mls/hr 08/18/23 13:00 08/22/23 12:58 Zosyn 2.25 Gm/Ns 50 Ml IVPB Infused Q6HR GENOVEVA Infusion Insulin Aspart 2 - 5 units 08/14/23 08:00 08/22/23 12:28 Insulin Aspart (*Bkc) 100 Units/Ml SUB-Q Not Given TIDWM GENOVEVA Protocol Levothyroxine Sodium 75 mcg 08/14/23 08:00 08/22/23 05:59 Levothyroxine Sodium 75 Mcg Tablet PO 75 mcg DAILY@0630 GENOVEVA Administration Loratadine 10 mg 08/14/23 08:09 08/20/23 03:41 Loratadine 10 Mg Tablet PO 10 mg QAM PRN Administration allergy symptoms Losartan Potassium 100 mg 08/14/23 09:00 08/22/23 12:28 Losartan Potassium 50 Mg Tablet PO 100 mg DAILY GENOVEVA Administration Mirtazapine 15 mg 08/14/23 09:00 08/22/23 09:53 Mirtazapine 15 Mg Tablet PO 15 mg DAILY GENOVEVA Administration Ondansetron HCl 4 mg 08/14/23 03:23 Ondansetron Inj 4 Mg/2 Ml Vial IV PUSH Q4H PRN Nausea Sodium Chloride 10 m
[2023-08-22 17:17] LABS: Glucose Point of Care 97 mg/dl (65-105)
[2023-08-22 18:13] LABS: Appearance Urine Clear (Clear); Bacteria Urine None Seen /hpf; Bilirubin Urine Negative (Negative); Blood Urine Negative (Negative); Color Urine Yellow (Yellow); Glucose Urine UA Negative (Negative); Ketones Urine Negative (Negative); Leukocyte Esterase Ur Negative LEU/UL (Negative); Nitrate Urine Negative (Negative); Non Pathogenic Casts 0-2; Protein Urine 1+ mg/dL (Negative); RBC Urine 0-2 /hpf (0-2); Specific Grav Ur 1.007 (1.001-1.035); Squamous Epithelial Cell Urine None seen /hpf (Few); Urobilinogen Urine 0.2 mg/dL (<2.0); WBC Urine 0-5 /hpf; pH Urine 5.5 (5.0-9.0)
[2023-08-22 18:14] LABS: Add Urine Microscopic? YES
[2023-08-22 20:54] LABS: Glucose Point of Care 87 mg/dl (65-105)
[2023-08-23 04:00] VITALS: BP 156/65; PULSE 87; RESP 16; TEMP 36.3; O2SAT 90
[2023-08-23] MEDS: PIPERACILLIN/TAZ 2.25G/NS 50ML 2.25 GM/50 ML BAG IVPB ×4 (05:47→23:11)
[2023-08-23] MEDS: SALINE LOCK FLUSH 10 ML IV PUSH (05:47)
[2023-08-23 06:25] LABS: Basophils Percent Auto 0.6 % (0.2-1.2); Eosinophils Absolute Auto 0.4 K/mm3 (0-0.3); Eosinophils Percent Auto 8.5 % (0-4.4); Hemoglobin 8.3 g/dL (12.0-15.0); Immature Granulocyte Absolute 0.06 K/mm3 (0.00-0.031); Immature Granulocyte Percent A 1.2 % (0-0.5); Lymphocytes Absolute Auto 1.51 K/mm3 (0.9-3.2); Lymphocytes Percent Auto 30.7 % (18.3-44.2); Mean Corpuscular HGB Conc 30.7 g/dl (32-36); Mean Corpuscular Hemoglobin 27.7 pg (26-34); Mean Platelet Volume 8.8 fl (7.4-10.4); Monocytes Absolute Auto 0.3 K/mm3 (0.1-0.6); Monocytes Percent Auto 6.5 % (2.6-8.5); Neutrophils Absolute Auto 2.6 K/mm3 (1.3-6.7); Neutrophils Percent Auto 52.5 % (45.5-73.1); Platelet Count Result 265 k/mm3 (150-375); Red Cell Distribution Width 14.8 % (11.5-14.5); White Blood Count 4.9 K/mm3 (4.5-10.0)
[2023-08-23 06:36] LABS: Anion Gap 7 mmol/L (8-16); Calcium 8.1 mg/dL (8.4-10.2); Carbon Dioxide 23 mmol/L (22-30); Chloride 113 mmol/L (98-107); Estimated CRCL calculation 28 ml/min; Estimated Glomerular Filt Rate 60; Glucose 91 mg/dL (65-110); Potassium 3.3 mmol/L (3.4-5.0); Sodium 143 mmol/L (137-145)
[2023-08-23 07:20] LABS: Blood Urea Nitrogen < 2 mg/dL (7-17)
[2023-08-23 08:00] VITALS: BP 154/60; PULSE 87; RESP 16; TEMP 36.3; O2SAT 95
[2023-08-23 08:01] LABS: Glucose Point of Care 90 mg/dl (65-105)
--- NOTE | 2023-08-23 09:59 | PC.NURSE ---
Attempted to wake patient on several attempts to take morning medications; patient refuses, wants to take a nap. Will make another attempt at later time today.
--- NOTE | 2023-08-23 10:36 | PM.CNPUL ---
Assessment and Plan Assessment and plan (1) Diverticulitis of colon with perforation: Code(s): K57.20 - Diverticulitis of large intestine with perforation and abscess without bleeding Status: Acute (2) Dementia: Qualifiers: Dementia type: unspecified type Dementia severity: mild Dementia behavioral or psychological symptom: without behavioral, psychotic, or mood disturbance or anxiety Qualified Code(s): F03.A0 - Unspecified dementia, mild, without behavioral disturbance, psychotic disturbance, mood disturbance, and anxiety Code(s): F03.90 - Unspecified dementia, unspecified severity, without behavioral disturbance, psychotic disturbance, mood disturbance, and anxiety Status: Chronic (3) Altered mental status: Qualifiers: Altered mental status type: disorientation Qualified Code(s): R41.0 - Disorientation, unspecified Code(s): R41.82 - Altered mental status, unspecified Status: Resolved (4) Generalized weakness: Code(s): R53.1 - Weakness Status: Acute (5) COPD (chronic obstructive pulmonary disease): Qualifiers: COPD type: unspecified COPD Qualified Code(s): J44.9 - Chronic obstructive pulmonary disease, unspecified Code(s): J44.9 - Chronic obstructive pulmonary disease, unspecified Status: Chronic (6) Diabetes mellitus: Qualifiers: Diabetes mellitus type: type 2 Diabetes mellitus [facility] insulin use: with intermediate project manager use Diabetes mellitus complication status: without complication Qualified Code(s): E11.9 - Type 2 diabetes mellitus without complications; Z79.4 - jail (current) use of insulin Code(s): E11.9 - Type 2 diabetes mellitus without complications Status: Chronic (7) Pleural effusion: Code(s): J90 - Pleural effusion, not elsewhere classified Status: Acute Assessment and Plan: An 83-year-old female patient with a history of dementia, diabetes mellitus, and possible COPD (managed with a rescue albuterol inhaler), who resides in a custodial, was admitted due to acute changes in her mental status. During her hospital stay, diagnostic tests revealed perforated sigmoid diverticulitis, resulting in ascites and a new left-sided pleural effusion. The patient has been receiving antibiotic treatment and shows no signs of sepsis. The surgical team is monitoring the patient, but given her age and multiple health conditions, the treatment for her perforated colon is conservative. The patient's pleural effusion is a new development and is likely related to her intra-abdominal condition, such as ascites or a subdiaphragmatic abscess. Although it's not common, a pleural effusion can occur after a sigmoid colon perforation due to the spread of infection or inflammation from the abdominal cavity to the chest cavity via the diaphragm, which separates these two cavities. This is more likely in cases of subdiaphragmatic abscess formation or widespread peritonitis. The possibility that the pleural effusion is due to other causes, such as a pulmonary embolism, is less likely. This is because the patient had been on a direct anticoagulant before this admission and her INR was prolonged on initial evaluation. The simultaneous development of the pleural effusion and ascites also supports the idea that an intra-abdominal pathology is the underlying cause. The effusion is relatively small, and the patient has not experienced any respiratory issues related to it. The plan is to continue monitoring the size of the pleural effusion. There is no need for further diagnostic workup for the pleural effusion, apart from ruling out lower extremity deep vein thrombosis via ultrasound. At this point, we should consider DVT prophylaxis. We will continue to follow up with the patient's condition. History of Present Illness History of Present Illness Consult date: 08/23/23 Chief complaint: UTI, Acute Kidney Injury, Hypokalemia
[2023-08-23 12:13] LABS: Glucose Point of Care 77 mg/dl (65-105)
--- NOTE | 2023-08-23 14:03 | PC.NURSE ---
Notified provider of patient continuing to refuse care. Hammerer Tab attempted to obtain ordered bilateral venous doppler, patient refused. Patient continues to refuse PO medications. Unable to give IV medications as patient removed midline IV access.
[2023-08-23] MEDS: ENOXAPARIN 30 MG/0.3 ML SYRINGE SUB-Q (14:53)
--- NOTE | 2023-08-23 14:58 | P.PNIM_ITS ---
Progress Note: A&P Assessment and Plan (1) Altered mental status: Qualifiers: Altered mental status type: disorientation Qualified Code(s): R41.0 - Disorientation, unspecified Code(s): R41.82 - Altered mental status, unspecified Status: Resolved Assessment and Plan: * CT head negative * UTI+ (2) GURPREET (acute kidney injury): Code(s): N17.9 - Acute kidney failure, unspecified Status: Resolved Assessment and Plan: * Cr 0.9, continue to monitor * Monitor electrolytes especially potassium. * Routine follow-up with Nephrology as an outpatient. (3) Generalized weakness: Code(s): R53.1 - Weakness Status: Acute Assessment and Plan: * Secondary to UTI/diverticulitis * PT/OT * recent LT toes amputated at SNF for therapy (4) Acute UTI: Code(s): N39.0 - Urinary tract infection, site not specified Status: Resolved Assessment and Plan: * Urine cultures Proteus Mirabilis * Bactrim course completed * repeat urine negative (5) Abdominal pain: Qualifiers: Abdominal location: generalized Qualified Code(s): R10.84 - Generalized abdominal pain Code(s): R10.9 - Unspecified abdominal pain Status: Acute Assessment and Plan: * repeat CT showed sigmoid diverticulitis with microperforation. Small volume of ascites, worsened from 08/18/2023. Small loculated left pleural effusion, new from 08/18/2023. 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 Persistent mild left hydronephrosis and hydroureter. 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 HS, hypoglycemic protocol * sliding scale insulin-holding * Holding home long-acting (7) COPD (chronic obstructive pulmonary disease): Qualifiers: COPD type: unspecified COPD Qualified Code(s): J44.9 - Chronic obstructive pulmonary disease, unspecified Code(s): J44.9 - Chronic obstructive pulmonary disease, unspecified Status: Chronic Assessment and Plan: * supplemental oxygen PRN * resume home inhaler (8) Hypertension: Qualifiers: Hypertension type: primary hypertension Qualified Code(s): I10 - Essential (primary) hypertension Code(s): I10 - Essential (primary) hypertension Status: Chronic Assessment and Plan: * Stable, con't to monitor * continue home medication (9) Bacteremia: Code(s): R78.81 - Bacteremia Status: Ruled-out Assessment and Plan: * Blood cultures negative * CT abd order reports pain and occult stool positive * CXR negative for acute process (10) Iron deficiency anemia: Qualifiers: Iron deficiency anemia type: inadequate dietary iron intake Qualified Code(s): D50.8 - Other iron deficiency anemias Code(s): D50.9 - Iron deficiency anemia, unspecified Status: Chronic Assessment and Plan: * likely secondary to iron deficiency * poor intake currently * Ferrous sulfate b.i.d. started * Occult stool positive * GI consul
--- NOTE | 2023-08-23 14:58 | PM.IMPN ---
Progress Note: A&P Assessment and Plan (1) Altered mental status: Qualifiers: Altered mental status type: disorientation Qualified Code(s): R41.0 - Disorientation, unspecified Code(s): R41.82 - Altered mental status, unspecified Status: Resolved Assessment and Plan: CT head negative UTI+ (2) GURPREET (acute kidney injury): Code(s): N17.9 - Acute kidney failure, unspecified Status: Resolved Assessment and Plan: Cr 0.9, continue to monitor Monitor electrolytes especially potassium. Routine follow-up with Nephrology as an outpatient. (3) Generalized weakness: Code(s): R53.1 - Weakness Status: Acute Assessment and Plan: Secondary to UTI/diverticulitis PT/OT recent LT toes amputated at SNF for therapy (4) Acute UTI: Code(s): N39.0 - Urinary tract infection, site not specified Status: Resolved Assessment and Plan: Urine cultures Proteus Mirabilis Bactrim course completed repeat urine negative (5) Abdominal pain: Qualifiers: Abdominal location: generalized Qualified Code(s): R10.84 - Generalized abdominal pain Code(s): R10.9 - Unspecified abdominal pain Status: Acute Assessment and Plan: repeat CT showed sigmoid diverticulitis with microperforation. Small volume of ascites, worsened from 08/18/2023. Small loculated left pleural effusion, new from 08/18/2023. 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 Persistent mild left hydronephrosis and hydroureter. general surgery consulted and following tolerating low fiber diet continue Zosyn (6) Diabetes mellitus: Qualifiers: Diabetes mellitus type: type 2 Diabetes mellitus assistant terminal manager insulin use: with assistant terminal manager use Diabetes mellitus complication status: without complication Qualified Code(s): E11.9 - Type 2 diabetes mellitus without complications; Z79.4 - correction (current) use of insulin Code(s): E11.9 - Type 2 diabetes mellitus without complications Status: Chronic Assessment and Plan: Accu-Cheks a.c. HS, hypoglycemic protocol sliding scale insulin-holding Holding home long-acting (7) COPD (chronic obstructive pulmonary disease): Qualifiers: COPD type: unspecified COPD Qualified Code(s): J44.9 - Chronic obstructive pulmonary disease, unspecified Code(s): J44.9 - Chronic obstructive pulmonary disease, unspecified Status: Chronic Assessment and Plan: supplemental oxygen PRN resume home inhaler (8) Hypertension: Qualifiers: Hypertension type: primary hypertension Qualified Code(s): I10 - Essential (primary) hypertension Code(s): I10 - Essential (primary) hypertension Status: Chronic Assessment and Plan: Stable, con't to monitor continue home medication (9) Bacteremia: Code(s): R78.81 - Bacteremia Status: Ruled-out Assessment and Plan: Blood cultures negative CT abd order reports pain and occult stool positive CXR negative for acute process (10) Iron deficiency anemia: Qualifiers: Iron deficiency anemia type: inadequate dietary iron intake Qualified Code(s): D50.8 - Other iron deficiency anemias Code(s): D50.9 - Iron deficiency anemia, unspecified Status: Chronic Assessment and Plan: likely secondary to iron deficiency poor intake currently Ferrous sulfate b.i.d. started Occult stool positive GI consulted -refused colonoscopy - continue to monitor (11) Diverticulitis of colon with perforation: Code(s): K57.20 - Diverticulitis of large intestine with perforation and abscess without bleeding Status: Acute Assessment and Plan: as shown on CT A/pelvis Continue Zosyn IV for total 7 days then transition to PO AB for 7 days (concern for compliance) tolerating low fiber diet surgery consulted - conservative management repeat CTA 08/04
--- NOTE | 2023-08-23 15:40 | PCOTNOTE ---
Attempted to see pt for Occupational Therapy treatment. Pt will partly open eyes and states what when therapist said pt's name. Therapist would educate pt on participating in therapy, however, pt would keep eyes close and would not respond to therapist despite both verbal/tactile cues. Per RN, pt is refusing all medication and testing. Will continue per poc duration/frequency tomorrow.
[2023-08-23 16:00] VITALS: BP 130/50; PULSE 96; RESP 16; TEMP 36.2; O2SAT 100
[2023-08-23 17:09] LABS: Glucose Point of Care 80 mg/dl (65-105)
--- NOTE | 2023-08-23 19:23 | PC.NURSE ---
Attempted to give patient PO medications with pudding at 1845; patient spit medications out into her hand, refused to finish taking medications.
[2023-08-23 20:51] VITALS: BP 129/41; PULSE 83; RESP 14; TEMP 36.5; O2SAT 93
[2023-08-23 21:08] VITALS: O2SAT 93
[2023-08-23 22:46] LABS: Glucose Point of Care 76 mg/dl (65-105)
[2023-08-24] VITALS (8 sets, daily range): BP systolic 110–132; BP diastolic 45–62; PULSE 64–86; RESP 14–20; TEMP 36–36.6; O2SAT 90–98
[2023-08-24 05:22] LABS: Basophils Percent Auto 0.7 % (0.2-1.2); Eosinophils Absolute Auto 0.1 K/mm3 (0-0.3); Eosinophils Percent Auto 2.6 % (0-4.4); Hematocrit 30.8 % (37.0-47.0); Hemoglobin 8.8 g/dL (12.0-15.0); Immature Granulocyte Absolute 0.03 K/mm3 (0.00-0.031); Immature Granulocyte Percent A 0.6 % (0-0.5); Lymphocytes Absolute Auto 1.71 K/mm3 (0.9-3.2); Lymphocytes Percent Auto 31.8 % (18.3-44.2); Mean Corpuscular HGB Conc 28.6 g/dl (32-36); Mean Corpuscular Hemoglobin 27.8 pg (26-34); Mean Corpuscular Volume 97.5 fl (80-100); Mean Platelet Volume 9.3 fl (7.4-10.4); Monocytes Absolute Auto 0.3 K/mm3 (0.1-0.6); Monocytes Percent Auto 6.3 % (2.6-8.5); Neutrophils Absolute Auto 3.1 K/mm3 (1.3-6.7); Platelet Count Result 282 k/mm3 (150-375); Red Blood Count 3.16 M/mm3 (4.2-5.4); White Blood Count 5.4 K/mm3 (4.5-10.0)
[2023-08-24 05:40] LABS: Anion Gap 8 mmol/L (8-16); Blood Urea Nitrogen 5 mg/dL (7-17); Calcium 8.3 mg/dL (8.4-10.2); Carbon Dioxide 25 mmol/L (22-30); Chloride 112 mmol/L (98-107); Estimated CRCL calculation 25 ml/min; Estimated Glomerular Filt Rate 53; Glucose 73 mg/dL (65-110); Potassium 3.2 mmol/L (3.4-5.0); Sodium 145 mmol/L (137-145)
[2023-08-24] MEDS: PIPERACILLIN/TAZ 2.25G/NS 50ML 2.25 GM/50 ML BAG IVPB ×3 (05:56→18:38)
[2023-08-24 06:33] LABS: Crenated RBC 2+ (NORMAL); Ovalocytes 2+ (NORMAL); Platelet Estimate Adequate (Adequate); Schistocytes None Seen (NORMAL)
[2023-08-24 08:40] LABS: Glucose Point of Care 143 mg/dl (65-105)
[2023-08-24] MEDS: MIRTAZAPINE 15 MG TABLET PO (10:11)
[2023-08-24] MEDS: LOSARTAN POTASSIUM 50 MG TABLET 100 MG PO (10:11)
[2023-08-24] MEDS: FAMOTIDINE 20 MG TABLET PO ×2 (10:12→20:28)
[2023-08-24] MEDS: ATORVASTATIN 10 MG TABLET PO (10:12)
[2023-08-24] MEDS: amLODIPine BESYLATE 5 MG TABLET 10 MG PO (10:12)
[2023-08-24] MEDS: hydrOXYzine HCL 10 MG TABLET PO (10:12)
[2023-08-24] MEDS: FUROSEMIDE 20 MG TABLET PO (10:12)
[2023-08-24] MEDS: CHOLECALCIFEROL 1,000 UNITS TABLET 1000 UNITS PO (10:12)
[2023-08-24] MEDS: FERROUS SULFATE 325 MG TABLET DR PO (10:12)
--- NOTE | 2023-08-24 10:38 | PM.PNPUL ---
Progress Note: A&P Assessment and Plan (1) Pleural effusion: Code(s): J90 - Pleural effusion, not elsewhere classified Status: Acute Assessment and Plan: An 83-year-old female patient with a history of dementia, diabetes mellitus, and possible COPD (managed with a rescue albuterol inhaler), who [facility] a [facility], was admitted due to acute changes in her mental status. During her hospital stay, diagnostic tests revealed perforated sigmoid diverticulitis, resulting in ascites and a new left-sided pleural effusion. The patient has been receiving antibiotic treatment and shows no signs of sepsis. The surgical team is monitoring the patient, but given her age and multiple health conditions, the treatment for her perforated colon is conservative. The patient's pleural effusion is a new development and is likely related to her intra-abdominal condition, such as ascites or a subdiaphragmatic abscess. Although it's not common, a pleural effusion can occur after a sigmoid colon perforation due to the spread of infection or inflammation from the abdominal cavity to the chest cavity via the diaphragm. The possibility that the pleural effusion is due to other causes, such as a pulmonary embolism, is less likely. This is because the patient had been on a direct anticoagulant before this admission and her INR was prolonged on initial evaluation. The simultaneous development of the pleural effusion and ascites also supports the idea that an intra-abdominal pathology is the underlying cause. The effusion last chest imaging study was small. Over the last 24 hours patient has been on supplemental oxygen because of hypoxemia. It is possible that pleural effusion has increased in size. Patient does not look septic and the white cell count is within normal range. Plan: Will repeat chest x-ray in a.m.. Continue to monitor respiratory status. Lower extremities study to rule out DVT pending. (2) Diverticulitis of colon with perforation: Code(s): K57.20 - Diverticulitis of large intestine with perforation and abscess without bleeding Status: Acute (3) Dementia: Qualifiers: Dementia type: unspecified type Dementia severity: mild Dementia behavioral or psychological symptom: without behavioral, psychotic, or mood disturbance or anxiety Qualified Code(s): F03.A0 - Unspecified dementia, mild, without behavioral disturbance, psychotic disturbance, mood disturbance, and anxiety Code(s): F03.90 - Unspecified dementia, unspecified severity, without behavioral disturbance, psychotic disturbance, mood disturbance, and anxiety Status: Chronic (4) COPD (chronic obstructive pulmonary disease): Qualifiers: COPD type: unspecified COPD Qualified Code(s): J44.9 - Chronic obstructive pulmonary disease, unspecified Code(s): J44.9 - Chronic obstructive pulmonary disease, unspecified Status: Chronic (5) Diabetes mellitus: Qualifiers: Diabetes mellitus type: type 2 Diabetes mellitus half-way insulin use: with half-way use Diabetes mellitus complication status: without complication Qualified Code(s): E11.9 - Type 2 diabetes mellitus without complications; 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 O2 saturation decreased over last 24 hours, currently on supplemental oxygen 2 liters/minute. She remains hemodynamically stable. Review of Systems Review of Systems: All systems reviewed & are unremarkable except as noted in HPI and below (HPI and below) Exam Narrative: GENERAL APPEARANCE: Well developed, elderly female looking chronically ill, appears somnolent but opening eyes and answering simple questions to verbal commands SKIN: Inspection of the skin reveals no rashes, ulcerations o
[2023-08-24 12:15] LABS: Glucose Point of Care 224 mg/dl (65-105)
[2023-08-24] MEDS: ENOXAPARIN 30 MG/0.3 ML SYRINGE SUB-Q (12:58)
--- NOTE | 2023-08-24 15:10 | P.PNIM_ITS ---
Progress Note: A&P Assessment and Plan (1) Altered mental status: Qualifiers: Altered mental status type: disorientation Qualified Code(s): R41.0 - Disorientation, unspecified Code(s): R41.82 - Altered mental status, unspecified Status: Resolved Assessment and Plan: * CT head negative * UTI+ (2) GURPREET (acute kidney injury): Code(s): N17.9 - Acute kidney failure, unspecified Status: Resolved Assessment and Plan: * Cr 0.9, continue to monitor * Monitor electrolytes especially potassium. * Routine follow-up with Nephrology as an outpatient. (3) Generalized weakness: Code(s): R53.1 - Weakness Status: Acute Assessment and Plan: * Secondary to UTI/diverticulitis * PT/OT * recent LT toes amputated at SNF for therapy (4) Acute UTI: Code(s): N39.0 - Urinary tract infection, site not specified Status: Resolved Assessment and Plan: * Urine cultures Proteus Mirabilis * Bactrim course completed * repeat urine negative (5) Abdominal pain: Qualifiers: Abdominal location: generalized Qualified Code(s): R10.84 - Generalized abdominal pain Code(s): R10.9 - Unspecified abdominal pain Status: Acute Assessment and Plan: * repeat CT showed sigmoid diverticulitis with microperforation. Small volume of ascites, worsened from 08/18/2023. Small loculated left pleural effusion, new from 08/18/2023. 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 Persistent mild left hydronephrosis and hydroureter. * general surgery consulted and following * tolerating low fiber diet * continue Zosyn, transition to PO tomorrow after 7 days (6) Diabetes mellitus: Qualifiers: Diabetes mellitus type: type 2 Diabetes mellitus director long term care insulin use: with director long term care use Diabetes mellitus complication status: without complication Qualified Code(s): E11.9 - Type 2 diabetes mellitus without complications; Z79.4 - senior living (current) use of insulin Code(s): E11.9 - Type 2 diabetes mellitus without complications Status: Chronic Assessment and Plan: * Accu-Cheks a.c. HS, hypoglycemic protocol * sliding scale insulin-holding * Holding home long-acting (7) COPD (chronic obstructive pulmonary disease): Qualifiers: COPD type: unspecified COPD Qualified Code(s): J44.9 - Chronic obstructive pulmonary disease, unspecified Code(s): J44.9 - Chronic obstructive pulmonary disease, unspecified Status: Chronic Assessment and Plan: * resume home inhaler * now requiring supplemental oxygen * pulmonology following - repeat CXR in am (8) Hypertension: Qualifiers: Hypertension type: primary hypertension Qualified Code(s): I10 - Essential (primary) hypertension Code(s): I10 - Essential (primary) hypertension Status: Chronic Assessment and Plan: * Stable, con't to monitor * continue home medication (9) Bacteremia: Code(s): R78.81 - Bacteremia Status: Ruled-out Assessment and Plan: * Blood cultures negative * CT abd order reports pain and occult stool positive * CXR negative for acute process (10) Iron deficiency anemia: Qualifiers: Iron deficiency anemia type: inadequate dietary iron intake Qualified Code(s): D50.8 - Other iron deficiency anemias Code(s): D50.9 - Iron deficiency anemia, unspecified Status: Chronic Assessment and Plan: * likely secondary to iron deficiency * poor in
--- NOTE | 2023-08-24 15:10 | PM.IMPN ---
Progress Note: A&P Assessment and Plan (1) Altered mental status: Qualifiers: Altered mental status type: disorientation Qualified Code(s): R41.0 - Disorientation, unspecified Code(s): R41.82 - Altered mental status, unspecified Status: Resolved Assessment and Plan: CT head negative UTI+ (2) GURPREET (acute kidney injury): Code(s): N17.9 - Acute kidney failure, unspecified Status: Resolved Assessment and Plan: Cr 0.9, continue to monitor Monitor electrolytes especially potassium. Routine follow-up with Nephrology as an outpatient. (3) Generalized weakness: Code(s): R53.1 - Weakness Status: Acute Assessment and Plan: Secondary to UTI/diverticulitis PT/OT recent LT toes amputated at SNF for therapy (4) Acute UTI: Code(s): N39.0 - Urinary tract infection, site not specified Status: Resolved Assessment and Plan: Urine cultures Proteus Mirabilis Bactrim course completed repeat urine negative (5) Abdominal pain: Qualifiers: Abdominal location: generalized Qualified Code(s): R10.84 - Generalized abdominal pain Code(s): R10.9 - Unspecified abdominal pain Status: Acute Assessment and Plan: repeat CT showed sigmoid diverticulitis with microperforation. Small volume of ascites, worsened from 08/18/2023. Small loculated left pleural effusion, new from 08/18/2023. 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 Persistent mild left hydronephrosis and hydroureter. 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 HS, hypoglycemic protocol sliding scale insulin-holding Holding home long-acting (7) COPD (chronic obstructive pulmonary disease): Qualifiers: COPD type: unspecified COPD Qualified Code(s): J44.9 - Chronic obstructive pulmonary disease, unspecified Code(s): J44.9 - Chronic obstructive pulmonary disease, unspecified Status: Chronic Assessment and Plan: resume home inhaler now requiring supplemental oxygen pulmonology following - repeat CXR in am (8) Hypertension: Qualifiers: Hypertension type: primary hypertension Qualified Code(s): I10 - Essential (primary) hypertension Code(s): I10 - Essential (primary) hypertension Status: Chronic Assessment and Plan: Stable, con't to monitor continue home medication (9) Bacteremia: Code(s): R78.81 - Bacteremia Status: Ruled-out Assessment and Plan: Blood cultures negative CT abd order reports pain and occult stool positive CXR negative for acute process (10) Iron deficiency anemia: Qualifiers: Iron deficiency anemia type: inadequate dietary iron intake Qualified Code(s): D50.8 - Other iron deficiency anemias Code(s): D50.9 - Iron deficiency anemia, unspecified Status: Chronic Assessment and Plan: likely secondary to iron deficiency poor intake currently Ferrous sulfate b.i.d. started Occult stool positive GI consulted -refused colonoscopy - continue to monitor (11) Diverticulitis of colon with perforation: Code(s): K57.20 - Diverticulitis of large intestine with perforation and abscess without bleeding Status: Acute Assessment and Plan: as shown on CT A/pelvis Continue Zosyn IV for total 7 days then transition to PO AB for 7 days (concern for complian
[2023-08-24] MEDS: POTASSIUM CHLORIDE INJ 40 MEQ in SODIUM CHLORIDE 0.9% IV 500 ML 90 MEQ IVPB (17:09)
[2023-08-24 17:15] LABS: Glucose Point of Care 236 mg/dl (65-105)
[2023-08-24] MEDS: INSULIN ASPART (*BKC) 100 UNITS/ML SUB-Q (18:37)
[2023-08-24 21:25] LABS: Glucose Point of Care 185 mg/dl (65-105)
[2023-08-25] VITALS (10 sets, daily range): BP systolic 121–148; BP diastolic 49–74; PULSE 72–96; RESP 14–20; TEMP 36.1–36.6; O2SAT 91–100
[2023-08-25] MEDS: PIPERACILLIN/TAZ 2.25G/NS 50ML 2.25 GM/50 ML BAG IVPB (00:25)
[2023-08-25 05:02] LABS: Basophils Percent Auto 0.5 % (0.2-1.2); Eosinophils Absolute Auto 0.2 K/mm3 (0-0.3); Eosinophils Percent Auto 4.1 % (0-4.4); Hematocrit 30.7 % (37.0-47.0); Immature Granulocyte Absolute 0.04 K/mm3 (0.00-0.031); Immature Granulocyte Percent A 0.7 % (0-0.5); Lymphocytes Absolute Auto 1.13 K/mm3 (0.9-3.2); Mean Corpuscular HGB Conc 29.3 g/dl (32-36); Mean Corpuscular Hemoglobin 27.2 pg (26-34); Mean Corpuscular Volume 92.7 fl (80-100); Mean Platelet Volume 9.1 fl (7.4-10.4); Monocytes Absolute Auto 0.3 K/mm3 (0.1-0.6); Neutrophils Absolute Auto 3.9 K/mm3 (1.3-6.7); Neutrophils Percent Auto 68.7 % (45.5-73.1); Platelet Count Result 277 k/mm3 (150-375); Red Blood Count 3.31 M/mm3 (4.2-5.4); Red Cell Distribution Width 15.1 % (11.5-14.5); White Blood Count 5.6 K/mm3 (4.5-10.0)
[2023-08-25 05:12] LABS: Anion Gap 4 mmol/L (8-16); Blood Urea Nitrogen 6 mg/dL (7-17); Calcium 8.2 mg/dL (8.4-10.2); Carbon Dioxide 31 mmol/L (22-30); Chloride 110 mmol/L (98-107); Estimated CRCL calculation 28 ml/min; Estimated Glomerular Filt Rate 60; Glucose 209 mg/dL (65-110); Potassium 4.1 mmol/L (3.4-5.0); Sodium 145 mmol/L (137-145)
[2023-08-25] MEDS: LEVOTHYROXINE SODIUM 75 MCG TABLET PO (05:24)
[2023-08-25 07:14] LABS: Anisocytosis 1+ (NORMAL); Hypochromasia 1+ (NORMAL); Platelet Estimate Adequate (Adequate); Schistocytes None Seen (NORMAL)
[2023-08-25 08:30] LABS: Glucose Point of Care 164 mg/dl (65-105)
[2023-08-25] MEDS: MIRTAZAPINE 15 MG TABLET PO (09:13)
[2023-08-25] MEDS: AMOXICILLIN/CLAVULANATE K 875-125 MG TAB 1 TABLET PO ×2 (09:13→20:03)
[2023-08-25] MEDS: FUROSEMIDE 20 MG TABLET PO (09:13)
[2023-08-25] MEDS: hydrOXYzine HCL 10 MG TABLET PO (09:13)
[2023-08-25] MEDS: amLODIPine BESYLATE 5 MG TABLET 10 MG PO (09:13)
[2023-08-25] MEDS: FAMOTIDINE 20 MG TABLET PO ×2 (09:13→20:03)
[2023-08-25] MEDS: ATORVASTATIN 10 MG TABLET PO (09:13)
[2023-08-25] MEDS: ENOXAPARIN 30 MG/0.3 ML SYRINGE SUB-Q (09:13)
[2023-08-25] MEDS: LOSARTAN POTASSIUM 50 MG TABLET 100 MG PO (09:13)
[2023-08-25] MEDS: FERROUS SULFATE 325 MG TABLET DR PO ×2 (09:13→17:28)
[2023-08-25] MEDS: CHOLECALCIFEROL 1,000 UNITS TABLET 1000 UNITS PO (09:13)
[2023-08-25 11:49] LABS: Glucose Point of Care 125 mg/dl (65-105)
--- NOTE | 2023-08-25 12:53 | PM.PNPUL ---
Progress Note: A&P Assessment and Plan (1) Pleural effusion: Code(s): J90 - Pleural effusion, not elsewhere classified Status: Acute Assessment and Plan: An 83-year-old female patient with a history of dementia, diabetes mellitus, and possible COPD (managed with a rescue albuterol inhaler), who [facility] a [facility], was admitted due to acute changes in her mental status. During her hospital stay, diagnostic tests revealed perforated sigmoid diverticulitis, resulting in ascites and a new left-sided pleural effusion. The patient has been receiving antibiotic treatment and shows no signs of sepsis. The surgical team is monitoring the patient, but given her age and multiple health conditions, the treatment for her perforated colon is conservative. The patient's pleural effusion is a new development and is likely related to her intra-abdominal condition, such as ascites or a subdiaphragmatic abscess. Although it's not common, a pleural effusion can occur after a sigmoid colon perforation due to the spread of infection or inflammation from the abdominal cavity to the chest cavity via the diaphragm. The possibility that the pleural effusion is due to other causes, such as a pulmonary embolism, is less likely. This is because the patient had been on a direct anticoagulant before this admission and her INR was prolonged on initial evaluation. The simultaneous development of the pleural effusion and ascites also supports the idea that an intra-abdominal pathology is the underlying cause. The effusion last chest imaging study was small. Over the last 24 hours patient has been on supplemental oxygen because of hypoxemia. It is possible that pleural effusion has increased in size. Patient does not look septic and the white cell count is within normal range. 08/24/23: Plan: Will repeat chest x-ray in a.m.. Continue to monitor respiratory status. Lower extremities study to rule out DVT pending. 08/25/23: The patient tells me her name but states she is in a prison. She states her breathing is normal with no cough or phlegm production. When I entered the room she was on room air with saturations 83%. I placed her on 1 L nasal cannula and she said she wanted this taken off but I told her she knee requires this. Her saturations were 92% on 1 L. White blood cell count 5.6, creatinine 0.9, chest x-ray with clear lungs and no pleural effusions. Lower extremity Dopplers negative for DVT Plan: Patient's oxygenation is improving and now down to 1 L. Chest x-ray shows no significant pleural effusions. From a pulmonary perspective patient does not require antibiotics. patient has been changed to Augmentin for diverticulitis. If patient is discharged home she should have a formal home O2 assessment prior to discharge charge. If she is discharged to a facility oxygen at rest and with ambulation per facilities protocol. Continue albuterol p.r.n. for possible COPD. Discussed with Payal Velazquez, no specific pulmonary follow-up required, will sign off, call with questions. Subjective Date/time seen: 08/25/23 12:53 Interval history: new Consult date: 08/23/23 Chief complaint: UTI, Acute Kidney Injury, Hypokalemia Narrative: This consultation pertains to a new case of pleural effusion. The patient is currently somnolent and unable to provide details about her condition. The information in this report has been gathered from the patient's electronic medical records. The patient was transported to the emergency department from a local [facility] facility approximately 10 days ago due to lethargy and acute changes in mental status. She also exhibited abdominal pain upon palpation. She did not report symptoms of shortness of breath, chest pain, palpitations, fever, or chills. An initial chest x-ray did not reveal any active lung disease; however, a complete blood count (CBC) indicated leukocytosis. The patient was initially treated with IV Roceph
--- NOTE | 2023-08-25 14:29 | P.PNIM_ITS ---
Progress Note: A&P Assessment and Plan (1) Altered mental status: Qualifiers: Altered mental status type: disorientation Qualified Code(s): R41.0 - Disorientation, unspecified Code(s): R41.82 - Altered mental status, unspecified Status: Resolved Assessment and Plan: * CT head negative * UTI+ (2) GURPREET (acute kidney injury): Code(s): N17.9 - Acute kidney failure, unspecified Status: Resolved Assessment and Plan: * Cr 0.9, continue to monitor * Monitor electrolytes especially potassium. * Routine follow-up with Nephrology as an outpatient. (3) Generalized weakness: Code(s): R53.1 - Weakness Status: Acute Assessment and Plan: * Secondary to UTI/diverticulitis * PT/OT * recent LT toes amputated at SNF for therapy (4) Acute UTI: Code(s): N39.0 - Urinary tract infection, site not specified Status: Resolved Assessment and Plan: * Urine cultures Proteus Mirabilis * Bactrim course completed * repeat urine negative (5) Abdominal pain: Qualifiers: Abdominal location: generalized Qualified Code(s): R10.84 - Generalized abdominal pain Code(s): R10.9 - Unspecified abdominal pain Status: Acute Assessment and Plan: * repeat CT showed sigmoid diverticulitis with microperforation. Small volume of ascites, worsened from 08/18/2023. Small loculated left pleural effusion, new from 08/18/2023. 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 Persistent mild left hydronephrosis and hydroureter. 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 HS, hypoglycemic protocol * sliding scale insulin-holding * Holding home long-acting (7) COPD (chronic obstructive pulmonary disease): Qualifiers: COPD type: unspecified COPD Qualified Code(s): J44.9 - Chronic obstructive pulmonary disease, unspecified Code(s): J44.9 - Chronic obstructive pulmonary disease, unspecified Status: Chronic Assessment and Plan: * resume home inhaler * now requiring supplemental oxygen at 2L, likely will need to continue at d/c * pulmonology following - repeat CXR showed no significant pleural effusions (8) Hypertension: Qualifiers: Hypertension type: primary hypertension Qualified Code(s): I10 - Essential (primary) hypertension Code(s): I10 - Essential (primary) hypertension Status: Chronic Assessment and Plan: * Stable, con't to monitor * continue home medication (9) Bacteremia: Code(s): R78.81 - Bacteremia Status: Ruled-out Assessment and Plan: * Blood cultures negative * CT abd order reports pain and occult stool positive * CXR negative for acute process (10) Iron deficiency anemia: Qualifiers: Iron deficiency anemia type: inadequate dietary iron intake Qualified Code(s): D50.8 - Other iron deficiency anemias Code(s): D50.9 - Iron deficiency anemia, unspecified Status: Chronic Assessment a
--- NOTE | 2023-08-25 14:29 | PM.IMPN ---
Progress Note: A&P Assessment and Plan (1) Altered mental status: Qualifiers: Altered mental status type: disorientation Qualified Code(s): R41.0 - Disorientation, unspecified Code(s): R41.82 - Altered mental status, unspecified Status: Resolved Assessment and Plan: CT head negative UTI+ (2) GURPREET (acute kidney injury): Code(s): N17.9 - Acute kidney failure, unspecified Status: Resolved Assessment and Plan: Cr 0.9, continue to monitor Monitor electrolytes especially potassium. Routine follow-up with Nephrology as an outpatient. (3) Generalized weakness: Code(s): R53.1 - Weakness Status: Acute Assessment and Plan: Secondary to UTI/diverticulitis PT/OT recent LT toes amputated at SNF for therapy (4) Acute UTI: Code(s): N39.0 - Urinary tract infection, site not specified Status: Resolved Assessment and Plan: Urine cultures Proteus Mirabilis Bactrim course completed repeat urine negative (5) Abdominal pain: Qualifiers: Abdominal location: generalized Qualified Code(s): R10.84 - Generalized abdominal pain Code(s): R10.9 - Unspecified abdominal pain Status: Acute Assessment and Plan: repeat CT showed sigmoid diverticulitis with microperforation. Small volume of ascites, worsened from 08/18/2023. Small loculated left pleural effusion, new from 08/18/2023. 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 Persistent mild left hydronephrosis and hydroureter. general surgery consulted and following tolerating low fiber diet Transitioned to PO Augmentin for additional 7 days (6) Diabetes mellitus: Qualifiers: Diabetes mellitus type: type 2 Diabetes mellitus half-way insulin use: with half-way use Diabetes mellitus complication status: without complication Qualified Code(s): E11.9 - Type 2 diabetes mellitus without complications; Z79.4 - [facility] (current) use of insulin Code(s): E11.9 - Type 2 diabetes mellitus without complications Status: Chronic Assessment and Plan: Accu-Cheks a.c. HS, hypoglycemic protocol sliding scale insulin-holding Holding home long-acting (7) COPD (chronic obstructive pulmonary disease): Qualifiers: COPD type: unspecified COPD Qualified Code(s): J44.9 - Chronic obstructive pulmonary disease, unspecified Code(s): J44.9 - Chronic obstructive pulmonary disease, unspecified Status: Chronic Assessment and Plan: resume home inhaler now requiring supplemental oxygen at 2L, likely will need to continue at d/c pulmonology following - repeat CXR showed no significant pleural effusions (8) Hypertension: Qualifiers: Hypertension type: primary hypertension Qualified Code(s): I10 - Essential (primary) hypertension Code(s): I10 - Essential (primary) hypertension Status: Chronic Assessment and Plan: Stable, con't to monitor continue home medication (9) Bacteremia: Code(s): R78.81 - Bacteremia Status: Ruled-out Assessment and Plan: Blood cultures negative CT abd order reports pain and occult stool positive CXR negative for acute process (10) Iron deficiency anemia: Qualifiers: Iron deficiency anemia type: inadequate dietary iron intake Qualified Code(s): D50.8 - Other iron deficiency anemias Code(s): D50.9 - Iron deficiency anemia, unspecified Status: Chronic Assessment and Plan: likely secondary to iron deficiency poor intake currently Ferrous sulfate b.i.d. started Occult stool positive GI consulted -refused colonoscopy - continue to monitor (11) Diverticulitis of colon with perforation: Code(s): K57.20 - Diverticulitis of large intestine with perforation and abscess without bleeding Status: Acute Assessment and Plan: as shown on CT A/pelvis Transitioned to PO
[2023-08-25 16:11] LABS: Glucose Point of Care 128 mg/dl (65-105)
[2023-08-25 21:37] LABS: Glucose Point of Care 134 mg/dl (65-105)
[2023-08-26] VITALS: BP 128/45; PULSE 74; RESP 20; TEMP 36.3; O2SAT 94
[2023-08-26 04:00] VITALS: BP 120/49; PULSE 78; RESP 20; TEMP 36.1; O2SAT 97
[2023-08-26 05:39] LABS: Basophils Percent Auto 0.6 % (0.2-1.2); Eosinophils Absolute Auto 0.4 K/mm3 (0-0.3); Eosinophils Percent Auto 7.3 % (0-4.4); Hemoglobin 8.8 g/dL (12.0-15.0); Immature Granulocyte Absolute 0.02 K/mm3 (0.00-0.031); Immature Granulocyte Percent A 0.4 % (0-0.5); Lymphocytes Absolute Auto 1.48 K/mm3 (0.9-3.2); Lymphocytes Percent Auto 28.2 % (18.3-44.2); Mean Corpuscular HGB Conc 30.3 g/dl (32-36); Mean Corpuscular Hemoglobin 27.8 pg (26-34); Mean Corpuscular Volume 91.5 fl (80-100); Mean Platelet Volume 9.3 fl (7.4-10.4); Monocytes Absolute Auto 0.5 K/mm3 (0.1-0.6); Monocytes Percent Auto 9.2 % (2.6-8.5); Neutrophils Absolute Auto 2.9 K/mm3 (1.3-6.7); Neutrophils Percent Auto 54.3 % (45.5-73.1); Platelet Count Result 270 k/mm3 (150-375); Red Blood Count 3.17 M/mm3 (4.2-5.4); White Blood Count 5.2 K/mm3 (4.5-10.0)
[2023-08-26 05:50] LABS: Anion Gap 4 mmol/L (8-16); Blood Urea Nitrogen 5 mg/dL (7-17); Calcium 8.4 mg/dL (8.4-10.2); Carbon Dioxide 32 mmol/L (22-30); Chloride 106 mmol/L (98-107); Estimated CRCL calculation 28 ml/min; Estimated Glomerular Filt Rate 60; Glucose 105 mg/dL (65-110); Potassium 3.4 mmol/L (3.4-5.0); Sodium 142 mmol/L (137-145)
[2023-08-26 07:43] LABS: Glucose Point of Care 94 mg/dl (65-105)
[2023-08-26 09:54] VITALS: BP 132/51; PULSE 70; O2SAT 100
[2023-08-26 10:00] VITALS: O2SAT 100
[2023-08-26] MEDS: LOSARTAN POTASSIUM 50 MG TABLET 100 MG PO (10:04)
[2023-08-26] MEDS: amLODIPine BESYLATE 5 MG TABLET 10 MG PO (10:04)
[2023-08-26] MEDS: AMOXICILLIN/CLAVULANATE K 875-125 MG TAB 1 TABLET PO (10:04)
[2023-08-26] MEDS: MIRTAZAPINE 15 MG TABLET PO (10:04)
[2023-08-26] MEDS: LEVOTHYROXINE SODIUM 75 MCG TABLET PO (10:04)
[2023-08-26] MEDS: FUROSEMIDE 20 MG TABLET PO (10:05)
[2023-08-26] MEDS: ATORVASTATIN 10 MG TABLET PO (10:05)
[2023-08-26] MEDS: hydrOXYzine HCL 10 MG TABLET PO (10:07)
[2023-08-26] MEDS: CHOLECALCIFEROL 1,000 UNITS TABLET 1000 UNITS PO (10:07)
[2023-08-26] MEDS: FAMOTIDINE 20 MG TABLET PO (10:07)
[2023-08-26] MEDS: ENOXAPARIN 30 MG/0.3 ML SYRINGE SUB-Q (10:09)
[2023-08-26 12:00] LABS: Glucose Point of Care 163 mg/dl (65-105)
[2023-08-26 12:58] VITALS: BP 152/52; PULSE 74; RESP 16; TEMP 37; O2SAT 99
--- NOTE | 2023-08-26 14:20 | P.DS_ITS ---
DS: Admitting Diagnosis Discharge Date 08/26/23 Admitting Diagnosis AMS DS: Discharge Diagnosis Discharge Diagnosis (1) Altered mental status: Qualifiers: Altered mental status type: disorientation Qualified Code(s): R41.0 - Disorientation, unspecified Code(s): R41.82 - Altered mental status, unspecified Status: Resolved Assessment and Plan: * CT head negative * UTI+ (2) GURPREET (acute kidney injury): Code(s): N17.9 - Acute kidney failure, unspecified Status: Resolved Assessment and Plan: * Routine follow-up with Nephrology as an outpatient. (3) Generalized weakness: Code(s): R53.1 - Weakness Status: Chronic Assessment and Plan: * recent LT toes amputated at SNF for therapy * PT/OT evaled and d/c (4) Acute UTI: Code(s): N39.0 - Urinary tract infection, site not specified Status: Resolved Assessment and Plan: * Urine cultures Proteus Mirabilis * Bactrim course completed * repeat urine negative (5) Abdominal pain: Qualifiers: Abdominal location: generalized Qualified Code(s): R10.84 - Generalized abdominal pain Code(s): R10.9 - Unspecified abdominal pain Status: Acute Assessment and Plan: * repeat CT showed sigmoid diverticulitis with microperforation. Small volume of ascites, worsened from 08/18/2023. Small loculated left pleural effusion, new from 08/18/2023. 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 Persistent mild left hydronephrosis and hydroureter. 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 service insulin use: with halfway use Diabetes mellitus complication status: without complication Qualified Code(s): E11.9 - Type 2 diabetes mellitus without complications; Z79.4 - keno terminal operator (current) use of insulin Code(s): E11.9 - Type 2 diabetes mellitus without complications Status: Chronic Assessment and Plan: * resume home medication regimen (7) COPD (chronic obstructive pulmonary disease): Qualifiers: COPD type: unspecified COPD Qualified Code(s): J44.9 - Chronic obstructive pulmonary disease, unspecified Code(s): J44.9 - Chronic obstructive pulmonary disease, unspecified Status: Chronic Assessment and Plan: * resume home inhaler * now requiring supplemental oxygen at 2L, likely will need to continue at d/c * pulmonology following - repeat CXR showed no significant pleural effusions (8) Hypertension: Qualifiers: Hypertension type: primary hypertension Qualified Code(s): I10 - Essential (primary) hypertension Code(s): I10 - Essential (primary) hypertension Status: Chronic Assessment and Plan: * continue home medication (9) Bacteremia: Code(s): R78.81 - Bacteremia Status: Ruled-out Assessment and Plan: * Blood cultures negative * CT abd order reports pain and occult stool positive * CXR negative for acute process (10) Iron deficiency anemia: Qualifiers: Iron deficiency anemia type: inadequate dietary iron intake Qualified Code(s): D50.8 - Other iron deficiency anemias Code(s): D50.9 - Iron deficiency anemia, unspecified Status: Chronic Assessment and Plan: * likely secondary to iron deficiency * poor intake currently * continue PO iron supp * Occult stool positive; GI cons
--- NOTE | 2023-08-26 14:20 | PM.DS ---
DS: Admitting Diagnosis Discharge Date 08/26/23 Admitting Diagnosis AMS DS: Discharge Diagnosis Discharge Diagnosis (1) Altered mental status: Qualifiers: Altered mental status type: disorientation Qualified Code(s): R41.0 - Disorientation, unspecified Code(s): R41.82 - Altered mental status, unspecified Status: Resolved Assessment and Plan: CT head negative UTI+ (2) GURPREET (acute kidney injury): Code(s): N17.9 - Acute kidney failure, unspecified Status: Resolved Assessment and Plan: Routine follow-up with Nephrology as an outpatient. (3) Generalized weakness: Code(s): R53.1 - Weakness Status: Chronic Assessment and Plan: recent LT toes amputated at SNF for therapy PT/OT evaled and d/c (4) Acute UTI: Code(s): N39.0 - Urinary tract infection, site not specified Status: Resolved Assessment and Plan: Urine cultures Proteus Mirabilis Bactrim course completed repeat urine negative (5) Abdominal pain: Qualifiers: Abdominal location: generalized Qualified Code(s): R10.84 - Generalized abdominal pain Code(s): R10.9 - Unspecified abdominal pain Status: Acute Assessment and Plan: repeat CT showed sigmoid diverticulitis with microperforation. Small volume of ascites, worsened from 08/18/2023. Small loculated left pleural effusion, new from 08/18/2023. 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 Persistent mild left hydronephrosis and hydroureter. 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 insulin use: with drum stock clerk use Diabetes mellitus complication status: without complication Qualified Code(s): E11.9 - Type 2 diabetes mellitus without complications; Z79.4 - [facility] (current) use of insulin Code(s): E11.9 - Type 2 diabetes mellitus without complications Status: Chronic Assessment and Plan: resume home medication regimen (7) COPD (chronic obstructive pulmonary disease): Qualifiers: COPD type: unspecified COPD Qualified Code(s): J44.9 - Chronic obstructive pulmonary disease, unspecified Code(s): J44.9 - Chronic obstructive pulmonary disease, unspecified Status: Chronic Assessment and Plan: resume home inhaler now requiring supplemental oxygen at 2L, likely will need to continue at d/c pulmonology following - repeat CXR showed no significant pleural effusions (8) Hypertension: Qualifiers: Hypertension type: primary hypertension Qualified Code(s): I10 - Essential (primary) hypertension Code(s): I10 - Essential (primary) hypertension Status: Chronic Assessment and Plan: continue home medication (9) Bacteremia: Code(s): R78.81 - Bacteremia Status: Ruled-out Assessment and Plan: Blood cultures negative CT abd order reports pain and occult stool positive CXR negative for acute process (10) Iron deficiency anemia: Qualifiers: Iron deficiency anemia type: inadequate dietary iron intake Qualified Code(s): D50.8 - Other iron deficiency anemias Code(s): D50.9 - Iron deficiency anemia, unspecified Status: Chronic Assessment and Plan: likely secondary to iron deficiency poor intake currently continue PO iron supp Occult stool positive; GI consulted -refused colonoscopy - continue to monitor follow up outpatient (11) Diverticulitis of colon with perforation: Code(s): K57.20 - Diverticulitis of large intestine with perforation and abscess without bleeding Status: Acute Assessment and Plan: as shown on CT A/pelvis Transitioned to PO Augmentin for 7 days tolerating low fiber diet surgery consulted - conservative management repeat CTA 08/21 showed Sigmoid diverticu
[2023-08-26 14:43] LABS: SARS-CoV-2 RNA PCR Negative (Negative)
== END 2023-08-26 14:45 | DRG 689 ==
LOC: ANHED 08-14 03:27 → ANH2MED 08-14 04:44
PROVIDERS: Nurse Practitioner Family; Surgery; Admitting Provider Internal Medicine; Emergency Provider Emergency Medicine; PCP Hospitalist; Visit Provider Nurse Practitioner
DX: N39.0 Urinary tract infection, site not specified (principal); G93.41 Metabolic encephalopathy; N17.9 Acute kidney failure, unspecified; K57.20 Diverticulitis of large intestine with perforation and abscess without bleeding; E44.0 Moderate protein-calorie malnutrition; Z68.1 Body mass index [BMI] 19.9 or less, adult; J90 Pleural effusion, not elsewhere classified; B96.4 Proteus (mirabilis) (morganii) as the cause of diseases classified elsewhere; I12.9 Hypertensive chronic kidney disease with stage 1 through stage 4 chronic kidney disease, or unspecified chronic kidney disease; I71.40 Abdominal aortic aneurysm, without rupture, unspecified; E11.22 Type 2 diabetes mellitus with diabetic chronic kidney disease; N18.30 Chronic kidney disease, stage 3 unspecified; J44.9 Chronic obstructive pulmonary disease, unspecified; E03.9 Hypothyroidism, unspecified; E87.6 Hypokalemia; M25.561 Pain in right knee; D50.9 Iron deficiency anemia, unspecified; F03.90 Unspecified dementia, unspecified severity, without behavioral disturbance, psychotic disturbance, mood disturbance, and anxiety; Z79.4 Long term (current) use of insulin; Z79.01 Long term (current) use of anticoagulants; Z89.431 Acquired absence of right foot; Z89.422 Acquired absence of other left toe(s); Z87.891 Personal history of nicotine dependence; E86.0 Dehydration
CPT/HCPCS: 36415; 36569; 70450; 71045; 73562; 74176; 80048; 80053; 81001; 82274; 82948; 83540; 83550; 83605; 83735; 84145; 84484; 85025; 85027; 85610; 85730; 87040; 87077; 87086; 87088; 87186; 87635; 87637; 93005; 93970; 96365; 96375; 97161; 97165; 97530; 97535; 99285; A9270; C1751; C9113; G0378; J0696; J1610; J1650; J1815; J2543; J3480; J7030; J7040; J7042

== ENCOUNTER 2024-01-12 19:18 | Emergency (ER) | payer MEDICARE, MEDICAID, SELFPAY ==
--- NOTE | ~2024-01-12 | XR_ITS ---
EXAM: XR pelvis 1-2V DATE: 01/12/2024 20:09 HISTORY: PT FELL OUT OF WHEELCHAIR . COMPARISON: CT abdomen pelvis 08/21/2023. FINDINGS: Leftward rotation. Severely decreased mineralization. No fracture or dislocation. No lytic or blastic lesion. Lumbar degenerative disc disease. The lateral hip osteoarthritis. Osteitis pubis. No erosion or periosteal change. Atherosclerotic vascular calcifications. IMPRESSION: No acute osseous finding in the pelvis. 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
--- NOTE | ~2024-01-12 | CT_ITS ---
EXAMINATION: CT brain wo con DATE: 01/12/2024 20:28 INDICATION: head injury . TECHNIQUE: Computed tomography (CT) of the head was performed without intravenous contrast. The mA wa s adjusted according to patient size. Iterative reconstruction technique was employed. The dose-lengt h product was 681.00 mGy-cm. COMPARISON: 08/13/2023. FINDINGS: No acute intracranial hemorrhage or extra-axial fluid collection. No hydrocephalus, mass, or herniation. No acute ischemic infarct. Unremarkable dural venous sinus attenuation. No acute osseous abnormality. Partially calcified soft tissue nodule over the frontal scalp. The aerated spaces are clear. Moderate atrophy and chronic white matter change. Atherosclerotic intracranial calcification. Bilater al lens replacements. Focal left frontal encephalomalacia. 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 IMPRESSION: No acute intracranial process. 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
--- NOTE | ~2024-01-12 | XR_ITS ---
EXAMINATION: XR chest 1V portable Exam Date/Time: 01/12/2024 20:00 CDT HISTORY: PT FELL OUT OF WHEELCHAIR Comparison: 08/25/2023. RESULT: Lines, tubes, and devices: None. Lungs and pleura: Severe emphysematous change. Cardiomediastinal silhouette: Stable. Other: No acute osseous or upper abdominal finding. Old left lateral sixth rib fracture IMPRESSION: No acute cardiopulmonary process. 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
[2024-01-12 19:20] VITALS: BP 149/78; PULSE 90; RESP 22; TEMP 36.9; O2SAT 95
--- NOTE | 2024-01-12 19:54 | ED.FALL ---
HPI - Fall General Chief Complaint: Fall Stated Complaint: glf 2 hours ago, rt leg lac/hip pain Time Seen by Provider: 01/12/24 19:43 Source: patient and EMS Mode of arrival: EMS History of Present Illness HPI Narrative: 83-year-old female presenting by EMS for fall. She was transitioning from her wheelchair to her bed when she lost balance and fell onto the ground. She is not sure exactly how she fell but does not think she struck her head. She is on Eliquis. Of no has some dementia. She has no complaints of any pain at all. Denies any headache or lightheadedness. No dizziness. Related Data Home Medications Medication Instructions Recorded Confirmed albuterol sulfate 90 mcg/actuation 2 inh inhalation BID PRN Shortness 02/03/20 08/14/23 aerosol inhaler Of Breath aspirin 81 mg tablet,delayed 81 mg PO DAILY 01/21/23 08/14/23 release atorvastatin 10 mg tablet 10 mg PO DAILY 01/21/23 08/14/23 cholecalciferol (vitamin D3) 25 25 mcg PO DAILY 01/21/23 08/14/23 mcg (1,000 unit) capsule (Vitamin D3) hydroxyzine HCl 10 mg tablet 10 mg PO DAILY 01/21/23 08/14/23 insulin glargine 100 unit/mL (3 15 unit subcut HS 01/21/23 08/14/23 mL) subcutaneous pen (Lantus Solostar U-100 Insulin) levothyroxine 75 mcg tablet 75 mcg PO DAILY 01/21/23 08/14/23 losartan 50 mg tablet 100 mg PO DAILY 01/21/23 08/14/23 mirtazapine 15 mg tablet 15 mg PO DAILY 01/21/23 08/14/23 ondansetron HCl 4 mg tablet 4 mg PO DAILY 01/21/23 08/14/23 apixaban 5 mg tablet (Eliquis) 5 mg PO BID 08/14/23 08/14/23 benzocaine 20 %-menthol 0.1 %-zinc 1 ea mucous membrane TID PRN mouth 08/14/23 08/14/23 chloride 0.15 % mucosal gel sores (Orajel 3X Mouth Sores) furosemide 20 mg tablet 20 mg PO DAILY 08/14/23 08/14/23 Allergies Allergy/AdvReac Type Severity Reaction Status Date / Time codeine Allergy Rash Verified 01/21/23 10:56 vancomycin Allergy Difficulty Verified 01/21/23 10:56 Breathing Review of Systems Review of Systems: All systems reviewed & are unremarkable except as noted in HPI and below PMFSH Past Medical History Medical History Abdominal aortic aneurysm Abdominal pain Acute on chronic anemia COPD (chronic obstructive pulmonary disease) Dementia Diabetes mellitus Hypertension Hypothyroid Occult blood in stools Surgical History Surgical History 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 Needed amputation to all 5 toes Family History Family History Sibling Diabetes mellitus Social History Social History Smoking packs per day: 1 Smoking cigarettes per day: 20.0 Years smoked: 50 Smoking pack-years: 50.00 Smoking status: Former smoker Alcohol intake: never Substance use: never Additional living arrangements comments: Currently living at [facility] due to recent toe amputation and needing therapy Occupation/Education: retired Gender identity (if verbalized by the patient): Female Sexual Orientation (if Verbalized by the Patient): Straight or Heterosexual Spiritual care concerns: No Exam Narrative: Constitutional: Generally well appearing, no acute distress Head: Atraumatic, no deformities. Eyes: Pupils equal, round, and reactive to light. Neck: Supple, no tracheal deviation, no JVD. ENMT: Mucous membranes moist Cardiovascular: S1, S2 auscultated. No murmurs, rubs, or gallops. No S3/S4. Normal Distal pulses. No peripheral edema. Respiratory: Lung sounds equal. No wheezes, rales, or rhonchi. Gastrointestinal: Abdomen was soft and non-tender. Non-distended. No rebound or guarding. Genitourinary: Deferred Musculoskeletal: Normal muscle tone and bulk. No obvious deformitie
[2024-01-12 21:04] VITALS: BP 148/78; PULSE 97; RESP 16; O2SAT 96
--- NOTE | 2024-01-12 21:06 | PC.NURSE ---
Attempted to call report to [facility] twice; no answer.
== END 2024-01-12 21:45 ==
PROVIDERS: Emergency Provider Emergency Medicine; PCP Hospitalist
DX: Z04.3 Encounter for examination and observation following other accident (principal); J44.9 Chronic obstructive pulmonary disease, unspecified; I10 Essential (primary) hypertension; E11.9 Type 2 diabetes mellitus without complications; E03.9 Hypothyroidism, unspecified; D64.9 Anemia, unspecified; Z87.891 Personal history of nicotine dependence; Z89.431 Acquired absence of right foot; Z89.422 Acquired absence of other left toe(s); Z89.412 Acquired absence of left great toe; W18.39XA Other fall on same level, initial encounter; Z79.82 Long term (current) use of aspirin; Z79.4 Long term (current) use of insulin; Z79.01 Long term (current) use of anticoagulants; Z79.899 Other long term (current) drug therapy
CPT/HCPCS: 70450; 71045; 72170; 99284

== ENCOUNTER 2024-04-06 19:51 | Emergency (ER) | payer MEDICARE, MEDICAID, SELFPAY ==
--- NOTE | ~2024-04-06 | CT_ITS ---
EXAMINATION: CT brain wo con DATE: 04/06/2024 21:11 INDICATION: Head injury. TECHNIQUE: Computed tomography (CT) of the head was performed without intravenous contrast. The mA wa s adjusted according to patient size. Iterative reconstruction technique was employed. The dose-lengt h product was 605.33 mGy-cm. COMPARISON: Head CT 01/12/2024 FINDINGS: There is an old infarct in right cerebellum. There is an old infarct in left frontal lobe. There are scattered areas of low attenuation in the cerebral white matter. There is an old infarct in right caudate nucleus. There is an old infarct in left thalamus. There is no intracranial hemorrhage , acute infarction, or abnormal intracranial mass lesion. The ventricles are normal in size. There ar e likely changes of ocular lens replacement surgeries. There is mild mucosal thickening in the parana edvin sinuses. There is old fracture deformity of left nasal bone. There is a small left mastoid effusi on. There is a mass with calcifications in the superior scalp, likely an old hematoma or sebaceous cy st. IMPRESSION: 1. 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 2. Extensive nonspecific cerebral white matter disease, which likely represents chronic small vessel ischemic disease. Reviewed, dictated and finalized at location A. IMPRESSION: 1. 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 2. Extensive nonspecific cerebral white matter disease, which likely represents chronic small vessel ischemic disease.
--- NOTE | ~2024-04-06 | CT_ITS ---
EXAMINATION: CT cervical spine wo con DATE: 04/06/2024 21:11 INDICATION: Head injury. TECHNIQUE: Computed tomography (CT) of the cervical spine was performed without intravenous contrast. Automated exposure control and iterative reconstruction technique were employed. The dose-length pro duct was 105.40 mGy-cm. COMPARISON: None FINDINGS: There is mild emphysema. There are small bilateral mastoid effusions. There is 15 degrees d extroscoliosis of cervical spine. There is 2 mm anterolisthesis of C3 on C4 and C5 on C6. Vertebral b jesu heights are normal. There is mildly decreased disc height at C3-C4 and C4-C5, moderately decrease d disc height at C5-C6, and severely decreased disc height at C6-C7. The following disc levels are sp ecifically discussed: C2-C3: There is mild bilateral uncovertebral joint osteoarthritis. There is severe bilateral facet viviana int osteoarthritis. There is mild left neural foraminal stenosis. There is no central canal stenosis. C3-C4: There is severe right and mild left uncovertebral joint osteoarthritis. There is severe bilate ral facet joint osteoarthritis. There is moderate and mild left neural foraminal stenosis. There is m ild central canal stenosis. C4-C5: There is moderate right and mild left uncovertebral joint osteoarthritis. There is severe bila teral facet joint osteoarthritis. There is mild bilateral neural foraminal stenosis. There is mild ce ntral canal stenosis. C5-C6: There is moderate bilateral uncovertebral joint osteoarthritis. There is severe bilateral face t joint osteoarthritis. There is mild bilateral neural foraminal stenosis. There is mild central anthony l stenosis. C6-C7: There is severe bilateral uncovertebral joint osteoarthritis. There is severe bilateral facet joint osteoarthritis. There is mild bilateral neural foraminal stenosis. There is mild central canal stenosis. C7-T1: There is no uncovertebral joint osteoarthritis. There is severe bilateral facet joint osteoart hritis. There is no neural foraminal stenosis. There is no central canal stenosis. IMPRESSION: 1. No fracture. 2. Severe cervical spondylosis. 3. Cervical dextroscoliosis. Reviewed, dictated and finalized at location A.
[2024-04-06 19:53] VITALS: BP 112/52; PULSE 81; RESP 16; O2SAT 97
[2024-04-06 20:31] VITALS: BP 106/46; PULSE 79; RESP 21; O2SAT 96
[2024-04-06 21:15] VITALS: PULSE 76; RESP 19; O2SAT 98
--- NOTE | 2024-04-06 21:22 | ED.FALL ---
HPI - Fall General Chief Complaint: Fall Stated Complaint: FALL OUT OF W/C, NO INJURY, ON ELIQUIS History of Present Illness HPI Narrative: 84-year-old female presenting to the emergency department for evaluation after having a ground level fall. Patient is on Eliquis and had non witnessed ground level fall. Upon arrival to the emergency department patient denies any pain or injury. Patient is no distress that is resting comfortably. Related Data Home Medications Medication Instructions Recorded Confirmed albuterol sulfate 90 mcg/actuation 2 inh inhalation BID PRN Shortness 02/03/20 08/14/23 aerosol inhaler Of Breath aspirin 81 mg tablet,delayed 81 mg PO DAILY 01/21/23 08/14/23 release atorvastatin 10 mg tablet 10 mg PO DAILY 01/21/23 08/14/23 cholecalciferol (vitamin D3) 25 25 mcg PO DAILY 01/21/23 08/14/23 mcg (1,000 unit) capsule (Vitamin D3) hydroxyzine HCl 10 mg tablet 10 mg PO DAILY 01/21/23 08/14/23 insulin glargine 100 unit/mL (3 15 unit subcut HS 01/21/23 08/14/23 mL) subcutaneous pen (Lantus Solostar U-100 Insulin) levothyroxine 75 mcg tablet 75 mcg PO DAILY 01/21/23 08/14/23 losartan 50 mg tablet 100 mg PO DAILY 01/21/23 08/14/23 mirtazapine 15 mg tablet 15 mg PO DAILY 01/21/23 08/14/23 ondansetron HCl 4 mg tablet 4 mg PO DAILY 01/21/23 08/14/23 apixaban 5 mg tablet (Eliquis) 5 mg PO BID 08/14/23 08/14/23 benzocaine 20 %-menthol 0.1 %-zinc 1 ea mucous membrane TID PRN mouth 08/14/23 08/14/23 chloride 0.15 % mucosal gel sores (Orajel 3X Mouth Sores) furosemide 20 mg tablet 20 mg PO DAILY 08/14/23 08/14/23 Allergies Allergy/AdvReac Type Severity Reaction Status Date / Time codeine Allergy Rash Verified 01/21/23 10:56 vancomycin Allergy Difficulty Verified 01/21/23 10:56 Breathing Review of Systems Review of Systems: All systems reviewed & are unremarkable except as noted in HPI and below PMFSH Past Medical History Medical History Abdominal aortic aneurysm Abdominal pain Acute on chronic anemia COPD (chronic obstructive pulmonary disease) Dementia Diabetes mellitus Hypertension Hypothyroid Occult blood in stools Surgical History Surgical History 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 Needed amputation to all 5 toes Family History Family History Sibling Diabetes mellitus Social History Social History Smoking packs per day: 1 Smoking cigarettes per day: 20.0 Years smoked: 50 Smoking pack-years: 50.00 Smoking status: Former smoker Alcohol intake: never Substance use: never Additional living arrangements comments: Currently living at [facility] due to recent toe amputation and needing therapy Occupation/Education: retired Gender identity (if verbalized by the patient): Female Sexual Orientation (if Verbalized by the Patient): Straight or Heterosexual Spiritual care concerns: No Exam Narrative: APPEARANCE: Well appearing, no pain, no distress, well-nourished. HEAD: normocephalic, atraumatic. EYES: PERRLA/EOMI, conjunctivae clear. NOSE: Normal no drainage EARS:TMS clear with good light reflex. THROAT: Pharynx clear, no exudate. NECK: Supple. No adenopathy, no masses. RESPIRATORY: Airway patent, respirations nonlabored. Clear to auscultation bilaterally, no rales, rhonchi, wheezing. CARDIOVASCULAR: Regular rate and rhythm without murmurs rubs or gallops. ABDOMINAL: Soft, nontender, nondistended, normal bowel sounds MUSCULOSKELETAL: Moves all extremities. Strength/ROM intact, No edema, No calf tenderness. NEURO: Alert. Cranial nerves II through XII intact. Good gait. Good coordination SKIN: Warm, dry. Normal Color
[2024-04-06 22:22] VITALS: BP 124/86; PULSE 69; RESP 18; TEMP 36.2; O2SAT 100
--- NOTE | 2024-04-06 22:23 | PC.NURSE ---
called facility to give patient update with no answer. left a voicemail
== END 2024-04-06 22:23 ==
PROVIDERS: Emergency Provider Emergency Medicine; PCP Hospitalist
DX: S09.90XA Unspecified injury of head, initial encounter (principal); F03.90 Unspecified dementia, unspecified severity, without behavioral disturbance, psychotic disturbance, mood disturbance, and anxiety; I10 Essential (primary) hypertension; J44.9 Chronic obstructive pulmonary disease, unspecified; E11.9 Type 2 diabetes mellitus without complications; E03.9 Hypothyroidism, unspecified; Z87.891 Personal history of nicotine dependence; Z89.431 Acquired absence of right foot; Z89.412 Acquired absence of left great toe; Z89.422 Acquired absence of other left toe(s); Z79.4 Long term (current) use of insulin; Z79.01 Long term (current) use of anticoagulants; Z79.899 Other long term (current) drug therapy; R90.82 White matter disease, unspecified; M47.812 Spondylosis without myelopathy or radiculopathy, cervical region; W18.30XA Fall on same level, unspecified, initial encounter
CPT/HCPCS: 70450; 72125; 99284

== ENCOUNTER 2024-05-06 13:17 | Inpatient (IN) | payer MEDICARE, MEDICAID, SELFPAY ==
[2024-05-06] VITALS (19 sets, daily range): BP systolic 109–139; BP diastolic 47–64; PULSE 57–83; RESP 13–19; TEMP 36.4–36.9; O2SAT 92–98
--- NOTE | ~2024-05-06 | US_ITS ---
EXAMINATION: US venous doppler [facility] DATE: 05/06/2024 22:24 INDICATION: Left lower limb swelling. TECHNIQUE: Grayscale ultrasound images without and with compression and Doppler ultrasound images of the left lower extremity veins were obtained. COMPARISON: Ultrasound 08/24/2023 FINDINGS: The visualized portions of left common femoral vein, profunda (deep) femoral vein, femoral vein, popl iteal vein, peroneal veins, posterior tibial veins, and greater saphenous vein outflow are patent. IMPRESSION: 1. No deep venous thrombosis. Reviewed, dictated and finalized at location A.
--- NOTE | 2024-05-06 13:27 | ECG_ITS ---
Test Date: 2024-05-06 13:32:40 Measurements Intervals [place] Rate: 59 P: 81 [place]: 178 QRS: 66 QRSD: 102 T: 87 QT: 433 QTc: 431 Interpretive Statements SINUS BRADYCARDIA ANTERIOR INFARCT, AGE INDETERMINATE VENTRICULAR PREMATURE COMPLEX NONSPECIFIC T-WAVE ABNORMALITY No previous ECG available for comparison Electronically Signed On 05-06-2024 13:37:26 CDT by Nick Reynoso M.D.
[2024-05-06 13:29] LABS: Glucose Point of Care 171 mg/dl (65-105)
[2024-05-06 13:47] LABS: Basophils Absolute Auto 0.1 K/mm3 (0.0-0.1); Basophils Percent Auto 0.8 % (0.2-1.2); Eosinophils Absolute Auto 0.6 K/mm3 (0-0.3); Eosinophils Percent Auto 8.8 % (0-4.4); Hematocrit 35.8 % (37.0-47.0); Hemoglobin 11.1 g/dL (12.0-15.0); Immature Granulocyte Absolute 0.01 K/mm3 (0.00-0.031); Immature Granulocyte Percent A 0.2 % (0-0.5); Lymphocytes Absolute Auto 1.97 K/mm3 (0.9-3.2); Lymphocytes Percent Auto 31.6 % (18.3-44.2); Mean Corpuscular Hemoglobin 30.6 pg (26-34); Mean Corpuscular Volume 98.6 fl (80-100); Mean Platelet Volume 10.1 fl (7.4-10.4); Monocytes Absolute Auto 0.9 K/mm3 (0.1-0.6); Monocytes Percent Auto 13.8 % (2.6-8.5); Neutrophils Absolute Auto 2.8 K/mm3 (1.3-6.7); Neutrophils Percent Auto 44.8 % (45.5-73.1); Platelet Count Result 240 k/mm3 (150-375); Red Blood Count 3.63 M/mm3 (4.2-5.4); Red Cell Distribution Width 12.9 % (11.5-14.5); White Blood Count 6.2 K/mm3 (4.5-10.0)
[2024-05-06 13:59] LABS: INR 1.3; Prothrombin Time 16.9 Seconds (11.1-14.7)
[2024-05-06 14:36] LABS: Add Urine Microscopic? YES; Appearance Urine Turbid (Clear); Bacteria Urine 4+ /hpf; Bilirubin Urine Negative (Negative); Blood Urine Trace (Negative); Color Urine Yellow (Yellow); Glucose Urine UA Negative (Negative); Ketones Urine Negative (Negative); Leukocyte Esterase Ur 3+ LEU/UL (Negative); Nitrate Urine Negative (Negative); Non Pathogenic Casts 0-2; Protein Urine 2+ mg/dL (Negative); RBC Urine 0-2 /hpf (0-2); Specific Grav Ur 1.012 (1.001-1.035); Squamous Epithelial Cell Urine None Seen /hpf (Few); Urobilinogen Urine 0.2 mg/dL (<2.0); WBC Urine >100 /hpf (0-3)
[2024-05-06] MEDS: SODIUM CHLORIDE 0.9% IV 2,000 ML 999 ML IV CONT (15:30)
[2024-05-06 16:04] LABS: Influenza A QL RT-PCR Negative (Negative); Influenza B QL RT-PCR Negative (Negative); RSV RNA, RT-PCR Negative (Negative); SARS-CoV-2 RNA PCR Negative (Negative)
--- NOTE | 2024-05-06 16:38 | ED.AMS ---
HPI - Altered Mental Status General Chief Complaint: Altered Mental Status Stated Complaint: ams Time Seen by Provider: 05/06/24 14:20 History of Present Illness HPI narrative: 84-year-old female presenting with altered mental status. Family is at bedside and states that they went to visit her and she was confused and not making any sense. States that this is how she acts when she has a UTI. She has not been complaining of anything lately. On my evaluation, she complains of generalized fatigue and weakness. Denies any pain. Related Data Home Medications Medication Instructions Recorded Confirmed albuterol sulfate 90 mcg/actuation 2 inh inhalation BID PRN Shortness 02/03/20 05/06/24 aerosol inhaler Of Breath atorvastatin 10 mg tablet 10 mg PO DAILY 01/21/23 05/06/24 cholecalciferol (vitamin D3) 25 25 mcg PO DAILY 01/21/23 05/06/24 mcg (1,000 unit) capsule (Vitamin D3) insulin glargine 100 unit/mL (3 10 unit subcut QAM 01/21/23 05/06/24 mL) subcutaneous pen (Lantus Solostar U-100 Insulin) levothyroxine 75 mcg tablet 75 mcg PO DAILY 01/21/23 05/06/24 losartan 50 mg tablet 100 mg PO DAILY 01/21/23 05/06/24 mirtazapine 15 mg tablet 7.5 mg PO HS 01/21/23 05/06/24 ondansetron HCl 4 mg tablet 4 mg PO DAILY 01/21/23 05/06/24 apixaban 5 mg tablet (Eliquis) 2.5 mg PO DAILY 08/14/23 05/06/24 benzocaine 20 %-menthol 0.1 %-zinc 1 ea mucous membrane TID PRN mouth 08/14/23 05/06/24 chloride 0.15 % mucosal gel sores (Orajel 3X Mouth Sores) furosemide 20 mg tablet 20 mg PO DAILY 08/14/23 05/06/24 gabapentin 100 mg capsule 100 mg PO BID 05/06/24 05/06/24 insulin lispro 100 unit/mL 5 unit subcut TIDWM 05/06/24 05/06/24 subcutaneous half-unit pen lisinopril 10 mg tablet 10 mg PO DAILY 05/06/24 05/06/24 Allergies Allergy/AdvReac Type Severity Reaction Status Date / Time codeine Allergy Rash Verified 05/06/24 18:46 vancomycin Allergy Difficulty Verified 05/06/24 18:46 Breathing Review of Systems Review of Systems: All systems reviewed & are unremarkable except as noted in HPI and below PMFSH Past Medical History Medical History Abdominal aortic aneurysm Abdominal pain COPD (chronic obstructive pulmonary disease) Dementia Diabetes mellitus Hypertension Hypothyroid Iron deficiency anemia Occult blood in stools Surgical History Surgical History 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 Needed amputation to all 5 toes Family History Family History Sibling Diabetes mellitus Social History Social History Smoking packs per day: 1 Smoking cigarettes per day: 20.0 Years smoked: 50 Smoking pack-years: 50.00 Smoking status: Former smoker Alcohol intake: never Substance use: never Occupation/Education: retired Gender identity (if verbalized by the patient): Female Sexual Orientation (if Verbalized by the Patient): Straight or Heterosexual Spiritual care concerns: No Exam Narrative: GENERAL: Ill-appearing, no acute distress HEAD: Normocephalic, atraumatic. EYES: PERRLA and EOMI. ENT: Mucous membranes dry NECK: Supple. CHEST: Clear to auscultation. No respiratory distress. HEART: Regular rate and rhythm ABDOMEN: Soft, nontender, nondistended EXTREMITIES: Normal range of motion. SKIN: Warm, dry, no rash. NEURO: Alert and oriented x2. Moving all extremities spontaneously, following commands PSYCH: Normal mood and affect. Course Vital Signs Vital signs: Vital Signs Temperature 98.1 F 05/06/24 13:19 Pulse Rate 61 05/06/24 13:19 Respiratory Rate 15 05/06/24 13:19 Blood Pressure 111/47 L 05/06/24 13:19 Pulse Oximetry 98
[2024-05-06 17:13] LABS: Alanine Aminotransferase 8 U/L (6-35); Albumin Level 3.2 g/dL (3.5-5.1); Alkaline Phosphatase 83 U/L (38-126); Anion Gap 6 mmol/L (4-12); Aspartate Amino Transferase 17 U/L (14-36); Bilirubin,Total 0.5 mg/dL (0.2-1.3); Blood Urea Nitrogen 36 mg/dL (7-17); Calcium 9.2 mg/dL (8.4-10.2); Carbon Dioxide 29 mmol/L (22-30); Chloride 106 mmol/L (98-107); Estimated CRCL calculation 17 ml/min; Estimated Glomerular Filt Rate 31; Glucose 83 mg/dL (65-110); Potassium 4.1 mmol/L (3.4-5.0); Sodium 141 mmol/L (137-145)
--- NOTE | 2024-05-06 18:15 | ADMGEN ---
This patient, Sandra Levine, was admitted to Medical Room 345-01. Patient/family oriented to hospital policies and general routines including ID bracelet, bed and alarms, visiting hours, pain management, procedures, bathroom and other care routines, personal items, smoking policy, room service/diet, and visiting hours. Information on how to activate the Rapid Response Team has been discussed. Patient/Family are encouraged to report perceived risks to care and to ask questions if they do not understand what they are told or what they should do.
--- NOTE | 2024-05-06 19:55 | PC.NURSE ---
Patient paperwork received from [facility] for review. DNR placed in chart.
--- NOTE | 2024-05-06 20:07 | PM.IMHP ---
H&P: HPI History of Present Illness Date/Time: 05/06/24 20:07 Chief Complaint: Hypotension Narrative: 84 y/o F presents here with hypotension with PMH of abdominal aortic aneurysm, chronic anemia, COPD, dementia, diabetes, HTN, and hypothyroidism. The patient presents here from [facility] via EMS for further evaluation of hypotension. HPI obtained through patient interview and chart review, called [facility] for collateral but no answer. long term staff reported to EMS that her blood pressure was 80/20 which prompted them to call 911. BP upon EMS arrival was 96/48. Contacted NH this evening and today could not find documentation of events this morning beyond that she appeared altered. Baseline is A/Ox2-3 per NH. Currently A/Ox2 (place, self). The patient denies abdominal pain, dysuria, urinary frequency, hematuria, fever, chills, dizziness, chest pain, shortness of breath, or body aches. Initial VS at presentation: 98.1? F, HR 61, RR 15, 111/47, and 98% on RA. ED workup showed: No leukocytosis, hemoglobin 11.1 (previously 8.8 on 08/26/2023), INR 1.3, creatinine 1.6 and GFR 31 (previously 0.9 and GFR 60 on 08/26/2023), glucose 171, and UA consistent with UTI. Viral PCR negative. 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 Needed amputation to all 5 toes Family History Family History Sibling Diabetes mellitus Social History Social History (Updated 05/06/24 @ 21:20 by Anna Buitrago APRN) Smoking packs per day: 1 Smoking cigarettes per day: 20.0 Years smoked: 50 Smoking pack-years: 50.00 Smoking status: Former smoker Alcohol intake: never Substance use: never Occupation/Education: retired Gender identity (if verbalized by the patient): Female Sexual Orientation (if Verbalized by the Patient): Straight or Heterosexual Spiritual care concerns: No Meds Home Medications and Allergies Home Medications Medication Instructions Recorded Confirmed Type albuterol sulfate 90 mcg/actuation 2 inh inhalation BID PRN Shortness 02/03/20 05/06/24 History aerosol inhaler Of Breath cetirizine 10 mg capsule (Zyrtec) 10 mg PO DAILY PRN allergy 03/28/22 05/06/24 Rx symptoms #30 caps atorvastatin 10 mg tablet 10 mg PO DAILY 01/21/23 05/06/24 History cholecalciferol (vitamin D3) 25 25 mcg PO DAILY 01/21/23 05/06/24 History mcg (1,000 unit) capsule (Vitamin D3) insulin glargine 100 unit/mL (3 10 unit subcut HS 01/21/23 05/06/24 History mL) subcutaneous pen (Lantus Solostar U-100 Insulin) levothyroxine 75 mcg tablet 75 mcg PO DAILY 01/21/23 05/06/24 History losartan 50 mg tablet 100 mg PO DAILY 01/21/23 05/06/24 History mirtazapine 15 mg tablet 7.5 mg PO HS 01/21/23 05/06/24 History ondansetron HCl 4 mg tablet 4 mg PO DAILY 01/21/23 05/06/24 History amlodipine 5 mg tablet (Norvasc) 10 mg PO QAM #30 tabs 01/23/23 05/06/24 Rx apixaban 5 mg tablet (Eliquis) 2.5 mg PO BID 08/14/23 05/06/24 History benzocaine 20 %-menthol 0.1 %-zinc 1 ea mucous membrane TID PRN mouth 08/14/23 05/06/24 History chloride 0.15 % mucosal gel sores (Orajel 3X Mouth Sores) furosemide 20 mg tablet 20 mg PO DAILY 08/14/23 05/06/24 History ferrous sulfate 325 mg (65 mg 325 mg PO BID #60 tabs 08/26/23 05/06/24 Rx iron) tablet,delayed release gabapentin 100 mg capsule 100 mg PO
[2024-05-06 20:46] LABS: Glucose Point of Care 89 mg/dl (65-105)
[2024-05-06] MEDS: SODIUM CHLORIDE 0.9% IV 1,000 ML 100 ML IV CONT (22:23)
[2024-05-06] MEDS: MIRTAZAPINE 7.5 MG TABLET PO (22:24)
[2024-05-06] MEDS: GABAPENTIN 100 MG CAPSULE PO (22:25)
[2024-05-06] MEDS: APIXABAN 2.5 MG TABLET PO (22:25)
[2024-05-06] MEDS: INSULIN GLARGINE (*BKC) 100 UNITS/ML 10 UNITS SUB-Q (22:28)
[2024-05-06] MEDS: ACETAMINOPHEN 325 MG TABLET 650 MG PO (22:28)
[2024-05-07] VITALS (7 sets, daily range): BP systolic 120–145; BP diastolic 42–60; PULSE 59–80; RESP 14–20; TEMP 36–36.6; O2SAT 93–98
[2024-05-07] MEDS: LEVOTHYROXINE SODIUM 75 MCG TABLET PO (05:45)
[2024-05-07 06:36] LABS: Basophils Absolute Auto 0.1 K/mm3 (0.0-0.1); Basophils Percent Auto 1.2 % (0.2-1.2); Eosinophils Absolute Auto 0.7 K/mm3 (0-0.3); Eosinophils Percent Auto 12.7 % (0-4.4); Hematocrit 34.1 % (37.0-47.0); Hemoglobin 10.7 g/dL (12.0-15.0); Immature Granulocyte Absolute 0.02 K/mm3 (0.00-0.031); Immature Granulocyte Percent A 0.3 % (0-0.5); Lymphocytes Absolute Auto 0.91 K/mm3 (0.9-3.2); Lymphocytes Percent Auto 15.9 % (18.3-44.2); Mean Corpuscular HGB Conc 31.4 g/dl (32-36); Mean Corpuscular Hemoglobin 30.7 pg (26-34); Mean Platelet Volume 9.9 fl (7.4-10.4); Monocytes Absolute Auto 0.7 K/mm3 (0.1-0.6); Monocytes Percent Auto 11.7 % (2.6-8.5); Neutrophils Absolute Auto 3.3 K/mm3 (1.3-6.7); Neutrophils Percent Auto 58.2 % (45.5-73.1); Platelet Count Result 217 k/mm3 (150-375); Red Blood Count 3.48 M/mm3 (4.2-5.4); Red Cell Distribution Width 12.6 % (11.5-14.5); White Blood Count 5.7 K/mm3 (4.5-10.0)
[2024-05-07 06:51] LABS: Anion Gap 6 mmol/L (4-12); Blood Urea Nitrogen 29 mg/dL (7-17); Calcium 8.4 mg/dL (8.4-10.2); Carbon Dioxide 25 mmol/L (22-30); Chloride 111 mmol/L (98-107); Estimated CRCL calculation 20 ml/min; Estimated Glomerular Filt Rate 39; Glucose 128 mg/dL (65-110); Potassium 4.3 mmol/L (3.4-5.0); Sodium 142 mmol/L (137-145)
--- NOTE | 2024-05-07 07:29 | PM.IMPN ---
Progress Note: A&P Assessment and Plan (1) Acute UTI: Code(s): N39.0 - Urinary tract infection, site not specified Status: Acute Assessment and Plan: Did not meet SIRS criteria, however given hypotension BC were obtained, follow - UA: Turbid, 2+ protein, 3+ leuks, greater than 100 WBC, no epithelial cells, 4+ bacteria - UC collected on 05/06: pending - previous micro reviewed 08/14/23: Proteus mirabilis with resistance to Cipro and Macrobid and intermediate to Levaquin. 03/30/22: Coag neg staph, not saprophyti with resistance to cipro, oxacillin, tetracycline, and bactrim. Intermediate to levaquin. - started on Ceftriaxone on 05/06 (2) GURPREET (acute kidney injury): Code(s): N17.9 - Acute kidney failure, unspecified Status: Acute Assessment and Plan: Creatinine 1.6 and GFR 31, previously 0.9 and GFR 60 on 08/26/2023 - BUN/Cr 29/1.3 on am labs - suspect injury is secondary to UTI. Started on IV fluids and antibiotics. Hold Lasix. - monitor I/O - avoid nephrotoxic medications - renally dose medications - trend renal function - trend electrolytes, correct as needed (3) Left leg swelling: Code(s): M79.89 - Other specified soft tissue disorders Status: Acute Assessment and Plan: - LLE significantly more edematous than RLE, patient unsure if this is new or baseline - ultrasound of LLE: No DVT - patient on Eliquis, continue (4) Diabetes mellitus: Qualifiers: Diabetes mellitus complication status: without complication Diabetes mellitus roasterman insulin use: with roasterman use Diabetes mellitus type: type 2 Qualified Code(s): E11.9 - Type 2 diabetes mellitus without complications; Z79.4 - 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 with meals, Lantus 10 units HS - correct regimen ordered - low dose TIDWM, based off BMI - A1C 9.0 (5) Hypertension: Qualifiers: Hypertension type: primary hypertension Qualified Code(s): I10 - Essential (primary) hypertension Code(s): I10 - Essential (primary) hypertension Status: Chronic Assessment and Plan: - chronic - home medications: hold Lasix and losartan given GURPREET, resume when appropriate. Continue lisinopril and amlodipine - monitor Plan Diet: Heart healthy GI Prophylaxis: Not currently indicated DVT Prophylaxis: Continue home Eliquis Lines: Peripheral Code Status: Full code Time Spent With Patient Time with patient: 25 - 35 minutes Subjective Date/time seen: 05/07/24 07:29 Interval history: 84 year old female with past medical history of abdominal aortic aneurysm, chronic anemia, COPD, dementia, diabetes, HTN, and hypothyroidism presents to the hospital from [facility] for hypotension. Per chart review, baseline mental status is AOx2-3 per NH. Patient is pleasant lying in bed. She is AOx2 (person, place). BP remains stable, however we are currently holding lasix and losartan given the GURPREET. As GURPREET resolves will have to slowly restart these medications to ensure no hypotension. Patient continues to endorse dysuria, but denies burning sensation and hematuria. She also denies chest pain, shortness of breath, nausea/vomiting and abdominal pain. Review of Systems Review of Systems: All systems reviewed & are unremarkable except as noted in HPI and below Exam Narrative: AF HR 80 RR 14 SpO2 93 BP 145/60 General: frail female in no acute respiratory distress who is nontoxic appearing, lying semi recumbent in bed. HEENT: Normocephalic. Atraumatic. Extraocular movement intact. Sclera clear and anicteric. No facial asymmetry. Chest: Lungs are clear to auscultation bilaterlly. No wheezes or crackles. CV: Heart was regular rate and rhythm.
[2024-05-07 08:01] LABS: Glucose Point of Care 99 mg/dl (65-105)
[2024-05-07] MEDS: APIXABAN 2.5 MG TABLET PO ×2 (08:33→21:01)
[2024-05-07] MEDS: GABAPENTIN 100 MG CAPSULE PO ×2 (08:33→16:50)
[2024-05-07] MEDS: ATORVASTATIN 10 MG TABLET PO (08:33)
[2024-05-07] MEDS: FERROUS SULFATE 325 MG TABLET DR PO ×2 (08:33→16:50)
[2024-05-07] MEDS: CHOLECALCIFEROL 1,000 UNITS TABLET 1000 UNITS PO (08:33)
[2024-05-07] MEDS: ONDANSETRON HCL ODT 4 MG TABLET PO (08:33)
[2024-05-07] MEDS: lisinopriL 10 MG TABLET PO (08:33)
[2024-05-07] MEDS: amLODIPine BESYLATE 10 MG TABLET PO (08:33)
[2024-05-07] MEDS: INSULIN ASPART (*BKC) 100 UNITS/ML SUB-Q ×3 (08:34→16:51)
[2024-05-07 11:53] LABS: Glucose Point of Care 124 mg/dl (65-105)
[2024-05-07 16:44] LABS: Glucose Point of Care 129 mg/dl (65-105)
[2024-05-07] MEDS: MIRTAZAPINE 7.5 MG TABLET PO (21:01)
[2024-05-07] MEDS: INSULIN GLARGINE (*BKC) 100 UNITS/ML 10 UNITS SUB-Q (21:01)
--- NOTE | 2024-05-08 05:19 | PC.NURSE ---
Duplicate lab called this evening at 2340, reporting positive cocci cluster in aerobic bottle solely. Critical labs reported to physician by dayshift nurse documentation noted and reviewed.
[2024-05-08 06:00] VITALS: BP 131/50; PULSE 76; RESP 20; TEMP 36.5; O2SAT 98
[2024-05-08] MEDS: LEVOTHYROXINE SODIUM 75 MCG TABLET PO (06:18)
[2024-05-08 08:41] LABS: Glucose Point of Care 52 mg/dl (65-105)
--- NOTE | 2024-05-08 08:46 | PC.NURSE ---
0836 apple juice given. Patient is alert and oriented. Asymptomatic. Patient drank entire 4 oz. Will recheck BG in 15 minutes.
[2024-05-08 08:54] LABS: Glucose Point of Care 79 mg/dl (65-105)
[2024-05-08] MEDS: CHOLECALCIFEROL 1,000 UNITS TABLET 1000 UNITS PO (08:58)
[2024-05-08] MEDS: lisinopriL 10 MG TABLET PO (08:58)
[2024-05-08] MEDS: ATORVASTATIN 10 MG TABLET PO (08:59)
[2024-05-08] MEDS: ONDANSETRON HCL ODT 4 MG TABLET PO (08:59)
[2024-05-08] MEDS: amLODIPine BESYLATE 10 MG TABLET PO (08:59)
[2024-05-08] MEDS: APIXABAN 2.5 MG TABLET PO ×2 (08:59→21:50)
[2024-05-08] MEDS: GABAPENTIN 100 MG CAPSULE PO ×2 (08:59→17:27)
[2024-05-08] MEDS: FERROUS SULFATE 325 MG TABLET DR PO ×2 (08:59→17:27)
--- NOTE | 2024-05-08 09:08 | PM.IMPN ---
Progress Note: A&P Assessment and Plan (1) Acute UTI: Code(s): N39.0 - Urinary tract infection, site not specified Status: Acute Assessment and Plan: Did not meet SIRS criteria, however given hypotension BC were obtained, follow - UA: Turbid, 2+ protein, 3+ leuks, greater than 100 WBC, no epithelial cells, 4+ bacteria - UC collected on 05/06: pending - previous micro reviewed 08/14/23: Proteus mirabilis with resistance to Cipro and Macrobid and intermediate to Levaquin. 03/30/22: Coag neg staph, not saprophyti with resistance to cipro, oxacillin, tetracycline, and bactrim. Intermediate to levaquin. - started on Ceftriaxone on 05/06 (2) GURPREET (acute kidney injury): Code(s): N17.9 - Acute kidney failure, unspecified Status: Acute Assessment and Plan: Creatinine 1.6 and GFR 31, previously 0.9 and GFR 60 on 08/26/2023 - BUN/Cr 29/1.3 on am labs - suspect injury is secondary to UTI. Started on IV fluids and antibiotics. Hold Lasix. - monitor I/O - avoid nephrotoxic medications - renally dose medications - trend renal function - trend electrolytes, correct as needed (3) Left leg swelling: Code(s): M79.89 - Other specified soft tissue disorders Status: Acute Assessment and Plan: - LLE significantly more edematous than RLE, patient unsure if this is new or baseline - ultrasound of LLE: No DVT - patient on Eliquis, continue (4) Diabetes mellitus: Qualifiers: Diabetes mellitus complication status: without complication Diabetes mellitus oysterman insulin use: with oysterman use Diabetes mellitus type: type 2 Qualified Code(s): E11.9 - Type 2 diabetes mellitus without complications; Z79.4 - termination clerk (current) use of insulin Code(s): E11.9 - Type 2 diabetes mellitus without complications Status: Chronic Assessment and Plan: - hypoglycemia protocol - POC blood glucose ACHS - home medication: Lispro 5 units t.i.d. with meals, Lantus 10 units HS - correct regimen ordered - low dose TIDWM, based off BMI - A1C 9.0 - few readings on a lower side- will gold scheduled meal insulin and just keep SS and lantus for now. - add nutritional supplements as no appetite (5) Hypertension: Qualifiers: Hypertension type: primary hypertension Qualified Code(s): I10 - Essential (primary) hypertension Code(s): I10 - Essential (primary) hypertension Status: Chronic Assessment and Plan: - chronic - home medications: hold Lasix and losartan given GURPREET, resume when appropriate. Continue lisinopril and amlodipine - monitor (6) Bacteremia: Code(s): R78.81 - Bacteremia Status: Ruled-out Assessment and Plan: -Blood culture showing gram positive cocci in clusters - Rocephin dose increased to cover bacteremia - monitor Plan Diet: Heart healthy GI Prophylaxis: Not currently indicated DVT Prophylaxis: Continue home Eliquis Lines: Peripheral Code Status: Full code Time Spent With Patient Time with patient: Greater than 35 minutes Subjective Date/time seen: 05/08/24 09:08 Interval history: 84 year old female with past medical history of abdominal aortic aneurysm, chronic anemia, COPD, dementia, diabetes, HTN, and hypothyroidism presents to the hospital from [facility] for hypotension. Per chart review, baseline mental status is AOx2-3 per NH. Patient is pleasant lying in bed. She is AOx2 (person, place). BP remains stable, however we are currently holding lasix and losartan given the GURPREET. As GURPREET resolves will have to slowly restart these medications to ensure no hypotension. Patient continues to endorse dysuria, but denies burning sensation and hematuria. She also denies chest pain, shortness of breath, nausea/vomiting and abdominal pain. 05/08- pt is seen and examined. She is in bed, reports feeling tired. alert to self and place- her baseline. Review of Systems Review
--- NOTE | 2024-05-08 10:48 | PC.NURSE ---
Patient resting in bed. BG low applejuice given. BG 79 upon recheck. Patient was asymptomatic and drank entire applejuice without difficulty. Patient able to consume another applejuice with medication adminstration and 1/2 carton of milk. Oatmeal ordered by PCT as patient states she does not like cream of wheat. Patient adjusted in bed and continues to rest comfortably.
[2024-05-08 12:10] LABS: Glucose Point of Care 144 mg/dl (65-105)
[2024-05-08] MEDS: cefTRIAXone 2 GM/NS 100 ML 2 GM/100 ML BAG IVPB (12:25)
[2024-05-08 13:57] VITALS: BP 114/45; PULSE 75; RESP 16; TEMP 36.6; O2SAT 96
[2024-05-08 17:31] LABS: Glucose Point of Care 80 mg/dl (65-105)
--- NOTE | 2024-05-08 17:31 | PC.NURSE ---
Dinner BG 80. Pills taken with orange juice.
[2024-05-08] MEDS: MIRTAZAPINE 7.5 MG TABLET PO (21:50)
[2024-05-08] MEDS: INSULIN GLARGINE (*BKC) 100 UNITS/ML 10 UNITS SUB-Q (21:52)
[2024-05-08 22:00] VITALS: BP 122/43; PULSE 82; RESP 16; TEMP 37; O2SAT 94
[2024-05-09 04:49] LABS: Glucose Point of Care 105 mg/dl (65-105)
[2024-05-09 06:00] VITALS: BP 130/48; PULSE 70; RESP 18; TEMP 36.5; O2SAT 97
[2024-05-09] MEDS: LEVOTHYROXINE SODIUM 75 MCG TABLET PO (06:01)
[2024-05-09 08:45] LABS: Glucose Point of Care 90 mg/dl (65-105)
--- NOTE | 2024-05-09 09:14 | PM.IMPN ---
Progress Note: A&P Assessment and Plan (1) Acute UTI: Code(s): N39.0 - Urinary tract infection, site not specified Status: Acute Assessment and Plan: Did not meet SIRS criteria, however given hypotension BC were obtained, follow - UA: Turbid, 2+ protein, 3+ leuks, greater than 100 WBC, no epithelial cells, 4+ bacteria - UC collected on 05/06: pending - previous micro reviewed 08/14/23: Proteus mirabilis with resistance to Cipro and Macrobid and intermediate to Levaquin. 03/30/22: Coag neg staph, not saprophyti with resistance to cipro, oxacillin, tetracycline, and bactrim. Intermediate to levaquin. - started on Ceftriaxone on 05/06 -05/09 lost IV access but will obtain midline as needs IV antibiotics (2) GURPREET (acute kidney injury): Code(s): N17.9 - Acute kidney failure, unspecified Status: Acute Assessment and Plan: Creatinine 1.6 and GFR 31, previously 0.9 and GFR 60 on 08/26/2023 - BUN/Cr 29/1.3 on am labs - suspect injury is secondary to UTI. Started on IV fluids and antibiotics. Hold Lasix. 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 with meals, Lantus 10 units HS - correct regimen ordered - low dose TIDWM, based off BMI - A1C 9.0 - few readings on a lower side- will gold scheduled meal insulin and just keep SS and lantus for now. - add nutritional supplements as no appetite (5) Hypertension: Qualifiers: Hypertension type: primary hypertension Qualified Code(s): I10 - Essential (primary) hypertension Code(s): I10 - Essential (primary) hypertension Status: Chronic Assessment and Plan: - chronic - home medications: hold Lasix and losartan given GURPREET, resume when appropriate. Continue lisinopril and amlodipine - monitor (6) Bacteremia: Code(s): R78.81 - Bacteremia Status: Ruled-out Assessment and Plan: -Blood culture showing gram positive cocci in clusters - Rocephin dose increased to cover bacteremia - monitor - 05/09- will repeat BC, monitor cbc,bmp Plan Diet: Heart healthy will add nutritional supplements GI Prophylaxis: Not currently indicated DVT Prophylaxis: Continue home Eliquis Lines: Peripheral Code Status: Full code Time Spent With Patient Time with patient: Greater than 35 minutes Subjective Date/time seen: 05/09/24 09:14 Interval history: 84 year old female with past medical history of abdominal aortic aneurysm, chronic anemia, COPD, dementia, diabetes, HTN, and hypothyroidism presents to the hospital from [facility] for hypotension. Per chart review, baseline mental status is AOx2-3 per NH. Patient is pleasant lying in bed. She is AOx2 (person, place). BP remains stable, however we are currently holding lasix and losartan given the GURPREET. As GURPREET resolves will have to slowly restart these medications to ensure no hypotension. Patient continues to endorse dysuria, but denies burning sensation and hematuria. She also denies chest pain, shortness of breath, nausea/vomiting and abdominal clarissa
[2024-05-09 09:42] LABS: Hematocrit 29.1 % (37.0-47.0); Hemoglobin 9.4 g/dL (12.0-15.0); Mean Corpuscular HGB Conc 32.3 g/dl (32-36); Mean Corpuscular Hemoglobin 31.1 pg (26-34); Mean Corpuscular Volume 96.4 fl (80-100); Mean Platelet Volume 9.7 fl (7.4-10.4); Platelet Count Result 207 k/mm3 (150-375); Red Blood Count 3.02 M/mm3 (4.2-5.4); Red Cell Distribution Width 12.7 % (11.5-14.5); White Blood Count 6.9 K/mm3 (4.5-10.0)
[2024-05-09 09:53] LABS: Anion Gap 7 mmol/L (4-12); Blood Urea Nitrogen 17 mg/dL (7-17); Calcium 8.7 mg/dL (8.4-10.2); Carbon Dioxide 25 mmol/L (22-30); Chloride 106 mmol/L (98-107); Estimated CRCL calculation 26 ml/min; Estimated Glomerular Filt Rate 53; Glucose 131 mg/dL (65-110); Potassium 4.1 mmol/L (3.4-5.0); Sodium 138 mmol/L (137-145)
[2024-05-09] MEDS: FERROUS SULFATE 325 MG TABLET DR PO ×2 (09:58→17:22)
[2024-05-09] MEDS: APIXABAN 2.5 MG TABLET PO ×2 (09:58→20:33)
[2024-05-09] MEDS: ATORVASTATIN 10 MG TABLET PO (09:58)
[2024-05-09] MEDS: GABAPENTIN 100 MG CAPSULE PO ×2 (09:58→17:22)
[2024-05-09] MEDS: lisinopriL 10 MG TABLET PO (09:58)
[2024-05-09] MEDS: amLODIPine BESYLATE 10 MG TABLET PO (09:58)
[2024-05-09] MEDS: CHOLECALCIFEROL 1,000 UNITS TABLET 1000 UNITS PO (09:58)
[2024-05-09] MEDS: ONDANSETRON HCL ODT 4 MG TABLET PO (09:58)
[2024-05-09 12:22] LABS: Glucose Point of Care 155 mg/dl (65-105)
[2024-05-09 14:03] VITALS: BP 114/56; PULSE 66; RESP 15; TEMP 36.7; O2SAT 93
[2024-05-09 17:15] LABS: Glucose Point of Care 103 mg/dl (65-105)
[2024-05-09] MEDS: cefTRIAXone 2 GM/NS 100 ML 2 GM/100 ML BAG IVPB (17:21)
[2024-05-09] MEDS: LIDOCAINE HCL 1% LOCAL INJ 2 ML AMPUL 5 ML INFILTRATE (17:24)
[2024-05-09 20:29] VITALS: BP 117/47; PULSE 78; RESP 16; TEMP 36.6; O2SAT 94
[2024-05-09] MEDS: MIRTAZAPINE 7.5 MG TABLET PO (20:34)
[2024-05-09] MEDS: INSULIN GLARGINE (*BKC) 100 UNITS/ML 10 UNITS SUB-Q (20:35)
[2024-05-09] MEDS: SALINE LOCK FLUSH 10 ML IV PUSH (20:35)
[2024-05-09 21:10] LABS: Glucose Point of Care 194 mg/dl (65-105)
[2024-05-10 04:29] VITALS: BP 125/49; PULSE 73; RESP 16; TEMP 36.6; O2SAT 93
[2024-05-10 04:37] LABS: Hematocrit 29.1 % (37.0-47.0); Hemoglobin 9.5 g/dL (12.0-15.0); Mean Corpuscular HGB Conc 32.6 g/dl (32-36); Mean Corpuscular Volume 95.1 fl (80-100); Mean Platelet Volume 9.3 fl (7.4-10.4); Platelet Count Result 218 k/mm3 (150-375); Red Blood Count 3.06 M/mm3 (4.2-5.4); Red Cell Distribution Width 12.5 % (11.5-14.5); White Blood Count 6.4 K/mm3 (4.5-10.0)
[2024-05-10 04:49] LABS: Anion Gap 4 mmol/L (4-12); Blood Urea Nitrogen 16 mg/dL (7-17); Calcium 8.9 mg/dL (8.4-10.2); Carbon Dioxide 30 mmol/L (22-30); Chloride 104 mmol/L (98-107); Estimated CRCL calculation 26 ml/min; Estimated Glomerular Filt Rate 53; Glucose 85 mg/dL (65-110); Potassium 4.1 mmol/L (3.4-5.0); Sodium 138 mmol/L (137-145)
[2024-05-10] MEDS: LEVOTHYROXINE SODIUM 75 MCG TABLET PO (05:24)
[2024-05-10] MEDS: SALINE LOCK FLUSH 10 ML IV PUSH ×3 (05:24→20:01)
[2024-05-10 08:19] LABS: Glucose Point of Care 75 mg/dl (65-105)
[2024-05-10] MEDS: lisinopriL 10 MG TABLET PO (09:04)
[2024-05-10] MEDS: ONDANSETRON HCL ODT 4 MG TABLET PO (09:04)
[2024-05-10] MEDS: GABAPENTIN 100 MG CAPSULE PO ×2 (09:04→17:17)
[2024-05-10] MEDS: CHOLECALCIFEROL 1,000 UNITS TABLET 1000 UNITS PO (09:04)
[2024-05-10] MEDS: amLODIPine BESYLATE 10 MG TABLET PO (09:04)
[2024-05-10] MEDS: FERROUS SULFATE 325 MG TABLET DR PO ×2 (09:04→17:17)
[2024-05-10] MEDS: ATORVASTATIN 10 MG TABLET PO (09:04)
[2024-05-10] MEDS: APIXABAN 2.5 MG TABLET PO ×2 (09:04→20:00)
--- NOTE | 2024-05-10 09:58 | PM.IMPN ---
Progress Note: A&P Assessment and Plan (1) Acute UTI: Code(s): N39.0 - Urinary tract infection, site not specified Status: Acute Assessment and Plan: - Cx grew out klebsiella and providencia. - started on Ceftriaxone on 05/06, will receive one more dose ceftriaxone and start bactrim orally tomorrow. (2) GURPREET (acute kidney injury): Code(s): N17.9 - Acute kidney failure, unspecified Status: Acute Assessment and Plan: Creatinine 1.0 and GFR 53 today. - Hold further fluids, appears euvolemic on exam. (3) Bacteremia: Code(s): R78.81 - Bacteremia Status: Suspected Assessment and Plan: Cultures are 2 of four positive, with one culture of coag neg staph, one cx staph warneri/hominis. Suspect contamination and patient is showing improvement on current abx which will continue. Most recent cx are no growth day 1 x 2. - Monitor blood cx for growth at 48 hours, if negative, likely discharge. (4) Diabetes mellitus: Qualifiers: Diabetes mellitus type: type 2 Diabetes mellitus [facility] insulin use: with parts counterman use Diabetes mellitus complication status: without complication Qualified Code(s): E11.9 - Type 2 diabetes mellitus without complications; Z79.4 - technician terminal and repeater (current) use of insulin Code(s): E11.9 - Type 2 diabetes mellitus without complications Status: Chronic Assessment and Plan: Several days with sub 100 am fbg with higher premeals. - Holding mealtime scheduled insulin continuing with corrective sliding scale at mealtimes. Likely add scheduled mealtime back in on discharge and back in familiar setting/diet. - Decrease lantus 30%, 7 units daily. - hypoglycemia protocol - POC blood glucose ACHS to continue. (5) Hypertension: Qualifiers: Hypertension type: primary hypertension Qualified Code(s): I10 - Essential (primary) hypertension Code(s): I10 - Essential (primary) hypertension Status: Chronic Assessment and Plan: Uncertain reason michael-i and arb on home medications. BP are stable in range over the last 24 hours. - chronic - home medications: Continue lisinopril and amlodipine. Would advise against resuming losartan if on michael-i. Resume lasix if s/s fluid overload or increasing bp. (6) Left leg swelling: Code(s): M79.89 - Other specified soft tissue disorders Status: Acute Assessment and Plan: Stable. - LLE significantly more edematous than RLE, patient unsure if this is new or baseline - ultrasound of LLE: No DVT - patient on Eliquis, continue Plan Diet: Heart healthy and has glucerna ordered. Change to soft diet as no dentures. GI Prophylaxis: Not currently indicated DVT Prophylaxis: Continue home Eliquis Lines: Midline in place. Code Status: Full code Time Spent With Patient Time with patient: Greater than 35 minutes Subjective Date/time seen: 05/10/24 09:58 Interval history: Sandra is rousable this morning and denies pain. Review of Systems Review of Systems: All systems reviewed & are unremarkable except as noted in HPI and below Exam Narrative: GENERAL APPEARANCE: Appears to be in no acute distress. HEAD: normocephalic atraumatic ENT: Hearing grossly intact, no nasal discharge NECK: Neck supple, trachea midline. CARDIAC: Normal S1/S2. Rhythm is regular. No murmurs, rubs, or gallops. No cyanosis or pallor. Extremities are warm and well perfused. LUNGS: Clear to auscultation without rales, rhonchi, wheezing or diminished breath sounds. Respirations even and unlabored. ABDOMEN: BS positive x 4 quadrants. Soft, nondistended, nontender. No guarding or rebound. MSK: No joint tenderness/swelling, fair strength in all extremities. Multiple toe amputations. PERIPHERAL VASCULAR: Peripheral pulses palpable. Normal perfusion, cap refill <2 seconds. NEURO: Follows commands. No focal deficits. Does not answer orientation questions.
[2024-05-10 12:00] LABS: Glucose Point of Care 188 mg/dl (65-105)
[2024-05-10 12:37] LABS: Glucose Point of Care 92 mg/dl (65-105)
[2024-05-10 13:26] VITALS: BMI 21.1
[2024-05-10 14:00] VITALS: BP 128/43; PULSE 69; RESP 16; TEMP 36.8; O2SAT 93
[2024-05-10 16:58] LABS: Glucose Point of Care 150 mg/dl (65-105)
[2024-05-10] MEDS: cefTRIAXone 2 GM/NS 100 ML 2 GM/100 ML BAG IVPB (17:17)
[2024-05-10] MEDS: MIRTAZAPINE 7.5 MG TABLET PO (20:00)
[2024-05-10] MEDS: INSULIN GLARGINE (*BKC) 100 UNITS/ML 7 UNITS SUB-Q (20:19)
[2024-05-10 20:30] LABS: Glucose Point of Care 181 mg/dl (65-105)
[2024-05-10 20:52] VITALS: BP 138/53; PULSE 72; RESP 14; TEMP 36.9; O2SAT 95
[2024-05-11 06:00] VITALS: BP 141/76; PULSE 69; RESP 16; TEMP 36.8; O2SAT 94
[2024-05-11] MEDS: LEVOTHYROXINE SODIUM 75 MCG TABLET PO (06:03)
[2024-05-11 08:37] LABS: Glucose Point of Care 84 mg/dl (65-105)
[2024-05-11] MEDS: lisinopriL 10 MG TABLET PO (09:01)
[2024-05-11] MEDS: GABAPENTIN 100 MG CAPSULE PO (09:01)
[2024-05-11] MEDS: ONDANSETRON HCL ODT 4 MG TABLET PO (09:01)
[2024-05-11] MEDS: ATORVASTATIN 10 MG TABLET PO (09:01)
[2024-05-11] MEDS: amLODIPine BESYLATE 10 MG TABLET PO (09:01)
[2024-05-11] MEDS: FERROUS SULFATE 325 MG TABLET DR PO (09:01)
[2024-05-11] MEDS: APIXABAN 2.5 MG TABLET PO (09:01)
[2024-05-11] MEDS: CHOLECALCIFEROL 1,000 UNITS TABLET 1000 UNITS PO (09:01)
--- NOTE | 2024-05-11 10:41 | PM.IMPN ---
Progress Note: A&P Assessment and Plan (1) Acute UTI: Code(s): N39.0 - Urinary tract infection, site not specified Status: Acute Assessment and Plan: - Cx grew out klebsiella and providencia. - started on Ceftriaxone on 05/06, will receive one more dose ceftriaxone and start bactrim orally tomorrow. (2) GURPREET (acute kidney injury): Code(s): N17.9 - Acute kidney failure, unspecified Status: Acute Assessment and Plan: Creatinine 1.0 and GFR 53 today. -resolved (3) Bacteremia: Code(s): R78.81 - Bacteremia Status: Suspected Assessment and Plan: Cultures are 2 of four positive, with one culture of coag neg staph, one cx staph warneri/hominis. Suspect contamination and patient is showing improvement on current abx which will continue. Most recent cx are no growth day 1 x 2. - Monitor blood cx for growth at 48 hours, if negative, likely discharge. (4) Diabetes mellitus: Qualifiers: Diabetes mellitus complication status: without complication Diabetes mellitus assistant pastry chef insulin use: with [facility] use Diabetes mellitus type: type 2 Qualified Code(s): E11.9 - Type 2 diabetes mellitus without complications; Z79.4 - [facility] (current) use of insulin Code(s): E11.9 - Type 2 diabetes mellitus without complications Status: Chronic Assessment and Plan: Several days with sub 100 am fbg with higher premeals. - Holding mealtime scheduled insulin continuing with corrective sliding scale at mealtimes. Likely add scheduled mealtime back in on discharge and back in familiar setting/diet. - Decrease lantus 30%, 7 units daily. - hypoglycemia protocol - POC blood glucose ACHS to continue. (5) Hypertension: Qualifiers: Hypertension type: primary hypertension Qualified Code(s): I10 - Essential (primary) hypertension Code(s): I10 - Essential (primary) hypertension Status: Chronic Assessment and Plan: Uncertain reason michael-i and arb on home medications. BP are stable in range over the last 24 hours. - chronic - home medications: Continue lisinopril and amlodipine. Would advise against resuming losartan if on michael-i. Resume lasix if s/s fluid overload or increasing bp. (6) Left leg swelling: Code(s): M79.89 - Other specified soft tissue disorders Status: Acute Assessment and Plan: Stable. - LLE significantly more edematous than RLE, patient unsure if this is new or baseline - ultrasound of LLE: No DVT - patient on Eliquis, continue Plan Diet: Heart healthy and has glucerna ordered. Change to soft diet as no dentures. GI Prophylaxis: Not currently indicated DVT Prophylaxis: Continue home Eliquis Lines: Midline in place. Code Status: Full code Subjective Date/time seen: 05/11/24 10:41 Interval history: Sandra is rousable this morning, Denies complaints this morning Review of Systems Review of Systems: reports overall feeling tired and weak All systems reviewed & are unremarkable except as noted in HPI and below ROS unobtainable: Yes unobtainable due to mental status (limited) Exam Narrative: GENERAL APPEARANCE: Appears to be in no acute distress. HEAD: normocephalic atraumatic ENT: Hearing grossly intact, no nasal discharge NECK: Neck supple, trachea midline. CARDIAC: Normal S1/S2. Rhythm is regular. No murmurs, rubs, or gallops. No cyanosis or pallor. Extremities are warm and well perfused. LUNGS: Clear to auscultation without rales, rhonchi, wheezing or diminished breath sounds. Respirations even and unlabored. ABDOMEN: BS positive x 4 quadrants. Soft, nondistended, nontender. No guarding or rebound. MSK: No joint tenderness/swelling, fair strength in all extremities. Multiple toe amputations. PERIPHERAL VASCULAR: Peripheral pulses palpable. Normal perfusion, cap refill <2 seconds. NEURO: Follows commands. No
[2024-05-11 10:42] LABS: Hematocrit 31.1 % (37.0-47.0); Hemoglobin 9.9 g/dL (12.0-15.0); Mean Corpuscular HGB Conc 31.8 g/dl (32-36); Mean Corpuscular Hemoglobin 30.7 pg (26-34); Mean Corpuscular Volume 96.6 fl (80-100); Mean Platelet Volume 9.6 fl (7.4-10.4); Platelet Count Result 245 k/mm3 (150-375); Red Blood Count 3.22 M/mm3 (4.2-5.4); Red Cell Distribution Width 12.7 % (11.5-14.5); White Blood Count 6.1 K/mm3 (4.5-10.0)
[2024-05-11 10:52] LABS: Anion Gap 5 mmol/L (4-12); Blood Urea Nitrogen 18 mg/dL (7-17); Calcium 8.7 mg/dL (8.4-10.2); Carbon Dioxide 29 mmol/L (22-30); Chloride 104 mmol/L (98-107); Estimated CRCL calculation 29 ml/min; Estimated Glomerular Filt Rate 60; Glucose 140 mg/dL (65-110); Potassium 4.6 mmol/L (3.4-5.0); Sodium 138 mmol/L (137-145)
[2024-05-11 11:54] LABS: Glucose Point of Care 168 mg/dl (65-105)
--- NOTE | 2024-05-11 12:16 | PM.DS ---
DS: Admitting Diagnosis Discharge Date 05/11/2024 Admitting Diagnosis UTI DS: Discharge Diagnosis Discharge Diagnosis (1) Acute UTI: Code(s): N39.0 - Urinary tract infection, site not specified Status: Acute Assessment and Plan: - Cx grew out klebsiella and providencia. - started on Ceftriaxone on 05/06-05/10, Started on Bactrim x 3 days (2) GURPREET (acute kidney injury): Code(s): N17.9 - Acute kidney failure, unspecified Status: Acute Assessment and Plan: Creatinine 1.0 and GFR 53 today. -resolved (3) Bacteremia: Code(s): R78.81 - Bacteremia Status: Suspected Assessment and Plan: Cultures are 2 of four positive, with one culture of coag neg staph, one cx staph warneri/hominis. Suspect contamination and patient is showing improvement on current abx which will continue. Most recent cx are no growth day 1 x 2. -the cultures no growth at 48 hours (4) Diabetes mellitus: Qualifiers: Diabetes mellitus complication status: without complication Diabetes mellitus stop attacher insulin use: with senior care use Diabetes mellitus type: type 2 Qualified Code(s): E11.9 - Type 2 diabetes mellitus without complications; Z79.4 - [facility] (current) use of insulin Code(s): E11.9 - Type 2 diabetes mellitus without complications Status: Chronic Assessment and Plan: Several days with sub 100 am fbg with higher premeals. - Holding mealtime scheduled insulin continuing with corrective sliding scale at mealtimes. Likely add scheduled mealtime back in on discharge and back in familiar setting/diet. - Decrease lantus 30%, 7 units daily. - hypoglycemia protocol - POC blood glucose ACHS to continue. (5) Hypertension: Qualifiers: Hypertension type: primary hypertension Qualified Code(s): I10 - Essential (primary) hypertension Code(s): I10 - Essential (primary) hypertension Status: Chronic Assessment and Plan: Uncertain reason michael-i and arb on home medications. BP are stable in range over the last 24 hours. - chronic - home medications: Continue lisinopril and amlodipine. Would advise against resuming losartan if on michael-i. Restarted home Lasix (6) Left leg swelling: Code(s): M79.89 - Other specified soft tissue disorders Status: Acute Assessment and Plan: Stable. - LLE significantly more edematous than RLE, patient unsure if this is new or baseline - ultrasound of LLE: No DVT - patient on Eliquis and Lasix, continue Plan Diet: Heart healthy and has glucerna ordered. Change to soft diet as no dentures. GI Prophylaxis: Not currently indicated DVT Prophylaxis: Continue home Eliquis Lines: Midline in place. Code Status: Full code DS: Summary Hospital Course Reason for hospitalization: Hypertension due to UTI Hospital Course: 84 y/o F presents here with hypotension with PMH of abdominal aortic aneurysm, chronic anemia, COPD, dementia, diabetes, HTN, and hypothyroidism. The patient presents here from [facility] via EMS for further evaluation of hypotension. HPI obtained through patient interview and chart review, called POA for collateral but no answer. skilled nursing staff reported to EMS that her blood pressure was 80/20 which prompted them to call 911. BP upon EMS arrival was 96/48. Contacted NH this evening and today could not find documentation of events this morning beyond that she appeared altered. Baseline is A/Ox2-3 per NH. Currently A/Ox2 (place, self). The patient denies abdominal pain, dysuria, urinary frequency, hematuria, fever, chills, dizziness, chest pain, shortness of breath, or body aches. Initial VS at presentation: 98.1? F, HR 61, RR 15, 111/47, and 98% on RA. ED workup showed: No leukocytosis, hemoglobin 11.1 (previously 8.8 on 08/26/2023), INR 1.3, creatinine 1.6 and GFR 31 (previously 0.9 and GFR 60 on
[2024-05-11 13:56] VITALS: BP 118/43; PULSE 70; RESP 16; TEMP 36.6; O2SAT 100
== END 2024-05-11 14:10 | DRG 690 ==
LOC: ANHED 15:22 → ANH3MED 17:59
PROVIDERS: Emergency Medicine; Nurse Practitioner; Student in an Organized Health Care Education/Training Program; Admitting Provider Family Medicine; Emergency Provider Emergency Medicine; PCP Hospitalist; Visit Provider Nurse Practitioner Gerontology
DX: N39.0 Urinary tract infection, site not specified (principal); N17.9 Acute kidney failure, unspecified; R78.81 Bacteremia; I10 Essential (primary) hypertension; I71.40 Abdominal aortic aneurysm, without rupture, unspecified; J44.9 Chronic obstructive pulmonary disease, unspecified; E03.9 Hypothyroidism, unspecified; D50.9 Iron deficiency anemia, unspecified; B96.1 Klebsiella pneumoniae [K. pneumoniae] as the cause of diseases classified elsewhere; M79.89 Other specified soft tissue disorders; F03.90 Unspecified dementia, unspecified severity, without behavioral disturbance, psychotic disturbance, mood disturbance, and anxiety; Z20.822 Contact with and (suspected) exposure to COVID-19; Z89.422 Acquired absence of other left toe(s); Z79.4 Long term (current) use of insulin; Z79.01 Long term (current) use of anticoagulants; Z89.421 Acquired absence of other right toe(s); Z87.891 Personal history of nicotine dependence
CPT/HCPCS: 36415; 36569; 80048; 80053; 81001; 82948; 83036; 85025; 85027; 85610; 85730; 87040; 87086; 87181; 87186; 87637; 93005; 93971; 96361; 96365; 96375; 96376; 99285; A9270; C1751; G0378; J0696; J1815; J2003; J7030

== ENCOUNTER 2024-07-12 21:22 | Emergency (ER) | payer MEDICARE, MEDICAID, SELFPAY ==
--- NOTE | ~2024-07-12 | CT_ITS ---
EXAMINATION: CT brain wo con DATE: 07/12/2024 22:04 INDICATION: fall, possible HI . TECHNIQUE: Computed tomography (CT) of the head was performed without intravenous contrast. The mA wa s adjusted according to patient size. Iterative reconstruction technique was employed. The dose-lengt h product was 983.67 mGy-cm. COMPARISON: 04/06/2024. FINDINGS: Mild motion artifact is present which persisted in repeated imaging attempts. No acute intracranial hemorrhage or extra-axial fluid collection. No hydrocephalus, mass, or herniation. No acute ischemic infarct. Unremarkable dural venous sinus attenuation. No acute osseous abnormality. Mild right frontal and ethmoid mucosal thickening, the remaining aerated spaces are clear. Moderate atrophy and severe chronic white matter change. Atherosclerotic intracranial calcification. Bilateral lens replacements. Focal left frontal encephalomalacia. 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 Superior frontal scalp mass with calcification. IMPRESSION: No acute intracranial process. 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 SPUDDER
--- NOTE | ~2024-07-12 | CT_ITS ---
EXAMINATION: CT cervical spine wo con DATE: 07/12/2024 22:05 INDICATION: fall, possible HI TECHNIQUE: Computed tomography (CT) of the cervical spine was performed without intravenous contrast. Automated exposure control and iterative reconstruction technique were employed. The dose-length pro duct was 89.74 mGy-cm. COMPARISON: 04/06/2024. FINDINGS: Vertebral Body Alignment: Stable mild grade 1 multilevel listheses. Craniocervical and atlantoaxial alignment: Moderate degenerative change with pannus. Alignment intact . Osseous structures/fracture: No evidence of a lytic or blastic process in the visualized spine. No e vidence of acute fracture. Cervical soft tissues: The paraspinal soft tissues planes are maintained. Degenerative changes: Multilevel degenerative disc disease and facet arthropathy. Severe right neural foraminal narrowing at C3-4 and C4-5 secondary to degenerative changes. No severe central canal narr owing. IMPRESSION: No acute fracture or traumatic malalignment in the cervical spine. 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 [employer]
--- NOTE | ~2024-07-12 | XR_ITS ---
EXAM: XR hip RT 2V w AP pelvis DATE: 07/12/2024 22:09 HISTORY: fall, hip pain . COMPARISON: 01/12/2024. FINDINGS: Osteopenia. Lumbar degenerative disc disease. Bilateral hip osteoarthritis. Mild osteitis pubis. Scattered vascular calcifications. No fracture or dislocation. No lytic or blastic lesion IMPRESSION: No acute osseous finding in the pelvis or right hip. 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
[2024-07-12 21:19] VITALS: BP 97/37; PULSE 74; RESP 15; TEMP 36.4; O2SAT 99
--- NOTE | 2024-07-12 22:54 | ED.FALL ---
HPI - Fall General Chief Complaint: Fall Stated Complaint: UNWITTNESSED FALL OUT OF BED; POSSIBLE HEAD INJURY Time Seen by Provider: 07/12/24 21:27 Source: patient Mode of arrival: EMS Limitations: no limitations and dementia History of Present Illness HPI Narrative: Patient is an 84-year-old female who presents the ED via EMS with report of a fall. Patient is a resident of [facility]. Per custodial report, patient had a fall out of bed that was unwitnessed. They are unsure if she hit her head. She is on Eliquis 2.5 mg b.i.d.. Sent here for further evaluation. Patient is unable to tell me how the fall occurred. Per records, patient has hx of dementia and is alert oriented x1 at baseline. This is consistent with my evaluation. She denies any areas of pain. Related Data Home Medications Medication Instructions Recorded Confirmed albuterol sulfate 90 mcg/actuation 2 inh inhalation BID PRN Shortness 02/03/20 05/06/24 aerosol inhaler Of Breath atorvastatin 10 mg tablet 10 mg PO DAILY 01/21/23 05/06/24 cholecalciferol (vitamin D3) 25 25 mcg PO DAILY 01/21/23 05/06/24 mcg (1,000 unit) capsule (Vitamin D3) insulin glargine 100 unit/mL (3 10 unit subcut QAM 01/21/23 05/06/24 mL) subcutaneous pen (Lantus Solostar U-100 Insulin) levothyroxine 75 mcg tablet 75 mcg PO DAILY 01/21/23 05/06/24 mirtazapine 15 mg tablet 7.5 mg PO HS 01/21/23 05/06/24 ondansetron HCl 4 mg tablet 4 mg PO DAILY 01/21/23 05/06/24 benzocaine 20 %-menthol 0.1 %-zinc 1 ea mucous membrane TID PRN mouth 08/14/23 05/06/24 chloride 0.15 % mucosal gel sores (Orajel 3X Mouth Sores) furosemide 20 mg tablet 20 mg PO DAILY 08/14/23 05/06/24 gabapentin 100 mg capsule 100 mg PO BID 05/06/24 05/06/24 insulin lispro 100 unit/mL 5 unit subcut TIDWM 05/06/24 05/06/24 subcutaneous half-unit pen lisinopril 10 mg tablet 10 mg PO DAILY 05/06/24 05/06/24 Allergies Allergy/AdvReac Type Severity Reaction Status Date / Time codeine Allergy Rash Verified 05/06/24 18:46 vancomycin Allergy Difficulty Verified 05/06/24 18:46 Breathing Review of Systems Review of Systems: All systems reviewed & are unremarkable except as noted in HPI. 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 Needed amputation to all 5 toes Family History Family History Sibling Diabetes mellitus Social History Social History Smoking packs per day: 1 Smoking cigarettes per day: 20.0 Years smoked: 50 Smoking pack-years: 50.00 Smoking status: Former smoker Alcohol intake: never Substance use: never Occupation/Education: retired Gender identity (if verbalized by the patient): Female Sexual Orientation (if Verbalized by the Patient): Straight or Heterosexual Spiritual care concerns: No Exam Narrative: GENERAL: Elderly, frail, thin, non-toxic, in no acute distress. HEAD: Normocephalic. Small cyst to superior scalp, nontender. No wounds or other contusions. RESPIRATORY: Airway patent, respirations nonlabored. Clear to auscultation bilaterally, no rales, rhonchi, wheezing. CARDIOVASCULAR: Regular rate and rhythm MUSCULOSKELETAL: No gross deformities. Partial amputation of L foot. Small pressure wound over R lateral hip without evidence of infection. Mild TTP over R lateral hip. SKIN: Warm, dry, normal color. NEURO: A&O X1. Speech clear. Answers some questions. No ataxic movements. PSYCHIATRIC: Confused Course Vital Signs Vital signs: Vital Signs Temperature 97.5 F L 07/12/24 21:19 Pulse Rate 74 07/12/24 21:19 Respiratory Rate 15 07/12/24 21:19 Blood Pressure 97/37 L 07/12/24 21:19 Pulse Oximetry 99 07/12/24 21:19 Oxygen Delivery Room Air 07/12/24 21:19 Temperature 97.5 F L 07/12/24 21:19 Pulse Rate 74 07/12/24 21:19 Respiratory Rate 15 07/12/24 21:19 Blood Pressure 97/37 L 07/12/24 21:19 Pulse Oximetry 99 07/12/24 21:19 Oxygen Delivery Room Air 07/12/24 21:19 MDM - Fall MDM Narrative Medical decision making narrative: Patient presented to ED status post ground level fall from bed, coming from local custodial. Possible head injury. Patient is on Eliquis 2.5 mg b.i.d.. Sent here for further evaluation. Patient stable upon arrival. Alert oriented x1 at baseline and currently. hx dementia. [facility] staff reported patient was at baseline after fall. No gross focal deficits or deformities on exam. Did complain of some pain to her right hip. CT brain and cervical spine were obtained and without traumatic findings. X-ray of right hip/pelvis was obtained and negative. Patient denies any other areas of pain at this time. Will be discharged back to the custodial. Given return precautions, discussed on paperwork. Discharged in stable condition. Medical Records Attestation: I reviewed the patient's medical records. Imaging Data Attestation: I personally reviewed and interpreted this imaging study as follows: Radiologist's impression: ITS Impressions Head CT 07/12/24 22:08 IMPRESSION: No acute intracranial process. Cervical Spine CT 07/12/24 22:12 IMPRESSION: No acute fracture or traumatic malalignment in the cervical spine. Hip/Pelvis X-Ray 07/12/24 22:30 IMPRESSION: No acute osseous finding in the pelvis or right hip. Discharge Plan Discharge Clinical Impression: Fall from bed Qualifiers: Encounter type: initial encounter Qualified Code(s): W06.XXXA - Fall from bed, initial encounter Dementia Qualifiers: Dementia type: unspecified type Dementia severity: unspecified severity Dementia behavioral or psychological symptom: unspecified whether behavioral, psychotic, or mood disturbance or anxiety Qualified Code(s): F03.90 - Unspecified dementia, unspecified severity, without behavioral disturbance, psychotic disturbance, mood disturbance, and anxiety Patient Disposition: NH Intermediate/Asst Living Condition: Stable Instructions: Antibiotic Form, Fall Prevention for Older Adults (ED), Head Injury (ED) Additional Instructions: Patient's imaging here of her hips, neck, and brain did not show any evidence of traumatic findings. Return patient to the ED if she experiences recurrent fall or injury, severe pain, increased confusion, unable to keep down food or drink, difficulty breathing, fevers, or any other symptoms of concern. Prescriptions: No Action albuterol sulfate 90 mcg/actuation HFA aerosol inhaler 2 inh INHALATION BID PRN (Reason: Shortness Of Breath) atorvastatin 10 mg tablet 10 mg PO DAILY ondansetron HCl 4 mg tablet 4 mg PO DAILY levothyroxine 75 mcg tablet 75 mcg PO DAILY mirtazapine 15 mg tablet 7.5 mg PO HS cholecalciferol (vitamin D3) [Vitamin D3] 25 mcg (1,000 unit) Capsule 25 mcg PO DAILY insulin glargine [Lantus Solostar U-100 Insulin] 100 unit/mL (3 mL) insulin pen 10 unit SUBCUT QAM amlodipine [Norvasc] 5 mg Tablet 10 mg PO QAM Qty: 30 0RF lisinopril 10 mg tablet 10 mg PO DAILY gabapentin 100 mg capsule 100 mg PO BID insulin lispro 100 unit/mL insulin pen, half-unit 5 unit SUBCUT TIDWM sulfamethoxazole-trimethoprim 800-160 mg Tablet 1 tab PO Q12HR 3 Days Qty: 7 0RF Eliquis 2.5 mg Tablet 2.5 mg PO Q12HR 30 Days Qty: 60 0RF Zyrtec 10 mg capsule 10 mg PO DAILY PRN (Reason: allergy symptoms) Qty: 30 0RF furosemide 20 mg tablet 20 mg PO DAILY Orajel 3X Mouth Sores 20-0.1-0.15 % Gel 1 ea MUCOUS MEMBRANE TID PRN (Reason: mouth sores) Rx Instructions: mouth sores ferrous sulfate 325 mg (65 mg iron) Tablet,Delayed Release (Dr/Ec) 325 mg PO BID Qty: 60 0RF Rx Instructions: take with meals Follow-up/Referrals: Sunday Pang MD [Primary Care Provider] - Time of Disposition: 22:57
[2024-07-12 23:34] VITALS: BP 106/41; PULSE 72; RESP 14; O2SAT 95
== END 2024-07-12 23:40 ==
PROVIDERS: Emergency Provider Physician Assistant; PCP Hospitalist
DX: S79.911A Unspecified injury of right hip, initial encounter (principal); F03.90 Unspecified dementia, unspecified severity, without behavioral disturbance, psychotic disturbance, mood disturbance, and anxiety; I10 Essential (primary) hypertension; J44.9 Chronic obstructive pulmonary disease, unspecified; E03.9 Hypothyroidism, unspecified; E11.9 Type 2 diabetes mellitus without complications; D50.9 Iron deficiency anemia, unspecified; Z87.891 Personal history of nicotine dependence; Z89.431 Acquired absence of right foot; Z89.412 Acquired absence of left great toe; Z89.422 Acquired absence of other left toe(s); Z79.4 Long term (current) use of insulin; Z79.01 Long term (current) use of anticoagulants; Z79.899 Other long term (current) drug therapy; W06.XXXA Fall from bed, initial encounter
CPT/HCPCS: 70450; 72125; 73502; 99284

== ENCOUNTER 2024-08-09 14:57 | Emergency (ER) | payer MEDICARE, MEDICAID, SELFPAY ==
[2024-08-09] VITALS (8 sets, daily range): BP systolic 90–138; BP diastolic 46–89; PULSE 83–117; RESP 15–21; TEMP 36.8–38.1; O2SAT 93–100
--- NOTE | ~2024-08-09 | CT_ITS ---
EXAMINATION: CT hip LT wo con DATE: 08/09/2024 15:26 INDICATION: Left hip injury. Fall. TECHNIQUE: Computed tomography (CT) of the left hip was performed without intravenous contrast. Autom ated exposure control and iterative reconstruction technique were employed. The dose-length product w as 388.35 mGy-cm. COMPARISON: Pelvis radiograph 07/12/2024, CT abdomen and pelvis 08/21/2023, 03/28/22 FINDINGS: The bladder is markedly distended. There is bilateral hydroureter. Stool distends the rectu m. There are widespread arterial calcifications. There are no pathologically enlarged lymph nodes. Th ere is no free intraperitoneal fluid. Alignment is normal. No fracture. Osteitis pubis is noted. Ther e is moderate osteoarthritis of the hips. There is chronic soft tissue swelling/scarring posterior to proximal left femur. IMPRESSION: 1. No fracture. 2. Moderate osteoarthritis of the hips. 3. Markedly distended bladder. Bilateral hydroureter. Reviewed, dictated and finalized at location A. K MAKER
--- NOTE | ~2024-08-09 | CT_ITS ---
EXAMINATION: CT brain wo con DATE: 08/09/2024 15:26 INDICATION: Head injury. Fall. TECHNIQUE: Computed tomography (CT) of the head was performed without intravenous contrast. The mA wa s adjusted according to patient size. Iterative reconstruction technique was employed. The dose-lengt h product was 605.33 mGy-cm. COMPARISON: Head CT 07/12/2024 FINDINGS: There is an old infarct in the left thalamus. There are old infarcts in the bilateral cauda te nuclei. There is an old infarct in the left frontal lobe. There are scattered areas of low attenua tion in the cerebral white matter. There is no intracranial hemorrhage, acute infarction, or abnormal intracranial mass lesion. There is an old infarct in right cerebellum. The ventricles are normal in size. There is mucosal thickening in the paranasal sinuses. There are likely changes of ocular lens r eplacement surgeries. There are small bilateral mastoid effusions. There is a 17 mm mass with calcifi cations in the right superior scalp, likely an old hematoma or sebaceous cyst. IMPRESSION: 1. 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 2. Stable extensive nonspecific cerebral white matter disease, which likely represents chronic small vessel ischemic disease. 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 2. Stable extensive nonspecific cerebral white matter disease, which likely rep resents chronic small vessel ischemic disease.
--- NOTE | 2024-08-09 15:30 | ED_ITS ---
HPI - Fall General Chief Complaint: Fall Stated Complaint: fall Time Seen by Provider: 08/09/24 15:00 History of Present Illness HPI Narrative: 84-year-old female with a past medical history including advanced dementia which is A&O x1 at baseline. She also has a history of diabetes, chronic anticoagulation with Eliquis, COPD. She presents from her nursing home facility for evaluation after a fall. Patient is not able to provide any salient details as patient is a poor historian. Report by EMS was that patient's roommate witnessed the fall and called EMS. Per EMS there was no loss of consciousness but the patient is complaining of some left hip pain, headache. Patient is on hospice care and DNR per paperwork. EMS had some hyperglycemic blood glucose but no other vital concerns. Presently she is pleasant, cooperative, states she feels cold and has a headache and now denies any pain in her left leg. She has some skin tears that appear in various stages from probable recent or frequent falls but nothing new or hyperacute noted, no evidence of head trauma. Related Data Home Medications ?Medication ?Instructions ?Recorded ?Confirmed ?Last Taken ?Type albuterol sulfate 90 mcg/actuation 2 inh inhalation BID PRN Shortness 02/03/20 05/06/24 Unknown History aerosol inhaler Of Breath atorvastatin 10 mg tablet 10 mg PO DAILY 01/21/23 05/06/24 Unknown History cholecalciferol (vitamin D3) 25 25 mcg PO DAILY 01/21/23 05/06/24 Unknown History mcg (1,000 unit) capsule (Vitamin D3) insulin glargine 100 unit/mL (3 10 unit subcut QAM 01/21/23 05/06/24 Unknown History mL) subcutaneous pen (Lantus Solostar U-100 Insulin) levothyroxine 75 mcg tablet 75 mcg PO DAILY 01/21/23 05/06/24 Unknown History mirtazapine 15 mg tablet 7.5 mg PO HS 01/21/23 05/06/24 Unknown History ondansetron HCl 4 mg tablet 4 mg PO DAILY 01/21/23 05/06/24 Unknown History benzocaine 20 %-menthol 0.1 %-zinc 1 ea mucous membrane TID PRN mouth 08/14/23 05/06/24 Unknown History chloride 0.15 % mucosal gel sores (Orajel 3X Mouth Sores) furosemide 20 mg tablet 20 mg PO DAILY 08/14/23 05/06/24 Unknown History gabapentin 100 mg capsule 100 mg PO BID 05/06/24 05/06/24 Unknown History insulin lispro 100 unit/mL 5 unit subcut TIDWM 05/06/24 05/06/24 Unknown History subcutaneous half-unit pen lisinopril 10 mg tablet 10 mg PO DAILY 05/06/24 05/06/24 Unknown History Allergies Allergy/AdvReac Type Severity Reaction Status Date / Time codeine Allergy Rash Verified 05/06/24 18:46 vancomycin Allergy Difficulty Verified 05/06/24 18:46 Breathing Review of Systems Review of Systems: As reviewed above in [facility] Past Medical History Medical History Dementia Occult blood in stools Iron deficiency anemia Abdominal pain Abdominal aortic aneurysm COPD (chronic obstructive pulmonary disease) Hypothyroid Diabetes mellitus Hypertension Surgical History Surgical History 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 Needed amputation to all 5 toes Family History Family History Sibling Diabetes mellitus Social History Social History Smoking packs per day: 1 Smoking cigarettes per day: 20.0 Years smoked: 50 Smoking pack-years: 50.00 Smoking status: Former smoker Alcohol intake: never Substance use: never Occupation/Education: retired Gender identity (if verbalized by the patient): Female Sexual Orientation (if Verbalized by the Patient): Straight or Heterosexual Spiritual care concerns: No Exam Narrative: GENERAL: [Well-appearing, well-nourished, and in no acute distress.] HEAD: [Normocephalic, atraumatic.] Lipoma noted over the top of the right scalp EYES: [PERRLA and EOMI.] ENT: Nares clear, no rhinorrhea or epistaxis. Mucous membranes moist. NECK: Supple. CHEST: [Clear to auscultation. No respiratory distress.] HEART: [Regular rate and rhythm]. No murmur heard. [Normal peripheral pulses.] ABDOMEN: [Soft, nondistended], [nontender], [No rigidity or guarding] EXTREMITIES: Normal range of motion. [No edema.] Tenderness to palpation over the left proximal hip but no step-offs deformities. Moves all extremities equally SKIN: Various bruising noted throughout both arms and legs, various stages but no acute skin avulsions or lacerations. NEURO: No obvious or new focal deficits appreciated. Alert and oriented x1 at baseline PSYCH: Pleasant and cooperative Course Vital Signs Vital signs: Vital Signs Temperature 36.8 C 08/09/24 14:50 Pulse Rate 115 H 08/09/24 14:50 Respiratory Rate 15 08/09/24 14:50 Blood Pressure 138/89 08/09/24 14:50 Pulse Oximetry 98 08/09/24 14:50 Oxygen Delivery Room Air 08/09/24 14:50 Temperature 38.1 C H 08/09/24 18:17 Pulse Rate 83 08/09/24 18:17 Respiratory Rate 17 08/09/24 18:17 Blood Pressure 90/46 L 08/09/24 18:17 Pulse Oximetry 93 08/09/24 18:17 Oxygen Delivery Room Air 08/09/24 14:50 MDM - Fall MDM Narrative Medical decision making narrative: 84-year-old female presenting from her nursing home facility after falling while rolling out of bed. Not witnessed but also was heard by the patient's roommate. Patient did not lose consciousness. She has complained of a headache and some pain in her left hip. She has no evidence of external obvious or significant trauma but does have previous bruising to her arms and legs from probable frequent falls and other falls previously. Patient is on hospice and DNR. She is slightly tachycardic likely secondary to pain but otherwise has normal vital signs no hypoxia, fever, blood pressure concerns. CT scan of the head and CT scan of the left hip were obtained and she was given Tylenol for analgesia. Patient is alert oriented x1 which is at her baseline with no new or obvious focal deficits. CT of the head shows old infarcts, stable chronic white matter disease. Nothing acute or new. Nothing traumatic. CT of the left hip shows no fractures, osteoarthropathy of the hips, distended bladder with hydroureter. Patient did receive a straight catheterization with relief for distended bladder. She felt improved after this. She was also provide Tylenol for analgesia. Patient is resting comfortably at this time and has no other acute complaints. She is stable to discharge back to her hospice facility at this time. EMS ambulance was arranged. Medical Records Attestation: I reviewed the patient's medical records. Lab Data Attestation: I reviewed the patient's lab results. Labs: Lab Results 08/09/24 Range/Units 15:52 POC Capillary Glucose 335 H (65-105) mg/dl Imaging Data Attestation: I personally reviewed and interpreted this imaging study as follows: My impression: Impressions Head CT 08/09/24 15:27 IMPRESSION: 1. 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 2. Stable extensive nonspecific cerebral white matter disease, which likely represents chronic small vessel ischemic disease. Hip CT 08/09/24 15:31 IMPRESSION: 1. No fracture. 2. Moderate osteoarthritis of the hips. 3. Markedly distended bladder. Bilateral hydroureter. Discharge Plan Discharge Clinical Impression: CHI (closed head injury), Fall, Hip pain, Hyperglycemia, Hospice care patient Patient Disposition: Hospice - Home Condition: Stable Instructions: Head Injury (ED), Acute Urinary Retention in Women (ED), Fall Prevention (ED) Additional Instructions: Follow-up with your hospice provider. Return with any new or worsening concerns at any time. Patient Language: Wolof Prescriptions: No Action albuterol sulfate 90 mcg/actuation HFA aerosol inhaler 2 inh INHALATION BID PRN (Reason: Shortness Of Breath) atorvastatin 10 mg tablet 10 mg PO DAILY ondansetron HCl 4 mg tablet 4 mg PO DAILY levothyroxine 75 mcg tablet 75 mcg PO DAILY mirtazapine 15 mg tablet 7.5 mg PO HS cholecalciferol (vitamin D3) [Vitamin D3] 25 mcg (1,000 unit) Capsule 25 mcg PO DAILY insulin glargine [Lantus Solostar U-100 Insulin] 100 unit/mL (3 mL) insulin pen 10 unit SUBCUT QAM amlodipine [Norvasc] 5 mg Tablet 10 mg PO QAM Qty: 30 0RF lisinopril 10 mg tablet 10 mg PO DAILY gabapentin 100 mg capsule 100 mg PO BID insulin lispro 100 unit/mL insulin pen, half-unit 5 unit SUBCUT TIDWM sulfamethoxazole-trimethoprim 800-160 mg Tablet 1 tab PO Q12HR 3 Days Qty: 7 0RF Eliquis 2.5 mg Tablet 2.5 mg PO Q12HR 30 Days Qty: 60 0RF Zyrtec 10 mg capsule 10 mg PO DAILY PRN (Reason: allergy symptoms) Qty: 30 0RF furosemide 20 mg tablet 20 mg PO DAILY Orajel 3X Mouth Sores 20-0.1-0.15 % Gel 1 ea MUCOUS MEMBRANE TID PRN (Reason: mouth sores) Rx Instructions: mouth sores ferrous sulfate 325 mg (65 mg iron) Tablet,Delayed Release (Dr/Ec) 325 mg PO BID Qty: 60 0RF Rx Instructions: take with meals Follow-up/Referrals: Sunday Pang MD [Primary Care Provider] - Time of Disposition: 17:32
[2024-08-09 16:02] LABS: Glucose Point of Care 335 mg/dl (65-105)
[2024-08-09] MEDS: ACETAMINOPHEN 500 MG TABLET 1000 MG PO (17:05)
--- NOTE | 2024-08-09 17:17 | PC.NURSE ---
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 Shonna Jackman
--- NOTE | 2024-08-09 17:28 | PC.NURSE ---
spoke to Quang KENNEY at [phone] for a pt update
--- OUTSIDE RECORDS SUMMARY | 2024-08-16 02:33 | XMS_ITS | Continuity of Care Document ---
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 Name Role Phone Shirley Monteiro Unavailable Unavailable Procedures Procedure Date Eye Exam & Treatment Refraction Eye Exam & Treatment Eye Exam & Treatment Dilated Retinal Exam W Interpretation Ap Eye Exam & Treatment Advance Directives Directive Yes / No Effective Date File Name No Information Encounters Encounter Description Practice Location Reason(s) For Visit Diagnoses Date Provider Providers Copied on Encounter [facility], [address] [place] [address] [address], [place], [place], [id number], tel:[phone] SEC [facility] No Information Nov-2 9-201 0 Thania Watson. [address] , [address], [place], [place], [facility], [place]. tel:[phone] [facility], [address] [place] [address] [address], [place], [place], [id number], [place] tel:[phone] [facility] No Information Apr-0 9-200 9 Thania Veliz [address] , [address], [place], [place], [facility], [place]. tel:[phone] [facility], [address] [place] [address] [address], [place], [place], [id number], [place] tel:[phone] [facility] No Information Apr-0 3-200 8 Monteiro Shirley. [address], [address], [place], [address], [place]. tel:[phone] [facility], [address], [place], [place], [id number], [place] tel:[phone] [facility] No Information Apr-0 3-200 7 Chloe Vinson. [address], [address], [place], [place], [id number], [place]. tel:[phone] Family History Family Member Type Diagnosis Age At Onset No Information Payers Payer name Insurance type Covered libertarian ID Authoriza tion(s) No Information Social History Type Description Quantity Date Captured Comments Sex Female Smoking Status No Information Chief Complaint And Reason For Visit No Information Reason For Referral Reason For Referral No Information History Of Present Illness Encounter Date Complaint History Of Prese nt Illness No Information Functional Status Date Functional Assessmen t No Information Instructions Date Instruction Additional Infor mation No Information Assessments Type Assessment Date No Information Patient Care Teams Name Effective Dates (start - stop) Status Members No Information
--- OUTSIDE RECORDS SUMMARY | 2024-08-16 02:33 | XMS_ITS | CONTINUITY OF CARE DOCUMENT ---
Author Name raffi, raffi Address Unknown Organization [facility] Address [address] [place] [address] Phone [phone] Care Team Providers Care Latrine Cleaner Name Role Phone Bird Krueger MD Unavailable Pramod Logan MD Unavailable Pramod Logan MD Unavailable [phone] PROBLEMS Condition Status Date Provider Notes Hypothyroidism active Bird Krueger MD Hypertension active Bird Krueger MD Diabetes mellitus, type 2 active Bird alvarez MD CKD active Bird Krueger MD CHF active Bird Krueger MD Leg edema active Bird Krueger MD EKG active Bird Krueger MD ENCOUNTERS Date Type Provider Location Encounter Diag nosis - In-person encounter Office Visit Bird Krueger MD [facility] EKGLeg edemaCHFCKDDiabetes mellitus, type 2HypertensionHypothyroidis m VITAL SIGNS Date Observation Value Provider Body Mass Index (Ratio) 23.83 kg/m2 Dulce Krueger MD weight E&M 118 [lb_av] Tonsha Js blood pressure, diastolic 57 mm[Hg] To nsha Weinstein blood pressure, systolic 123 mm[Hg] Ton sha Weinstein blood pressure, resting Yes Tons glass Weinstein oxygen saturation, oximetry 92 % [facility] respiratory rate E&M 16 /min [facility] pulse rate 69 /min [facility] temperature site temporal [facility] temperature E&M 98.6 [degF] [facility] height E&M 59 [in_i] [facility] ALLERGIES No Known Drug Allergies HISTORY OF MEDICATION USE Medication Status Instructions Dates Provider Indications Com ments MULTIVITAMIN ADULT ORAL TABLET active take 1 tab daily 8 Margarita Fagan ASPIRIN ADULT LOW DOSE 81 MG ORAL TABLET DELAYED RELEASE active take 1 tab daily 8 Margarita Fagan FERROUS SULFATE 27 MG ORAL TABLET active take 1 tab dialy 8 Margarita Fagan AMLODIPINE BESYLATE 10 MG ORAL TABLET active take one half tab daily 8 Alexsander Weir LISINOPRIL TABLET active take 1 tab daily 12/03 8 Margarita Fagan FUROSEMIDE 40 MG ORAL TABLET active one tab twice daily 8 [facility] ALBUTEROL SULFATE HFA 108 (90 BASE) MCG/ACT INHALATION AEROSOL SOLUTION active 1 [facility] #8.5, 25 days supply, Filled 09/24/2019 CARVEDILOL 25 MG ORAL TABLET active 9 [facility] #60, 30 days supply, Filled 12/01/2019 LOVASTATIN 40 MG ORAL TABLET active 0 [facility] #90, 90 days supply, Filled 12/02/2019 FUROSEMIDE 40 MG ORAL TABLET active 0 [facility] #60, 30 days supply, Filled 12/02/2019 GLIMEPIRIDE 1 MG ORAL TABLET active 1 [facility] #60, 30 days supply, Filled 12/13/2019 POTASSIUM CHLORIDE JEFE ER 20 MEQ ORAL TABLET EXTENDED RELEASE active 8 [facility] #30, 30 days supply, Filled 12/20/2019 LEVOTHYROXINE SODIUM 75 MCG ORAL TABLET active 8 [facility] #30, 30 days supply, Filled 12/20/2019 SOCIAL HISTORY Date Observation Value Provider drug use no Bird Krueger MD alcohol use no Bird Krueger MD social history E&M S moking History: P ayse has never smoked. Alexsander Weir social history reviewed E&M reviewed - no changes required Alexsander Weir smoking status Never smoker Bird Krueger MD FAMILY HISTORY Family Member Condition Father Family History of Co ngestive Heart Failure: Father Family History of Co ronary Artery Disease: Mother Family History Unkno wn INSURANCE PROVIDERS Payer name Policy type / Coverage type [place] red libertarian ID [employer] H[employer] HMO [id number] ADVANCE DIRECTIVES Name Date DISCUSSED - NO DECISION MADE TREATMENT PLAN Date Name Performer Cardiology:On levothyroxine. Raymond Weir Cardiology:Per PCP Alexsander rae Cardiology: B P today: 123/57 Alexsander Weir Cardiology:Will chec k standing venous doppler, KIM, echo. W ill also reduce her amlodipine from 10 to 5 mg. Alexsander Weir Date Name Venous Doppler Bilat eral LE - Reflux Arterial Duplex Bi-L ower EX Complete Echo HISTORY OF PROCEDURES Procedure Date Procedure Name Provider Procedure Notes S tatus EKG Bird Krueger MD completed
== END 2024-08-09 19:16 | disposition hospice, home (50) ==
PROVIDERS: Emergency Provider Student in an Organized Health Care Education/Training Program; PCP Hospitalist
DX: S79.912A Unspecified injury of left hip, initial encounter (principal); S09.90XA Unspecified injury of head, initial encounter; E11.65 Type 2 diabetes mellitus with hyperglycemia; Z51.5 Encounter for palliative care; F03.90 Unspecified dementia, unspecified severity, without behavioral disturbance, psychotic disturbance, mood disturbance, and anxiety; J44.9 Chronic obstructive pulmonary disease, unspecified; I10 Essential (primary) hypertension; E03.9 Hypothyroidism, unspecified; D50.9 Iron deficiency anemia, unspecified; Z87.891 Personal history of nicotine dependence; Z89.432 Acquired absence of left foot; Z89.431 Acquired absence of right foot; Z79.01 Long term (current) use of anticoagulants; Z79.4 Long term (current) use of insulin; Z79.899 Other long term (current) drug therapy; M16.0 Bilateral primary osteoarthritis of hip; N13.4 Hydroureter; R90.82 White matter disease, unspecified; N32.89 Other specified disorders of bladder; W19.XXXA Unspecified fall, initial encounter
CPT/HCPCS: 70450; 73700; 82948; 99284; A9270